=== PATIENT | male | born 1940 | race Caucasian/White ===

== ENCOUNTER → 2023-02-20 14:40 | Outpatient (REF) | payer MEDICARE, BC, SELFPAY | LOC: RAD 14:40 | PROVIDERS: ATTENDING PHYSICIAN Podiatrist Foot Surgery; FAMILY PHYSICIAN Internal Medicine | DX: M21.619 Bunion of unspecified foot (principal); S80.829A Blister (nonthermal), unspecified lower leg, initial encounter | CPT/HCPCS: 93922; 93925 ==

== ENCOUNTER → 2023-07-30 12:18 | Outpatient (REF) | payer MEDICARE, BC, SELFPAY ==
[2023-07-30 14:07] LABS: Hematocrit 36.2 % (39.0-52.0); Mean Corp Hgb Conc. 33.1 g/dL (33.0-37.0); Mean Corpuscular Hgb 30.5 pg (27.0-31.0); Mean Corpuscular Volume 92.1 fL (80.0-94.0); Mean Platelet Volume 11.9 fL (7.4-10.4); Platelet Count 109 10^3/uL (130-400); Red Blood Cell Count 3.93 10^6/uL (4.70-6.10); Red Cell Dist. Width 15.2 % (11.5-14.5); White Blood Cell Count 5.1 10^3/uL (4.8-10.8)
== END ==
LOC: SDSPAT 12:18
PROVIDERS: ATTENDING PHYSICIAN Orthopaedic Surgery Hand Surgery; FAMILY PHYSICIAN Internal Medicine
DX: Z01.818 Encounter for other preprocedural examination (principal)
CPT/HCPCS: 36415; 85027; 93005

== ENCOUNTER 2023-08-11 06:23 | Day surgery (SDC) | payer MEDICARE, BC, SELFPAY ==
[2023-07-30 13:36] VITALS: BMI 27.1
--- NOTE | 2023-07-31 10:30 | CM ---
Late entry for 07/28/23. Patient's Daughter, Belen Reeves along with her Sister called me stating that the Orthopedic Surgeon's office had stated that I had denied a skilled stay for him, after his upcoming surgery. I stated that was not true, and
that I had explained that because he is currently scheduled as an outpt , that he would therefore, based on Medicare's 3 Inpt qualifying stay for their SNF benefit, he would not qualify for a SNF stay under Medicare. They asked if the surgeon could
change the loc to inpt, and I explained that only if there was a medical reason to change the level of care once he is here.I explained we are unable to change it just so that he qualifies for a SNF stay under Medicare as that would be considered
fraud ,which they understood. I reviewed the other options of either paying privately for a SNF, hiring 18/01 care givers or taking him home with one of them. They at first declined all of those options and asked how we could send someone home that
currently uses a walker and will have difficulty with one arm in a sling using that walker and would be a fall risk and unable to care for himself. I explained that I understood their concern, and was not saying he should be discharged home alone.
What I was trying to explain how the SNF benefit worked under Medicare.They asked if his level of care could change once he comes to the hospital, and I stated yes but it would need to be for a medical reason for that to occur, and reminded them
even if it was changed for a medical reason he would need to meet inpatient level of care for 3 days to qualify. They stated they understood, and asked what an estimated private pay rate would be for a SNF and I stated high $300 to $400 a day on
average. They asked if they could set that up ahead of time and I said yes they would just need to call the SNF of their choice to confirm their daily rate . I also stated that it would be dependent on bed availability on the day that their Father
would be leaving the hospital. I asked if they had any preferences for a SNF and they stated [facility]. I stated I would reach out to the [employer] for [place] and ask her to give Belen a call back to
discuss what their examination supervisor rate is and the possibility of having him come to their facility after his surgery.
--- NOTE | 2023-07-31 12:02 | CM ---
Call received from Lora ([phone]) at [facility] in [place]. She stated she was just calling to discuss this patient's upcoming surgery. She stated that he was in for a recent visit with them. Lora stated alough the CO can not offer any
assistance with a SNF stay, they could offer Visiting nurse and a PT to come to his home. He also told her that he has [facility] for 4 hours a day. I states I had spoken to two of his Daughters earlier this week, and explained that in order to
qualify for a SNF stay under Medicare he would need a 3 night iinpatient stay, however currently he is scheduled for an outpt surgery. I explained the choices I had provided to the daughters, which would be to privately pay for a SNF, hire a 24/7
caregiver , or take him home with one of them until he is stronger. I had made her aware that they were going to explore the possibility of paying privately for him to go to [facility]. She stated that the patient did not
mention that to her . She gave me her contact information and fax number [phone] if she could be of any assistance.
[2023-08-11] VITALS (7 sets, daily range): BP systolic 100–134; BP diastolic 57–73; BMI 27.1
[2023-08-11] MEDS: TYLENOL 1000 MG PO (10:32)
[2023-08-11] MEDS: NORMOSOL-R 1000 IV (10:32)
[2023-08-11] MEDS: CELEBREX 200 MG PO (10:32)
== END 2023-08-11 15:05 | disposition home or self-care (01) ==
LOC: SDS 06:23
PROVIDERS: ATTENDING PHYSICIAN Orthopaedic Surgery Hand Surgery; FAMILY PHYSICIAN Internal Medicine
DX: M75.101 Unspecified rotator cuff tear or rupture of right shoulder, not specified as traumatic (principal); M75.41 Impingement syndrome of right shoulder
CPT/HCPCS: 29827; 29826; C1713

== ENCOUNTER 2023-08-28 13:10 | Inpatient (IN) | payer MEDICARE, BC, SELFPAY ==
[2023-08-28] VITALS (15 sets, daily range): BP systolic 101–154; BP diastolic 42–105; BMI 25.4
--- NOTE | 2023-08-28 11:01 | ED.GENMED ---
History of Present Illness
General
Chief Complaint: Fall
Source: patient and significant other
Exam Limitations: none
Time Seen by Provider: 08/28/23 10:07
Nursing documentation reviewed up to this point in time: agreed with
Travel History
Have you had any contact with someone who has COVID-19?: No
Do you have any symptoms of coronavirus? Fever > 100 degrees, chills, cough, shortness of breath, sore throat, loss of taste or smell, muscle aches, or headache?: No
History of Present Illness
History of Present Illness:
82-year-old male history of A-fib on Eliquis
About 2 weeks status post rotator cuff surgery by Dr. Sol
Since the surgeries had periods of confusion--caregiver/friend who is with him states that she think he took extra doses of his meds by mistake last night he had a headache, today he felt like he was going to fall, having some pain in his buttock
for a while since he has been lying around no fevers no vomiting, he also stated when he walks he thinks he might have been dehydrated drank 32 ounces of water this morning
Past History
Past History
ED Past Medical History: Arrthythmia (PAF), CAD (Stents), GERD, HTN, Hypercholesterolemia, ME, Psychiatric (Anxiety) and Other (Raynaud's disease, Right BBB Cerebral hemorrhage, Chronic venous insufficiency); Negative NIDDM
ED Past Surgical History: Cardiac (PTCA with stent to proximal LAD 1998, A. fib cardioversion March 2010) and Other (Left lower extremity there is vein stripping)
Social History
Tobacco: Former smoker (Cigar occasionally and didn't inhale)
Alcohol: None
Drug: None
Personal:
Living: with family
Employment: Retired
Family History
Family History: Hypertension; Negative Sudden
Phy Exam
Physical Exam
Physical Exam:
Physical Exam
General: Confused elderly male with no signs of head or neck trauma
Neck: No tongue bite
Heart: Regular strong radial pulse
Lungs: no acute respiratory distress. clear bilaterally
Abdomen: Nontender
Neuro: Nontoxic moves all extremities
Skin: no rash
Psychiatric: cooperative
Extremities: no edema.
Course
Orders/Labs/Results
Orders:
Orders
08/28/23 Breakfast
Cholesterol Lowering
At Your Request: Full Participation
Cholesterol Lowering: Sodium, 2 Gram
08/28/23 Lunch
Cholesterol Lowering
At Your Request: Full Participation
08/28/23 10:35
Electrocardiogram (*1) Stat
Reason for Study: Other
Other Reason for Exam: Headache
CT Head W/o Iv Contrast Urgent
Comment:
Reason For Exam: headache on elquis
Cardiac Monitoring- Treatment ONCE
EKG- Treatment ONCE
08/28/23 11:08
Acetaminophen Urgent
Cardiovascular Evaluation Urgent
Comment: ADD ON
Complete Blood Count/With Diff Urgent
Comprehensive Metabolic Panel Urgent
Glycohemoglobin (HgbA1c) Urgent
Magnesium Urgent
Comment: ADD
Salicylate Urgent
08/28/23 11:16
Charcoal, Activated [Actidose-Aqua] 25 grams PO NOW STA
08/28/23 11:22
Fibrinogen Urgent
Protime/PTT Urgent
08/28/23 11:24
Prothrombin Complex(Pcc),Human [Kcentra] 1,670 unit Empty Viaflex Container 100 ml [Viaflex Empty Container] 60 ml IV NOW
08/28/23 12:08
Labetalol HCl [Trandate] 10 mg IV Q6HPRN PRN
Labetalol HCl [Trandate] 5 mg IV NOW STA
08/28/23 12:09
NIH Stroke Scale As Directed
Neurological Checks As Directed
Frequency: q4h
08/28/23 12:10
Urinalysis Reflex To Culture Urgent
Date Specimen was Collected: 08/28/23
Time Specimen was Collected: 12:08
Urine Microscopic Reflex Cult Urgent
08/28/23 12:51
Admit/Transfer Patient As Directed
Co-Sign Provider:
Level of Care: Inpatient admission
Assign to:: ICU
Physician / Group: chon garcia
Diagnosis: acute intracerebreal hemorhage
Reason for Hospitalization: acute intracerebral hemorrhage
Expected length of stay greater than two midnights?: Yes
ELOS- Estimated Length of Stay in days: 3
I certify the patient meets the requirements for IP care: Yes
08/28/23 12:53
Code Status As Directed
Resuscitation Status: Do not resuscitate
Reached after discussion with pt or family/Healthcare POA: Yes
DNR Bracelet Application ONCE
08/28/23 15:06
Alprazolam [Xanax] 0.25 mg PO HSPRN PRN
Ondansetron Injectable [Zofran] 4 mg IV Q6HPRN PRN
08/28/23 15:06
NEUROLOGY CONSULT Routine
Consulting Provider: Shaun De La Cruz
Was physician already notified: Yes
Neurosurgery Consult Routine
Consulting Provider: Alicia Fierro
Was physician already notified: Yes
VTE Contraindication Routine
VTE Mechanical Device Contraindication: Medical Contraindication
Pharmocologic Contraindication: Bleeding
Activity As Directed
Activity Level: As Tolerated
Elevate head of bed [Head of Bed-Restrictions] As Directed
Elevation Level: 45 degrees
Pneumatic Compression Sleeves As Directed
Type: Knee high
Vital Signs As Directed
Frequency: Per unit guidelines
DX Deep Vein Thrombosis Video Routine
08/28/23 15:20
Lidocaine [Lidocaine 4% Patch] 1 patch TOPICAL DAILYPRN PRN
08/28/23 16:00
Acetaminophen [Tylenol] 1,000 mg PO TID
08/28/23 18:00
CT Head W/o Iv Contrast Routine
Comment:
Reason For Exam: follow up for intraventricular hemmorhage
08/28/23 20:00
Lactobac/Bifidobac [Visbiome] 1 cap PO BID
08/28/23 22:00
Nebivolol HCl [Bystolic] 5 mg PO HS
08/29/23 03:41
Cardiovascular Evaluation IN AM
Complete Blood Count/No Diff IN AM
Comprehensive Metabolic Panel IN AM
Direct Bilirubin IN AM
Magnesium IN AM
Phos [Phosphorus] IN AM
08/29/23 06:00
Occupational Therapy Consult [Ot Eval And Treat] IN AM
Physical Therapy Consult [Pt Eval And Treat] IN AM
Activity Level: As Tolerated
08/29/23 08:00
MR Brain Without Contrast Routine
Comment: Normal MRA head previously
Reason For Exam: IVH, any signs of cavernoma other vessel abn
Recent pill cam endoscopy?: No
Atorvastatin [Lipitor] 80 mg PO DAILY
Cholecalciferol (Vitamin D3) [VITAMIN D3 (cholecalciferol)] 50 mcg PO DAILY
Finasteride [Proscar] 5 mg PO DAILY
Furosemide [Lasix] 20 mg PO DAILY
Pantoprazole [Protonix] 40 mg PO DAILY
Potassium Chloride [KCl] 10 meq PO DAILY
08/30/23 03:31
Basic Metabolic Panel IN AM
Complete Blood Count/No Diff IN AM
08/31/23 04:39
Basic Metabolic Panel IN AM
Complete Blood Count/No Diff IN AM
09/01/23 06:32
Basic Metabolic Panel IN AM
Abnormal Lab Results
08/28/23 08/28/23 08/28/23
11:08 11:22 12:10
RBC 3.84 L 10^6/uL
(4.70-6.10)
Hgb 11.8 L g/dL
(13.0-18.0)
Hct 34.7 L %
(39.0-52.0)
RDW 14.6 H %
(11.5-14.5)
MPV 10.7 H fL
(7.4-10.4)
Absolute Lymphs (auto) 0.9 L 10^3/uL
(1.2-3.4)
Lymphocytes % 16.6 L %
(20.5-51.1)
Monocytes % 11.5 H %
(1.7-9.3)
PT 18.3 H Sec
(11.4-14.6)
APTT 39.5 H Sec
(23.4-35.0)
Sodium 134 L mmol/L
(135-145)
BUN 30 H mg/dl
(9-20)
Hemoglobin A1c 6.0 H %
(4.0-5.6)
Total Bilirubin 1.8 H mg/dl
(0.2-1.3)
Alkaline Phosphatase 236 H U/L
(38-126)
Ur Occult Blood Reflex 1+ A
(Negative)
Urine Bacteria (Reflex) Few A
(Negative)
Salicylates < 1.0 L mg/dl
(2.0-20.0)
Acetaminophen < 10 L ug/ml
(10-30)
08/28/23 11:08
08/28/23 11:08
Vital Signs
Initial and Last Documented VS:
Initial Vital Signs
Temp Pulse Resp BP Pulse Ox
98.6 F 61 16 146/93 100
08/28/23 08:30 08/28/23 08:30 08/28/23 08:30 08/28/23 08:30 08/28/23 08:30
Last Documented Vital Signs
Temp Pulse Resp BP Pulse Ox
97.8 F 74 16 141/56 99
09/01/23 15:04 09/01/23 15:04 09/01/23 15:04 09/01/23 15:04 09/01/23 15:04
MDM/Problems Addressed
Differential Diagnosis Includes:
Intracerebral hemorrhage, electrolyte abnormality subdural although no direct head trauma
MDM/Problems Addressed:
Confusion headache
Chronic conditions affecting care:
A-fib
Chronic conditions affecting care: Arrhythmia
Acute Exacerbation and/or Progression of Chronic Illness: Arrhythmia
*Radiology
Radiology exam reviewed: preliminary read by ED provider and radiology read reviewed
*Pulse Oximetry
Patient hypoxic: no
*Critical Care Note
Total Time (30-74mins, 75-104mins- exclusive of procedures): 40
Update Note
Update Note:
Update, CT noted reviewed with radiology looks like a spontaneous and ventricular bleed, not aneurysmal based upon recent imaging, reviewed with neurology neurosurgery drawing checker will reverse here keep blood pressure under 140 admit to [place]
ED Attending Note
-
Portions of this chart may have been created with voice recognition software.� Occasional wrong word or��sound alike� substitutions may have occurred due to the inherent limitations of voice recognition software.
Discharge Plan
Departure
Patient Disposition: Admit
Date of Disposition: 08/28/23
Time of Disposition: 11:26
Admit to: ICU
Presentation/result/management discussed w/ accepting MD/DO: Hospitalist
Patient with high blood pressure during this ER visit?: No
Condition: Serious
Covid-19: Not Applicable
Discharge Problem:
Acute intracerebral hemorrhage
Interventions
Interventions:
*General Assessment Last Done: 08/28/23 08:30
*Neglect/Abuse Screening Last Done: 08/28/23 08:30
ED- Fall Risk Assessment Last Done: 08/28/23 09:15
*Nursing Disposition Last Done: 08/28/23 14:31
ED-Musculoskeletal Assessment Last Done: 08/28/23 09:16
ED- Neurological Assessment Last Done: 08/28/23 13:26
ED-Skin Assessment Last Done: 08/28/23 09:16
Discharge Date and Time
Discharge Date/Time: 08/28/23 14:59
[2023-08-28 11:27] LABS: % Basophils 0.9 % (0-2); % Eosinophils 1.1 % (0-6); % Immature Granulocytes 0.2 % (0-0.5); % Lymphocytes 16.6 % (20.5-51.1); % Monocytes 11.5 % (1.7-9.3); % Neutrophils 69.7 % (42.2-75.2); Absolute Basophils 0.1 10^3/uL (0-0.2); Absolute Eosinophils 0.1 10^3/uL (0-0.7); Absolute Lymphocytes 0.9 10^3/uL (1.2-3.4); Absolute Monocytes 0.6 10^3/uL (0.1-0.6); Absolute Neutrophils 3.8 10^3/uL (1.4-6.5); Hematocrit 34.7 % (39.0-52.0); Hemoglobin 11.8 g/dL (13.0-18.0); Mean Corpuscular Hgb 30.7 pg (27.0-31.0); Mean Corpuscular Volume 90.4 fL (80.0-94.0); Mean Platelet Volume 10.7 fL (7.4-10.4); Nucleated Red Blood Cells % 0 % (-); Platelet Count 137 10^3/uL (130-400); Red Blood Cell Count 3.84 10^6/uL (4.70-6.10); Red Cell Dist. Width 14.6 % (11.5-14.5); White Blood Cell Count 5.5 10^3/uL (4.8-10.8)
[2023-08-28 11:41] LABS: ALT (SGPT) 50 U/L (0-50); AST (SGOT) 51 U/L (17-59); Acetaminophen < 10 ug/ml (10-30); Alkaline Phosphatase 236 U/L (38-126); Blood Urea Nitrogen 30 mg/dl (9-20); Calcium 9.2 mg/dl (8.4-10.2); Carbon Dioxide 26 mmol/L (22-30); Chloride 103 mmol/L (98-107); Glucose 97 mg/dl (70-99); Potassium 4.8 mmol/L (3.5-5.1); Salicylate < 1.0 mg/dl (2.0-20.0); Sodium 134 mmol/L (135-145); Total Bilirubin 1.8 mg/dl (0.2-1.3); Total Protein 6.3 g/dl (6.3-8.2); eGFR > 60.00
[2023-08-28] MEDS: KCENTRA 60 UNIT IV (11:42)
--- NOTE | 2023-08-28 11:43 | CON.INTV ---
Consultation
Consultation Request
Date/Time Consultation Requested: 08/28/20231129
Date/Time Consultation Performed: 08/28/20231133
Requesting Provider: Dr. Escobedo
Performing Provider: Dr. Calhoun
Reason for Consultation: ICH
Medical History
-
Chief Complaint: Dizziness/weakness
History of Present Illness:
82-year-old male with a past medical history of anxiety, hyperlipidemia, A-fib on Eliquis, PND on Flonase, hypertension, GERD and CAD who presents with confusion and dizziness with fall. Patient had a rotator cuff surgery about 2 weeks ago by
[facility]. Since that time he has been having periods of confusion. Apparently he took extra medications yesterday for headache and today he felt like he was unsteady on his feet. He was walking in his living room today, felt weak and fell but
denies LOC. In the ER he was afebrile to 98.6 �F, heart rate 65, respiratory rate 17 breaths/min, BP 146/81, saturating 97% on room air. Initial labs showed mild hyponatremia to 134, BUN 30, total bilirubin 1.8, ALP elevated at 236. Coagulation
studies are pending. Hb 11.8, platelet count 137. Tylenol and salicylate levels are negative. CT head performed showing hyperattenuation in the posterior horns of bilateral lateral ventricles. Prothrombin complex concentrate given as patient
takes Eliquis at home. Imaging was reviewed with neurology/neurosurgery. Neurosurgery says that there is no acute neurosurgical intervention required at this time. Patient now being transferred to ICU for further care and critical care services
consulted for additional management/recommendations.
When I saw the pt he was in bed in NAD. BP 131/66, HR 73, SpO2 97% on room air. He had a BENTON this AM (frontal - non-severe), but it is gone now. He has no arm or leg weakness and denies numbness/tingling. He otherwise feels well - denies CP, SOB,
abd pain, N/V/f/c.
PMHx: A-fib on Eliquis, CAD s/p stent (to LAD � 1998), hypertension, hyperlipidemia, history of AR, history of rheumatic heart disease, RBBB, former tobacco use disorder, sleep apnea, IBS, cataracts, impaired vision, history of melanoma, varicose
veins, anxiety
PSHx: Coronary stent, varicose vein stripping, melanoma removal, cardioversion (2009), hemorrhoidectomy, septoplasty, carpal tunnel release (left � 2018), bilateral cataract surgery
Past Medical History
Past Medical History: Other (above as per HPI)
Past Surgical History: Other (above as per HPI)
Social History
Tobacco: Former Smoker
Alcohol: None
Drug: None
Personal:
Living: With Family
Employment: Retired
Family History
Family History: Hypertension
Allergies / Home Medications
Allergies
Allergy/AdvReac Type Severity Reaction Status Date / Time
amlodipine Allergy Swelling Verified 08/28/23 08:29
diltiazem Allergy edema Verified 08/28/23 08:29
montelukast sodium Allergy Rash Verified 08/28/23 08:29
[From Singulair]
nifedipine [Nifedipine] Allergy edma Verified 08/28/23 08:29
ramipril [From Altace] Allergy cough Verified 08/28/23 08:29
valsartan [From Diovan] Allergy COUGH Verified 08/28/23 08:29
FERNANDO Inhibitors AdvReac cough Verified 08/28/23 08:29
[Fernando Inhibitors]
oxycodone HCl [From Percocet] AdvReac stomach Verified 08/28/23 08:29
ache
spironolactone AdvReac tenderness Verified 08/28/23 08:29
of breast
tamsulosin AdvReac lightheaded Verified 08/28/23 08:29
Home Medications
Medication Instructions Recorded Confirmed Last Taken Type
nitroglycerin 0.4 mg sublingual 0.4 mg sublingual [id number] PRN 12/26/11 08/11/23 Unknown History
tablet chest pain
atorvastatin 80 mg tablet 80 mg PO DAILY High cholesterol 10/30/17 08/11/23 08/10/23 History
apixaban 5 mg tablet (Eliquis) 5 mg PO BID Blood clot 10/17/19 08/11/23 08/01/23 08:00 History
prevention/tx
alprazolam 0.25 mg tablet 0.25 mg PO HS Mental Health/Anxiety 08/07/20 08/11/23 08/10/23 History
fluticasone propionate 50 1 - 2 spray intranasal BID Allergy 08/07/20 08/11/23 08/10/23 History
mcg/actuation nasal Symptoms
spray,suspension
losartan 50 mg tablet 50 mg PO DAILY Blood pressure 08/07/20 08/11/23 08/10/23 History
potassium chloride 10 mEq 10 meq PO DAILY Electrolyte 08/07/20 08/11/23 08/10/23 History
tablet,extended release(part/cryst) Repletion
Lactobacillus acidophilus 1 cap PO BID 08/07/23 08/11/23 08/04/23 History
ascorbic acid (vitamin C) 500 mg 1,000 mg PO DAILY 08/07/23 08/11/23 08/04/23 History
tablet (Vitamin C)
cholecalciferol (vitamin D3) 50 50 mcg PO DAILY 08/07/23 08/11/23 08/04/23 History
mcg (2,000 unit) tablet (Vitamin
D3)
finasteride 5 mg tablet 5 mg PO DAILY 08/07/23 08/11/23 08/10/23 History
furosemide 20 mg tablet 20 mg PO DAILY 08/07/23 08/11/23 08/10/23 History
lidocaine 5 % topical cream 1 applic topical BID PRN 08/07/23 08/11/23 Unknown History
Spinal/back pain
magnesium 200 mg tablet 200 mg PO DAILY 08/07/23 08/11/23 08/04/23 History
nebivolol 5 mg tablet (Bystolic) 5 mg PO HS 08/07/23 08/11/23 08/10/23 History
omeprazole 40 mg capsule,delayed 40 mg PO DAILY@0600 08/07/23 08/11/23 08/10/23 History
release
peg 400-propylene glycol (PF) 0.4 1 drp ophthalmic (eye) PRN PRN Dry 08/07/23 08/11/23 Unknown History
%-0.3 % eye drops in a dropperette Eyes
(Systane (PF))
rimegepant 75 mg disintegrating 75 mg PO ONCE PRN Headaches 08/07/23 08/11/23 Unknown History
tablet (Nurtec ODT)
vit C 250 mg-vit E 90 mg-zinc 40 1 tab PO BID 08/07/23 08/11/23 08/04/23 History
mg-copper 1 [id number]
capsule (PreserVision AREDS-2)
zinc acetate 50 mg (zinc) capsule 50 mg PO DAILY 08/07/23 08/11/23 08/04/23 History
Review of Systems
-
History Source: Patient
All other systems: Negative unless noted
Vitals / Labs / Diagnostic Testing
Vital Signs
Temp Pulse Resp BP Pulse Ox
98.6 F 65 17 146/81 97
08/28/23 08:30 08/28/23 11:15 08/28/23 11:15 08/28/23 11:12 08/28/23 09:45
Lab Data
08/28/23 11:08
08/28/23 11:08
Diagnostic Testing:
Physical Exam
-
HEENT: Normocephalic and Anicteric
Cardiovascular: S1/S2
Respiratory: Clear, Wheeze (negative), Rales (negative), Rhonchi (negative) and Non-Labored Respirations
GI: Soft, Non Distended and Non Tender
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
Skin: Warm and Dry
General: Comfortable and Chills (negative)
Assessment
-
Assessment: 82-year-old male with a PMHx of anxiety, hyperlipidemia, A-fib on Eliquis, PND on Flonase, hypertension, GERD and CAD who presents with confusion and dizziness with fall. Patient had a recent rotator cuff surgery about 2 weeks ago and
has been having increased periods of confusion since that time. He felt weak today while walking in his living room and fell but denies loss of consciousness or head trauma. CT head performed in the ER shows intraventricular hemorrhage involving
bilateral lateral ventricles, specifically the posterior horns. No acute neurosurgical intervention required as per neurosurgery. PCC given as patient takes Eliquis at home. Patient now being transferred to ICU for admission and critical care
services consulted for additional management/recommendations.
Chronic medical conditions [employer]AM MEMBER: A-fib on Eliquis, CAD s/p stent (to LAD � 1998), hypertension, hyperlipidemia, history of AR, history of rheumatic heart disease, RBBB, former tobacco use disorder, sleep apnea, IBS, cataracts, impaired vision,
history of melanoma, varicose veins, anxiety
Impression:
#Acute intra-ventricular hemorrhage involving bilateral lateral ventricles
#A-fib on Eliquis s/p PCC administration due to above
#Hyponatremia (mild)
#Anemia (baseline Hb 12-13 g/dL)
#Thrombocytopenia (baseline plt ~110-190)
#Elevated total bilirubin
#CAD
Plan:
- Strict SBP<140mmHg
- Elevate HOB>30-45�
- Avoid all anti-platelet/anti-coagulants until clear to resume as per neurology/neurosurgery
- Follow up INR and if >1.5 then will administer Vitamin K
- Neurochecks q1hr
- Neurology recs appreciated
- Stat CT head for any sudden change in mentation or change in neurochecks; for now I will order repeat CT head in 6-12 hours to assure stability of IVH
- Trend T. bili and ALP --> check GGT and if elevated then check RUQ US to rule out biliary/GB pathology
- Maintain MAP>65
- Replete K>3.5, Mg>1.8
- DVT ppx
Critical care statement: A total of 40 minutes of critical care time was provided for this patient today. This includes management of unstable vital signs, evaluation of the patient at bedside, reviewing the patient's pertinent medical records
including radiographs, microbiology, laboratory evaluations, and discussion with primary team, consultants, pharmacy, nutrition, physical therapy, case management, charge nurse, critical care nursing, and respiratory therapy.
Data:
CT head 08-28-2023:
IMPRESSION:
Small volume acute hemorrhage layering in the posterior horn of the lateral ventricles bilaterally, left slightly greater than right.
Findings compatible with diffuse cortical atrophy with nonspecific white matter changes as described above.
--- NOTE | 2023-08-28 12:07 | HPS.HSE ---
Addendum entered and electronically signed by uElogio Bailey MD 08/28/23 13:10:
82-year-old male with a past medical history of atrial fibrillation on Eliquis, recent rotator cuff repair on 08/11/[address] Sol, hypertension, and coronary artery disease presented status post fall secondary to dizziness. Patient was found
to have small intracranial hemorrhage in the posterior horn of the lateral ventricles bilaterally, left greater than right.
Appreciate neurosurgery input, no surgical intervention recommended at this time.
Patient has received prothrombin complex for Eliquis reversal.
Appreciate neurology and desktop support technician input, monitor in the ICU, keep systolic blood pressure less than 140 strict, neurochecks.
Increase home losartan from 50 mg daily to 50 mg twice daily, labetalol 10 mg IV every 6 hours as needed.
Daughter reports intermittent confusion.
He has no signs or symptoms of infection.
Will check urinalysis for completeness sake.
I have personally seen and examined the patient, and agree with the plan of care as documented by DARIUS Ramos.
Advance care planning discussed, patient is a DNR.
All other issues as outlined by the advanced care practitioner.
Original Note:
Family Physician
-
Family Physician: Yashira Contreras
Chief Complaint
-
dizzy
History of Present Illness
82-year-old male with a past medical history of hyperlipidemia, A-fib on Eliquis, hypertension, GERD and CAD who presents with dizziness and had a fall this morning.he fell on his right and denies hitting his head. denied any hip pain. patient
stated he was feeling great since the surgery. he does not take pain medication.� Patient had a rotator cuff surgery about [address] Sol. as per daughter, he refuses to take pain medication for his post op pain. patient refused physical
therapy. he thinks that he will get addicted to pain meds. patient complaining of can't think right to daughter and neighbor. he is is no sleeping well and not eating and drinking very well. . patient denied [place]. denied chest pain, sob. denied
abdominal pain, n,v, d. denied dysuria or hematuria.
.� CT head performed showing hyperattenuation in the posterior horns of bilateral lateral ventricles.� Prothrombin complex concentrate given as patient takes Eliquis at home.�
admitting for further management.
Medical History
Past Medical History
Past Medical History: Reports Other
Additional Past Medical History:
atrial fib
CAD
HTn
HLD
TN
RBBB
Sleep apnea
IBS
Melanoma
Varicose veins
Past Surgical History: Reports Other
Additional Past Surgical History:
Cardiac stents
Cardiac surgery
Varicose vein stripping
Melanoma removal
Cardioversion
Hemorrhoidectomy
carpal tunnel surgery
Rotator cuff repair
Social History
Tobacco: Non-smoker
Alcohol: Occasional
Drug: None
Living: Alone
Family History
Family History: Not pertinent
Allergies / Home Medications
Allergies reflects when Allergies were last updated in [facility].
Home Medications with original date entered in [facility]
Allergy/Medication List:
Allergies
Allergy/AdvReac Type Severity Reaction Status Date / Time
amlodipine Allergy Swelling Verified 08/28/23 08:29
diltiazem Allergy edema Verified 08/28/23 08:29
montelukast sodium Allergy Rash Verified 08/28/23 08:29
[From Singulair]
nifedipine [Nifedipine] Allergy edma Verified 08/28/23 08:29
ramipril [From Altace] Allergy cough Verified 08/28/23 08:29
valsartan [From Diovan] Allergy COUGH Verified 08/28/23 08:29
FERNANDO Inhibitors AdvReac cough Verified 08/28/23 08:29
[Fernando Inhibitors]
oxycodone HCl [From Percocet] AdvReac stomach Verified 08/28/23 08:29
ache
spironolactone AdvReac tenderness Verified 08/28/23 08:29
of breast
tamsulosin AdvReac lightheaded Verified 08/28/23 08:29
Home Medications
nitroglycerin 0.4 mg sublingual tablet 0.4 mg sublingual [id number] PRN chest pain 12/26/11
atorvastatin 80 mg tablet 80 mg PO DAILY High cholesterol 10/30/17
apixaban 5 mg tablet (Eliquis) 5 mg PO BID Blood clot prevention/tx 10/17/19
alprazolam 0.25 mg tablet 0.25 mg PO HS Mental Health/Anxiety 08/07/20
fluticasone propionate 50 mcg/actuation nasal spray,suspension 1 - 2 spray intranasal BID Allergy Symptoms 08/07/20
losartan 50 mg tablet 50 mg PO DAILY Blood pressure 08/07/20
potassium chloride 10 mEq tablet,extended release(part/cryst) 10 meq PO DAILY Electrolyte Repletion 08/07/20
Lactobacillus acidophilus 1 cap PO BID 08/07/23
ascorbic acid (vitamin C) 500 mg tablet (Vitamin C) 1,000 mg PO DAILY 08/07/23
cholecalciferol (vitamin D3) 50 mcg (2,000 unit) tablet (Vitamin D3) 50 mcg PO DAILY 08/07/23
finasteride 5 mg tablet 5 mg PO DAILY 08/07/23
furosemide 20 mg tablet 20 mg PO DAILY 08/07/23
lidocaine 5 % topical cream 1 applic topical BID PRN Spinal/back pain 08/07/23
magnesium 200 mg tablet 200 mg PO DAILY 08/07/23
nebivolol 5 mg tablet (Bystolic) 5 mg PO HS 08/07/23
omeprazole 40 mg capsule,delayed release 40 mg PO DAILY@0600 08/07/23
peg 400-propylene glycol (PF) 0.4 %-0.3 % eye drops in a dropperette (Systane (PF)) 1 drp ophthalmic (eye) PRN PRN Dry Eyes 08/07/23
rimegepant 75 mg disintegrating tablet (Nurtec ODT) 75 mg PO ONCE PRN Headaches 08/07/23
vit C 250 mg-vit E 90 mg-zinc 40 mg-copper 1 [id number] capsule (PreserVision AREDS-2) 1 tab PO BID 08/07/23
zinc acetate 50 mg (zinc) capsule 50 mg PO DAILY 08/07/23
Review of Systems
-
Constitutional: Reports No Symptoms
EENT: Reports No Symptoms
Respiratory: Reports No Symptoms
Cardiac: Reports No Symptoms
Abdomen/GI: Reports No Symptoms
: Reports No Symptoms
Musculoskeletal: Reports No Symptoms
Skin: Reports No Symptoms
Neurological: Reports Dizzy
Endocrine: Reports No Symptoms
Hematologic/Lymphatic: Reports No Symptoms
Psych: Reports No Symptoms
Physical Exam
Vital Signs
Vital Signs
Temp Pulse Resp BP Pulse Ox
98.6 F 65 17 146/81 97
08/28/23 08:30 08/28/23 11:15 08/28/23 11:15 08/28/23 11:12 08/28/23 09:45
Physical Exam
General: Well Developed, Well Nourished and No Apparent Distress
HEENT: NormoCephalic, Moist mucous membranes and Atraumatic
Respiratory: Clear
Cardiac: S1/S2 and Regular Rhythm; No Murmur or Rub
GI: Soft, Non Tender, Non Distended and Normal Bowel Sounds; No Organomegaly
Rectal: Deferred by Provider
Musculoskeletal: No Clubbing, No Cyanosis and No Edema
Skin: No Rash
Neuro: AO x 3 and Nonfocal/grossly intact
Psych: Calm
Laboratory Results
-
08/28/23 11:08
08/28/23 11:08
Laboratory Results
Total Bilirubin 1.8 mg/dl (0.2-1.3) H 08/28/23 11:08
AST 51 U/L (17-59) 08/28/23 11:08
ALT 50 U/L (0-50) 08/28/23 11:08
Alkaline Phosphatase 236 U/L (38-126) H 08/28/23 11:08
Data Reviewed
-
CT Scan: Report Reviewed by me
Lab Data: Labs Reviewed by me
Impression/Plan
-
#headache likely from acute hemorrhage in the posterior horn of the lateral ventricles bilaterally
-hgb 11.8
-head CT with Small volume acute hemorrhage layering in the posterior horn of the lateral ventricles bilaterally, left slightly greater than right.Findings compatible with diffuse cortical atrophy with nonspecific white matter changes as described
above.
-repeat CT, MRI as ordered
-as per neurosurgery no acute neurosurgical intervention required at this time.
-strict [id number], continue labetalol
-elevated head of bed 30-45
-hold eliquis
-Neuro check every one hour
-�Stat CT head for any sudden change in mentation or change in neurochecks
- repeat CT head in 6-12 hours to assure stability of IVH
-neurology, neurosurgeon consulted
#permanent atrial fib
-EKG with
-hold eliquis
#CAD with stents
-
#anxiety
-Xanax continued
#HLD
-statin continued
#BPH
-finasteride
#essential htn
-Lasix continued
-losartan continued
nebivolol continued
#GERD
-PPI continued
#DVT prophylaxis
-scd
#CODE status
-DNR
[2023-08-28] MEDS: TRANDATE 5 MG IV (12:29)
[2023-08-28 12:33] LABS: Urine Albumin Trace (Neg - Trace); Urine Bilirubin Negative (Negative); Urine Character Clear (Clear); Urine Color Yellow; Urine Glucose Negative (Negative); Urine Ketone Negative (Negative); Urine Leukocyte Negative (Negative); Urine Nitrite Negative (Negative); Urine Occult Blood 1+ (Negative); Urine Specific Gravity 1.015 (<1.030); Urine Urobilinogen Negative (Neg - 1+)
[2023-08-28 12:35] LABS: APTT 39.5 Sec (23.4-35.0); Fibrinogen 337 MG/DL (199-459); INR 1.54; PT 18.3 Sec (11.4-14.6)
--- NOTE | 2023-08-28 12:36 | CON.NEURO4 ---
Addendum entered and electronically signed by Shaun De La Cruz MD 08/28/23 13:50:
I saw and evaluated the patient I reviewed the note by Armida Hamm agree the findings the following comments:
82-year-old male with a past medical history of atrial fibrillation, previous intracranial hemorrhage, hypertension, peripheral neuropathy, dizziness and vertigo presented to hospital with headache and confusion.
Patient underwent right rotator cuff repair on 08/11 and his friend and caregiver who visits him most days notes that he just does not seem normal and been confused since then. At home she noted that there were clear abnormalities with his
medications as many of his medications were missing. He had complained of headache in the past few days. There had not been any obvious vomiting.
Patient denies any headache at this time he does not recall any instance of overtaking or missing medications, reports he did have a previous intracranial hemorrhage with no long-term deficits. Patient denies any nausea at this time.
Neurologic examination
Patient is wide-awake, conversational and examines to the examiner, no aphasia, he is confused and says the date is 2007 he does know [place] is president he cannot name the months of the year backwards, with simple tests of attention he does fairly
well and is able to count backwards from 20 adequately, calculation is impaired
Cranial nerves shows 3 mm and equal pupils react light bilaterally, resting gaze midline and normal extraocular movements no nystagmus no gaze preference, smile symmetric no dysarthria
Normal software developer intern strength in the right hand limited due to recent shoulder surgery, no pronator drift or weakness on the left arm shoulder abduction 5/5 arm flexion 5/5 hip flexion 5/5 bilaterally.
NIH stroke scale of 1 for as to the date. Not giving points for the right arm limited due to surgery on the shoulder..
CT head noncontrast showing bilateral intraventricular hemorrhage no parenchymal hemorrhage is seen no subdural subarachnoid hemorrhage no masses. Ventricles are dilated and no change from previous ventricular dilation from previous brain imaging.
Previous MRA of the head and neck did not show any vascular malformations aneurysms or significant stenosis.
Assessment:
Intraventricular hemorrhage in a patient on Eliquis for atrial fibrillation. Suspicion for possible extra doses of apixaban inadvertently. Previous MRA of the head did not indicate aneurysm or other vascular abnormality of the brain.
Fair likelihood for mild cognitive impairment or mild dementia at baseline.
Recommendations
-ICU monitoring
-Neurosurgery consultation
-Neurologic checks and NIH stroke scales
-Minimize sedating medications
-Systolic blood pressure goal less than 140
-Patient received reversal with Kcentra for Eliquis, agree with planned for recheck INR and Vitamin K if > 1.5
-Follow platelet count
-Check CT head non contrast approximately 6 and 24 hours after the initial study
-Check MRI of the brain without contrast, not recommending CTA or MRA of head
-Head of bed 30 degrees
-Goal normonatria
-Not recommending hyperosmolar therapy
-Hold all antiplatelet, antithrombotic, heparin DVT prophylaxis for time being
-Treat headaches with Tylenol
ICU time = 60 minutes
Original Note:
Documented by User: Armida Welsh NP 08/28/23 13:29
Consultation - Neurology 4
-
CONSULTING PHYSICIAN: Milly De La Cruz MD
REFERRING PHYSICIAN: ER/Dr. Escobedo
DICTATED BY: DARIUS Franks
DATE/TIME OF REQUEST: 08/28/23
DATE/TIME OF CONSULTATION: 08/28/23
Reason for Consultation: Acute intracerebral hemorrhage
History of Present Illness:
This is an 82-year-old male who has presented to the hospital with report of headache and confusion. 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
2019.
From previous evaluation by Juana MCCOY on 05/27/23:
'82-year-old male presents for evaluation of headaches, vertigo of the polyneuropathy. He states that he has episodes of lightheadedness and has been previously diagnosed with cervical vertigo. He previously followed with Dr. Harris. He had motor
nerve block injections done without improvement in his pain. He complains of bioccipital and bifrontal headaches with associated photophobia and occasional nausea. They are not pulsatile. No associated phonophobia. He has these at times associated
with his vertigo. He has a headache nearly every day. He tried vestibular PT which worsen the symptoms. Vertigo is at times associated with neck movements.�������He also complains of neuropathy in the bilateral lower extremities with numbness
extending to the level of the knees bilaterally. He has some muscle weakness with this as well. He denies any associated pain. He had an ultrasound done recently evaluation for this. He is very frustrated as no clear cause for his neuropathy has
been found. He also has a history of spinal stenosis in the lumbar and cervical spine. He has had steroid injections in the C-spine in the past. He was adopted and does not know his family history so is unclear if he has a family history of
peripheral neuropathy. He cannot take NSAIDs. He took tramadol in the past which she says caused issues with breathing. He also tried balance physical therapy. He is also been prescribed Valium in the past for muscle spasms which left him very
tired. His last EMG/nerve conduction study was done over a year ago. He is also been seen by Dr. Gore and Dr. Garza.������
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 Webber of [facility]. He was told that he does not need a shunt placed. He also has a history of intracranial hemorrhage in 2019 that he says was spontaneous and occurred while he was
on warfarin. He is currently on Eliquis.�������
MRI of the C-spine done in November 2018 at [facility] showed 'multilevel degenerative disc disease and spondylosis with subtle signal abnormality in the proximal cervical cord at C3/C4 that may represent subtle myelomalacia secondary to acquired
stenosis.'��MRI C-spine done without contrast on February 18, 2023 at [place] which showed 'chronic degenerative changes in the cervical spine including degenerative disc disease with multilevel disc osteophyte complexes and facet arthrosis
superimposed on a slight cervical levoscoliosis, moderate spinal canal stenosis at C3/C4 and C4/C5. Mild spinal canal stenosis at C5/C6, C6/C7 and C7/T1. Varying degrees of chronic multilevel bilateral neuroforaminal stenosis, overall most
pronounced at the right at C3/C4, and on the left at C4/C5, bilaterally at C5/C6 and on the left at C6/C7.'�������
04/01/23: He had extensive blood work done since his last appointment. 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 His other blood work was all unremarkable/within normal limits. MRI of the cervical spine done without
contrast on February 18, 2023 showed chronic degenerative changes including degenerative disc disease with multilevel disc osteophyte complexes and facet arthrosis superimposed on a slight cervical levoscoliosis. Moderate and mild spinal canal
stenosis was seen at several levels as well as varying degrees of chronic multilevel bilateral neuroforaminal stenosis at several levels. MRA of the [place] and of the neck showed no significant high-grade stenosis or occlusion. Mild
stenosis was seen of the left carotid bulb.��He tried Nurtec every other day as headache prevention which worked somewhat for migraines but did not help his neck pain.�������
05/01/23: Headaches are significantly improved with Nurtec but [facility] will not [facility] this as they want him to try Imitrex. He tried gabapentin for about 11 or 12 days which caused significant dizziness and he subsequently stopped.������
Today (05/27/2023)�������Pt seen int he office. He did not start Cymbalta as he feared it may interact with his Eliquis. He did not start Nurtec as it was extremely expensive had neuropathic pain. He continues to have headaches though more mild. He
has no recent falls. He does continue to have ongoing dizziness. He admits to some anxiety.'
08/28/23: Patient underwent a right rotator cuff repair on 08/11/23. Since surgery, his caregiver/friend reports that he has had some confusion. She checked his pill box sometime this week and all of his pills were missing. Last night (08/27/23),
patient was complaining of a headache and he took Nurtec. This morning he notes that his gait was unsteady and he felt weak, prompting his friend to bring him to the ER for evaluation. CT head was obtained in the ER and demonstrates a small volume
of acute hemorrhage layering in the posterior horns of the lateral ventricles, L>R. Blood pressure is 146/93. Currently, patient denies any headache, dizziness, vision changes, speech/swallow difficultly, nausea/vomiting, numbness, chest pain,
palpitations, and shortness of breath. He had a spontaneous/unexplained ICH in 2019 while on warfarin and was switched to Eliquis for Afib after he recovered from the bleed.
Past Medical History: Spontaneous ICH while on warfarin 2019, NPH, paroxysmal Afib (Eliquis), vertigo, HTN, HLD, NSTSEMI, RBBB, aortic regurgitation, mild mitral regurgitation, carotid artery disease, cervical and lumbar spinal stenosis, Raynaud's
syndrome, hepatitis B, EMILY, GERD, depression, anxiety, pulmonary nodule, DDD L4-L5, eczema, gout, rheumatic fever, basal cell carcinoma, IBS, right rotator cuff tear, anxiety
Surgical History: Right rotator cuff repair 08/11/23, LAD stent, varicose vein stripping, EGD, cardioversion, hemorrhoidectomy, septoplasty, left carpal tunnel release, Left S1 and Right L5 TFESI, cervical CAMRON, excision of BCC, b/l cataract removal
Family History: Adopted.
Social History: Former pipe smoker. Denies alcohol and illicit drug use.
Allergies: See below.
Home Medications: See below.
Review of Symptoms:
Patient denies any fever, headache, chest pain, shortness of breath, GI or symptoms.
�Per the HPI.�All systems are reviewed negative except above.
Physical Exam:
The patient is afebrile, abdomen is nondistended, breathing is unlabored, skin is warm and dry, no edema. RUE in shoulder immobilizer.
NIH Stroke Scale:
I performed the NIH stroke scale on the patient on 08/28/23 at 1215. The patient scored 0 points on the NIH stroke scale assessment, which were assigned as follows: See below.
Neurologic Examination:
The patient is awake, alert and oriented x 3. Unable to state the months of the year backwards at all, able to slowly count down from 20 to 1. He is able to follow one-step commands and answer questions appropriately. There is no aphasia or
dysarthria. On cranial nerve assessment, pupils are 3 mm bilateral, round and reactive to light and accommodation. Visual hernandez are full. Extraocular movements are intact. Facial sensations are intact and bilaterally symmetrical, there is no facial
asymmetry. Hearing is intact bilaterally to normal conversation volume. Tongue palate and uvula are midline. Motor strengths are 5/5 left upper, and 5/5 bilateral lower extremities on medical research [place]in[place] scale. Right hand software developer intern 5/5, VIVIAN RUE
strength due to recent surgery. There is no drift or involuntary movement noted. Deep tendon reflexes are 1+ left upper and bilateral lower extremities and Babinski is absent bilaterally. There was no extinction noted on double simultaneous
stimulation. Coordination is intact by finger to nose in the LUE, VIVIAN RUE.
Lab Results: See below.
Neuro Imaging:
1. CT Head 08/28/23: Small volume acute hemorrhage layering in the posterior horn of the lateral ventricles bilaterally, left slightly greater than right. Findings compatible with diffuse cortical atrophy with nonspecific white matter changes as
described above.
Differentials for the patient's presentation include:
1. Acute bilateral intraventricular hemorrhage on Eliquis therapy, possibly secondary to inappropriate Eliquis dosing.
2. History of spontaneous ICH on warfarin therapy.
3. Altered mental status since surgery on 08/11/23.
Patient has the following risk factors for their symptoms: History of spontaneous ICH on warfarin therapy, confusion, HTN
Recommendations:
-Provide prothrombin complex as ordered for Eliquis reversal.
-Hold all anticoagulation, antiplatelet, and NSAID medications.
-Strict blood pressure control SBP<140.
-Repeat CT head imaging in 6 hours.
-MRI brain noncontrast ordered for 08/29/23 at 0800.
-PRN Tylenol for headache.
-Neurological checks q1hr and NIHSS per unit guidelines.
-HOB <30-45 degrees.
-SCDs for DVT prophylaxis.
-PT/OT/ST evaluations.
-Will follow.
Discussed patient care with: Dr. De La Cruz, Dr. Escobedo, the patient
NIH Stroke Score
Subsequent NIH Scale
Date of Subsequent NIH Scale: 08/28/23
Time of Subsequent NIH Scale: 12:15
NIH Stroke Score
Level of Consciousness: 0 - Alert
LOC Questions: 0-Answers both correctly
LOC Commands: 0-Performs both correctly
Best Horizontal Gaze: 0-Normal
Visual Hernandez: 0=Normal, no visual loss
Facial Palsy: 0=Normal, symmetrical
Motor - Right Arm: UN=Amputation/jointfusion
Motor - Left Arm: 0=No drift 10 seconds
Motor - Right Le-No drift 5 seconds
Motor - Left Le-No drift 5 seconds
Limb Ataxia: 0-Absent
Sensation: 0-Normal
Best Language: 0-No aphasia
Dysarthria: 0-Normal
Extinction and Inattention: 0-No abnormality
Total Score:: 0
Vital Signs and Labs
-
Vital Signs and Labs:
Vital Signs
Temp Pulse Resp BP Pulse Ox
98.6 F 91 16 154/105 97
08/28/23 08:30 08/28/23 12:01 08/28/23 12:01 08/28/23 12:01 08/28/23 09:45
Lab Results
08/28/23 11:08
08/28/23 11:08
PT 18.3 Sec (11.4-14.6) H 08/28/23 11:22
INR 1.54 08/28/23 11:22
APTT 39.5 Sec (23.4-35.0) H 08/28/23 11:22
Sodium 134 mmol/L (135-145) L 08/28/23 11:08
Potassium 4.8 mmol/L (3.5-5.1) 08/28/23 11:08
BUN 30 mg/dl (9-20) H 08/28/23 11:08
Glucose 97 mg/dl (70-99) 08/28/23 11:08
Calcium 9.2 mg/dl (8.4-10.2) 08/28/23 11:08
Medications
-
Active Medications
Generic Name Dose Route Start Last Admin
Trade Name Freq PRN Reason Stop Dose Admin
Labetalol HCl 10 mg 08/28/23 12:08
Labetalol Hcl 5 Mg/1 Ml (20 Mg/4 Ml) Injection IV 09/25/23 12:07
Q6HPRN PRN
goal SBP less than 140
Home Medications
Medication Instructions Recorded
atorvastatin 80 mg tablet 80 mg PO DAILY High cholesterol 10/30/17
apixaban 5 mg tablet (Eliquis) 5 mg PO BID Blood clot 10/17/19
prevention/tx
alprazolam 0.25 mg tablet 0.25 mg PO HS Mental Health/Anxiety 08/07/20
losartan 50 mg tablet 50 mg PO DAILY Blood pressure 08/07/20
Lactobacillus acidophilus 1 cap PO BID 08/07/23
cholecalciferol (vitamin D3) 50 50 mcg PO DAILY 08/07/23
mcg (2,000 unit) tablet (Vitamin
D3)
finasteride 5 mg tablet 5 mg PO DAILY 08/07/23
furosemide 20 mg tablet 20 mg PO DAILY 08/07/23
magnesium 200 mg tablet 200 mg PO DAILY 08/07/23
nebivolol 5 mg tablet (Bystolic) 5 mg PO HS 08/07/23
omeprazole 40 mg capsule,delayed 40 mg PO DAILY@0600 08/07/23
release
rimegepant 75 mg disintegrating 75 mg PO ONCE PRN Headaches 08/07/23
tablet (Nurtec ODT)
vit C 250 mg-vit E 90 mg-zinc 40 1 tab PO BID 08/07/23
mg-copper 1 [id number]
capsule (PreserVision AREDS-2)
Maalox Liquid 1 dose PO DAILYPRN PRN stomach 08/28/23
discomfort
ascorbic acid (vitamin C) 1,000 mg 1,000 mg PO DAILY 08/28/23
tablet (Vitamin C)
fluticasone propionate 50 2 spray intranasal DAILY PRN 08/28/23
mcg/actuation nasal congestion
spray,suspension
lidocaine 5 % topical patch 1 patch topical DAILY PRN apply to 08/28/23
back (L4-L5)
potassium chloride 10 mEq 10 meq PO DAILY 08/28/23
tablet,extended release (Klor-Con)
zinc 50 mg tablet 50 mg PO DAILY 08/28/23
Allergies
-
Allergies
Allergy/AdvReac Type Severity Reaction Status Date / Time
amlodipine Allergy Swelling Verified 08/28/23 08:29
diltiazem Allergy edema Verified 08/28/23 08:29
montelukast sodium Allergy Rash Verified 08/28/23 08:29
[From Singulair]
nifedipine [Nifedipine] Allergy edma Verified 08/28/23 08:29
ramipril [From Altace] Allergy cough Verified 08/28/23 08:29
valsartan [From Diovan] Allergy COUGH Verified 08/28/23 08:29
FERNANDO Inhibitors AdvReac cough Verified 08/28/23 08:29
[Fernando Inhibitors]
oxycodone HCl [From Percocet] AdvReac stomach Verified 08/28/23 08:29
ache
spironolactone AdvReac tenderness Verified 08/28/23 08:29
of breast
tamsulosin AdvReac lightheaded Verified 08/28/23 08:29

Documented by User: Shaun De La Cruz MD 08/28/23 13:40
NIH Stroke Score
NIH Stroke Score
Total Score:: 0
[2023-08-28 13:24] LABS: Urine Bacteria Few (Negative); Urine Red Blood Cell 0-2 /HPF (0-2); Urine White Cell 0-2 /HPF (0-5)
[2023-08-28 14:23] LABS: HDL Cholesterol 44 mg/dl; LDL Cholesterol, Calculated 27 mg/dl; Total Cholesterol 80 mg/dl (50-199); Triglyceride 46 mg/dl (10-149); Very Low Density Lipoprotein 9 mg/dl (0-30)
--- NOTE | 2023-08-28 16:54 | PTCARENOTE ---
At 15:30 patient admitted from ED admission DX acute intracerebral hemorrhage. patient transfer via stretcher . A/fib 61. BP via left upper arm 131/66 MaP 84. Temp 95.9 patient covered with warm blankets temp will be re-checked. Neuro check done Q 1
hr WNL see neuro check assessment. NIH done on admission. WNL. Abdomen soft non tender pt able to tolerate low cholesterol diet without difficulties, no problem swallowing. LBM Incontinent of urine to continent . Condom catheter applied size
30. RT shoulder in sling due to recent Rt shoulder surger. RT shoulder steri strips intact. Limited ROM to RT shoulder. pt denies headache. CT head at 18:00 call romero within reach. HOB elevated
[2023-08-28] MEDS: APRESOLINE 25 MG PO (17:04)
[2023-08-28] MEDS: TYLENOL 1000 MG PO ×2 (17:04→22:06)
--- NOTE | 2023-08-28 18:17 | PTCARENOTE ---
CT head done per order results pending. AAO x3. Rt arm elevated on a pillow secured in a sling Geovanna check done Q 1 hr WNL see neuro check assessment; afib on a monitor BP stable
[2023-08-28] MEDS: COZAAR 50 MG PO (20:00)
[2023-08-28] MEDS: VISBIOME 1 CAP PO (20:00)
--- NOTE | 2023-08-28 21:57 | PTCARENOTE ---
[id number]:Handoff report received from off going RN. Dual RN stroke assessment completed. NIH = 0. Pt has a right arm brace but is able to move arm. Oriented x3. Forgetful at time to situation. Plan of care for the shift reviewed with the patient.
The patient is irritated at having to wear arm sling/brace. Pt verbalized frustration stating that 'it's killing me. They told me that I'll only have it for a few days. It's strangling me to .' The pt has his arm out of the sling. Explained to
the patient reasoning for brace in order to promote healing from rotator cuff repair. Calming measures utilized. The patient is Afib on the monitor with HR fluctuating between 55-60. Weak but palpable pulses to b/l DPs. +2 edema to left lower
extremity. Clear breath sounds on room air. +BS. Condom catheter is in place and draining yellow urine. Night care provided. Linens changed. Turns and repositioning continued.
[id number]: Pt's daughter, Belen updated via telephone. Belen verbalized concerns regarding her father's diagnoses and discharge plan. Per the daughter, the patient was complaining that he can't think straight, forgetful, and c/o having severe
headaches post surgery. Pt's daughter states that the patient was complaining for a few weeks prior to his fall and wanted to know if head bleed is related to fall or pt's medications. Explained to the daughter the pt's plan of care for 3/2 and to
contact providers for updates on MRI. The daughter would prefer for the patient to not be discharged home, but to a rehab center.
[2023-08-28] MEDS: BYSTOLIC 5 MG PO (22:06)
[2023-08-28] MEDS: APRESOLINE PO (22:07)
[2023-08-28] MEDS: XANAX 0.25 MG PO (23:53)
[2023-08-28 23:57] LABS: Glucose - Point of Care 112 mg/dl (70-99)
[2023-08-29] VITALS (29 sets, daily range): BP systolic 93–154; BP diastolic 36–79; PULSE 66–69; BMI 25.9
--- NOTE | 2023-08-29 00:19 | PTCARENOTE ---
[id number]: Patient is attempting to get OOB and wanting to 'get the hell out of this longterm.' The patient is angry and yelling at staff. Pt verbalized wanting to sign out AMA as the staff is holding him hostage. Patient is oriented x3, confused to
reasoning for hospitalization. Explained to the patient that he had a fall and is being monitored for a head bleed. The patient disagrees and stated that he did not fall nor have a head bleed. Pt continued yelling at staff to let him leave.
Continued to explain with the patient that his physicians and his daughter, Belen, would like him to stay to be monitored for changes. The patient then verbalized his dislike for his right arm immobilizer and how this RN is holding him hostage and
won't let him leave the hospital. Calming measures utilized without success. PCT at the bedside. Asked the patient if he'd like to speak to his daughter to provide assurance as for hospitalization. Pt's daughter called and updated on the patient's
concerns and frustration. Pt spoke to his daughter and told this RN that he did not believe her that he fell. Continued providing support and encouraged the patient to verbalize concerns to his care team in the morning as well. Pt offered PRN Xanax.
Repositioned the patient. Bed alarm in use. Call romero is within reach.
[2023-08-29 04:05] LABS: Hematocrit 36.8 % (39.0-52.0); Hemoglobin 12.4 g/dL (13.0-18.0); Mean Corp Hgb Conc. 33.7 g/dL (33.0-37.0); Mean Corpuscular Hgb 29.9 pg (27.0-31.0); Mean Corpuscular Volume 88.7 fL (80.0-94.0); Mean Platelet Volume 11.2 fL (7.4-10.4); Platelet Count 132 10^3/uL (130-400); Red Blood Cell Count 4.15 10^6/uL (4.70-6.10); Red Cell Dist. Width 14.6 % (11.5-14.5); White Blood Cell Count 5.1 10^3/uL (4.8-10.8)
[2023-08-29 04:19] LABS: ALT (SGPT) 48 U/L (0-50); AST (SGOT) 51 U/L (17-59); Alkaline Phosphatase 236 U/L (38-126); Blood Urea Nitrogen 24 mg/dl (9-20); Calcium 9.6 mg/dl (8.4-10.2); Carbon Dioxide 27 mmol/L (22-30); Chloride 104 mmol/L (98-107); Direct Bilirubin 0.3 mg/dl (0.0-0.4); Estimated Creatinine Clearance 72 ml/min; Glucose 100 mg/dl (70-99); HDL Cholesterol 46 mg/dl; LDL Cholesterol, Calculated 37 mg/dl; Magnesium 2.2 mg/dl (1.6-2.3); Phosphorus 3.7 mg/dl (2.5-4.5); Sodium 136 mmol/L (135-145); Total Bilirubin 1.9 mg/dl (0.2-1.3); Total Cholesterol 93 mg/dl (50-199); Total Protein 6.4 g/dl (6.3-8.2); Triglyceride 50 mg/dl (10-149); Very Low Density Lipoprotein 10 mg/dl (0-30); eGFR > 60.00
--- NOTE | 2023-08-29 04:58 | PTCARENOTE ---
Patient reassessed. AAOx3. NIH 0. HARGROVE x 4 with right arm difficulty due to sling and restriction from repair. The patient is Afib on the monitor with HR fluctuating between 38-55 and occasionally in the 60s-70s. Some pauses when the patient falls
asleep. Condom catheter is intact. Patient turns and repositions himself. All needs are met at this time. no further changes. Safety measures maintained.
--- NOTE | 2023-08-29 07:49 | W.PN.HOSP.TC ---
Today's Communication/Plan
-
stable for telemetry
Assessment / Plan
Assessment / Plan
HPI: 82-year-old male with a past medical history of atrial fibrillation on Eliquis, recent rotator cuff repair on 08/11/[address] Sol, hypertension, and coronary artery disease presented status post fall secondary to dizziness.� Patient was
found to have small intracranial hemorrhage in the posterior horn of the lateral ventricles bilaterally, left greater than right.
#Acute intracerebral hemorrhage exacerbated by Eliquis use
#Essential hypertension
Appreciate neurosurgery input, no surgical intervention recommended
Appreciate neurology input, MRI 08/28 shows stable hemorrhage
Continue to maintain blood pressure less than 140 systolic
Losartan has been increased to 50 mg twice a day, hydralazine ordered 25 mg 3 times a day
Continue as needed IV labetalol
Stable for telemetry
#Permanent atrial fibrillation
Neurology recommends starting aspirin 81 mg on 09/03, and then resuming Eliquis on 09/24-4 weeks after ICH was found
Neurology recommends outpatient follow-up cardiology for Watchman device
#Acute encephalopathy
Unclear source
Family reports patient has been confused since his orthopedic surgery on 08/11/2023
Urine analysis not convincing for infection, continue to monitor mental status off of any sedating medications
#CAD with stents
Continue statin, hold blood thinners secondary to ICH
#Recent right rotator cuff repair on 08/11/2023
Follow-up with Dr. Sol outpatient
#Anxiety
Continue Xanax
#Hyperlipidemia
Continue statin
#BPH
Continue finasteride
#Gastroesophageal reflux disease
Continue PPI
DVT prophylaxis�SCDs
Full code
Total time spent to see the patient on the floor, examine the patient, review data and lab results, discuss treatment plan with patient, nursing staff around 52 minutes.
Physical Exam
General: Frail, elderly, no acute distress
HEENT: Normocephalic, Atraumatic, EOMI, MMM
Respiratory: Clear to Auscultation bilaterally
Cardiac: Normal S1/S2, Regular Rate and Rhythm
GI: Soft, Nontender, Nondistended, Normal Bowel Sounds
Extremities: No Clubbing, Cyanosis, or Edema
Neuro: Nonfocal/Grossly Intact
Musculoskeletal: Right shoulder in sling
Anticipated Discharge: > 48 hours
Subjective/Interval History
-
Date of Service: August 29, 2023
Patient continues to have a headache. No nausea, no vomiting.
Objective Data
-
Labs:
Laboratory Results
08/29/23
03:41
WBC 5.1
Hgb 12.4 L
Hct 36.8 L
Plt Count 132
Sodium 136
Potassium 5.0
Chloride 104
Carbon Dioxide 27
BUN 24 H
Creatinine 0.7
Glucose 100 H
Calcium 9.6
Total Bilirubin 1.9 H
AST 51
ALT 48
Alkaline Phosphatase 236 H
Vital Signs:
Vital Signs
Temp Pulse Resp BP Pulse Ox
97.4 F 53 18 115/47 98
08/29/23 07:34 08/29/23 06:00 08/29/23 06:00 08/29/23 06:00 08/29/23 06:00
I&O
08/28/23 08/29/23 08/30/23
06:59 06:59 06:59
Intake Total 1200 / 1200
Output Total 1200 / 1200
Balance 0 / 0
--- NOTE | 2023-08-29 08:20 | PTCARENOTE ---
Assumed care of pt at 0715 following shift report. NIHSS completed w/ outgoing RN. Pt confused to month/year but reorients easily. Following all commands. Denies any c/o pain, including headache. No distress noted. Physical assessment completed as
documented. No continuous IV's infusing. Pt's Rt UE remains in sling w/ steri strips noted to Rt shoulder from recent rotator cuff surgery. Condom catheter found to no longer be in place and pt's bedding wet w/ urine. Partial bath/jack care
completed and new #30 condom cath applied. Pt voiding clear emma urine. Pt's HOB at 45 degrees as ordered. Call bed w/in pt reach. Bed exit alarm in use. Safe environment maintained.
--- NOTE | 2023-08-29 08:25 | W.PN.INTV ---
Today's Communication / Plan
Recommendations
Maintain SBP<140mmHg
Up OOB as tolerated
PT/OT
Check GGT and if elevated then check RUQ US
Pt stable for downgrade out of ICU to telemetry. Parts Picker/pulmonary service will now sign off. Please reconsult if there are any additional questions/concerns, or if respiratory status deteriorates.
Assessment
-
Assessment: 82-year-old male with a PMHx of anxiety, hyperlipidemia, A-fib on Eliquis, PND on Flonase, hypertension, GERD and CAD who presents with confusion and dizziness with fall. Patient had a recent rotator cuff surgery about 2 weeks ago and
has been having increased periods of confusion since that time. He felt weak while walking in his living room and fell but denies loss of consciousness or head trauma. CT head performed in the ER shows intraventricular hemorrhage involving
bilateral lateral ventricles, specifically the posterior horns. No acute neurosurgical intervention required as per neurosurgery. PCC given as patient takes Eliquis at home. Patient transferred to ICU for admission and critical care services
consulted for additional management/recommendations. Patient has remained stable with no change and serial brain imaging including CT head and brain MRI, and he is now ready for downgrade out of ICU to telemetry.
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
history of melanoma, varicose veins, anxiety
Impression:
#Acute intra-ventricular hemorrhage involving bilateral lateral ventricles
#A-fib on Eliquis s/p PCC administration due to above
#Hyponatremia (mild)
#Anemia (baseline Hb 12-13 g/dL)
#Thrombocytopenia (baseline plt ~110-190)
#Elevated total bilirubin
#CAD
Plan:
- Keep SBP<140mmHg
- Elevate HOB>30-45�
- Avoid all anti-platelet/anti-coagulants until clear to resume as per neurology/neurosurgery
- Considering INR is 1.54, I will administer 5mg IV vitamin K
- Neurochecks q4hr
- Neurology recs appreciated
- Stat CT head for any sudden change in mentation or change in neurochecks
- Trend T. bili and ALP --> check GGT and if elevated then check RUQ US to rule out biliary/GB pathology
- PT/OT
- Maintain MAP>65
- Replete K>3.5, Mg>1.8
- DVT ppx
Dispo: Pt stable for downgrade out of ICU to telemetry. Parts Picker/pulmonary service will now sign off. Thank you for allowing me to be involved in the care of this patient. Please reconsult if there are any additional questions/concerns, or if
respiratory status deteriorates.
Data:
Brain MRI 08-29-2023:
1. Small amount of acute intraventricular hemorrhage in the bilateral lateral ventricles.
2. Chronic senescent changes.
3. Scattered foci of chronic microhemorrhages most suggestive of cerebral amyloid angiopathy.
CT Head 08-28-2023 (6:26PM):
There is acute intraventricular hemorrhage bilaterally, layering in the posterior dependent portion of the lateral ventricles. Stable appearance from earlier examination today.
No other focal area of acute intracranial hemorrhage is identified.
CT head 08-28-2023 (1104AM):
Small volume acute hemorrhage layering in the posterior horn of the lateral ventricles bilaterally, left slightly greater than right.
Findings compatible with diffuse cortical atrophy with nonspecific white matter changes as described above.
Subjective Dataa
Subjective Data
Date of Service:
Date of Service: August 29, 2023
Chief Complaint: Parts Picker Follow Up
Subjective:
Patient seen and evaluated today at bedside. He denies weakness, numbness or tingling in any extremity. BP 124/69. Denies headache currently. Brain MRI done shows small amount of acute IVH and bilateral lateral ventricles with no significant
change compared to prior CT head. Patient denies chest pain, shortness of breath, fevers or chills.
Review of Systems
General: Other (12 point ROS performed and is negative unless mentioned above.)
Objective Data
Data Reviewed
Vital Signs / I&O / Oxygen:
Vital Signs
Temp Pulse Resp BP Pulse Ox
97.4 F 54 15 147/60 100
08/29/23 07:34 08/29/23 09:03 08/29/23 08:00 08/29/23 09:03 08/29/23 08:00
Intake and Output
08/28/23 08/29/23 08/30/23
06:59 06:59 06:59
Intake Total 1200 / 1200
Output Total 1200 / 1200
Balance 0 / 0
SaO2 100
Physical Exam
General: Comfortable
HEENT: Normocephalic and Anicteric
Cardiovascular: S1-S2 and Peripheral Edema (Negative)
Respiratory: Clear, Wheeze (Negative), Crackles (Negative) and Non-Labored Respirations
GI: Soft, Non Distended and Non Tender
Neurology: AO x 3
Skin: Warm, Dry and Other (Varicose veins seen in bilateral lower extremities)
Labs/Micro/Reports
Lab Data
08/29/23 03:41
08/29/23 03:41
Laboratory Results
08/28/23
11:22
PT 18.3 H
INR 1.54
APTT 39.5 H
--- NOTE | 2023-08-29 08:37 | W.PN.NEURO.1 ---
Today's Communication / Plan
-
-Pursuing brain MRI this morning, can cancel the planned CT head in leiu of the MRI study
-Goal normonatremia and head of bed 30 degrees
-Blood pressure goal less than 140, monitor for bradycardia
-If MRI brain with stable blood products will be acceptable to move out of ICU and acceptable start heparin DVT prophylaxis after [address] head showing hemorhrage
-Continue neurologic checks and NIH scales
-Plan for starting on aspirin 81 mg daily on 09/03 without need for repeat brain imaging unless there is clinical change in neurologic status
-Tentatively plan for stopping aspirin and restarting Apixaban09/24, 4 weeks after ICH was found
-With a previous ICH on coumadin and now an IVH on Eliquis, recommend outpatient cardiology evaluation to evaluate candidacy for watchmen device given risks of anticoagulation
Total ICU time = 45 minutes
Will follow
Neuro Assessment/Plan
Assessment
82 year old man with history of atrial fibrillation, previous ICH when on coumadin, hyperlipidemia, hypertension, peripheral neuropathy presenting because of confusion noted by friend since his recent right shoulder surgery, there was suspicion of
accidental extra doses of medications including Apixaban as bilateral intraventricular hemorrhage seen on CT head, no obvious head trauma. Had reversal of Apixaban with Kcentra in ED.
Stable since admission with no neurologic deterioration
Stable repeated CT head non contrast
Previous MRA of head with no noted vascular abnormalities, no AVM or aneurysms seen
Bluford most likely attributable to presence of chronic anticoagulation, possibly extra doses of Apixaban but difficult to confirm this
Not a typical picture for a hypertensive brain hemorrhage
Subjective/Objective
Subjective Data
Date of Service: August 29, 2023
No acute events overnight, some confusion with orientation and recent events, denies headache, no vomiting, had some bradycardia noted
Objective Data
Vital Signs
Temp Pulse Resp BP Pulse Ox
97.4 F 50 15 141/47 100
08/29/23 07:34 08/29/23 08:00 08/29/23 08:00 08/29/23 08:00 08/29/23 08:00
Lab Results
08/29/23 03:41
08/29/23 03:41
PT 18.3 Sec (11.4-14.6) H 08/28/23 11:22
INR 1.54 08/28/23 11:22
APTT 39.5 Sec (23.4-35.0) H 08/28/23 11:22
Sodium 136 mmol/L (135-145) 08/29/23 03:41
Potassium 5.0 mmol/L (3.5-5.1) 08/29/23 03:41
BUN 24 mg/dl (9-20) H 08/29/23 03:41
Glucose 100 mg/dl (70-99) H 08/29/23 03:41
Calcium 9.6 mg/dl (8.4-10.2) 08/29/23 03:41
Phosphorus 3.7 mg/dl (2.5-4.5) 08/29/23 03:41
LDL Cholesterol, Calc 37 mg/dl 08/29/23 03:41
Patient Allergies
amlodipine Allergy (Verified 08/28/23 08:29)
Swelling
diltiazem Allergy (Verified 08/28/23 08:29)
edema
montelukast sodium [From Singulair] Allergy (Verified 08/28/23 08:29)
Rash
nifedipine [Nifedipine] Allergy (Verified 08/28/23 08:29)
edma
ramipril [From Altace] Allergy (Verified 08/28/23 08:29)
cough
valsartan [From Diovan] Allergy (Verified 08/28/23 08:29)
COUGH
FERNANDO Inhibitors [Fernando Inhibitors] Adverse Reaction (Verified 08/28/23 08:29)
cough
oxycodone HCl [From Percocet] Adverse Reaction (Verified 08/28/23 08:29)
stomach ache
spironolactone Adverse Reaction (Verified 08/28/23 08:29)
tenderness of breast
tamsulosin Adverse Reaction (Verified 08/28/23 08:29)
lightheaded
Review of Systems
-
History Source: Patient
All other systems: Reviewed and negative
Constitutional: No Symptoms
EENT: No Symptoms Reported
Respiratory: No Symptoms
Cardiac: No Symptoms
Abdomen/GI: No Symptoms
Genitourinary: No Symptoms
Musculoskeletal: No Symptoms
Skin: No Symptoms
Neuro: See existing Neuro Note; Negative Headache
Endocrine: No Symptoms
Hematologic / Lymphatic: No Symptoms
Allergy / Immunology: No Symptoms
Physical Exam
-
General: No Apparent Distress and Comfortable
Eyes: No Ptosis
HEENT: Normocephalic
Neck: No Bruits Bilaterally
Respiratory: Clear to Auscultation
Cardiac: Regular Rhythm and No Murmur
GI: Normal Bowel Sounds
Skin: Unremarkable
Extremities: No Clubbing
Psych: Confused; Negative Agitated or Intact Judgement/Insight
Extended Neurological Exam
Attention Span & Concentration: Awake, Alert, Interactive and Other (Awake and alert, oriented to person, month, year, president and previous president, difficulty with more complex tasks cannot recite months of the year backwards)
Memory: Reduced
Tremor: Hand Tremor Absent
Involuntary Movement: None
Speech: Negative Expressive Aphasia, Receptive Aphasia or Dysarthric
Cranial Nerve II: Left Eye: Pupillary Reactivity Unremarkable and Pupillary Size Unremarkable
Cranial Nerve II: Right Eye: Pupillary Reactivity Unremarkable and Pupillary Size Unremarkable
Cranial Nerves III, IV, : Extraocular Movement: Extraocular Movement Full in all Directions
Cranial Nerve VII: Facial Symmetry: Normal Facial Symmetry
Muscle Strength, Overall: Other (Left arm 5/5, legs 5/5 hip flexion bilaterally, right arm limited due to shoulder sling and surgery, normal police justice strength on right hand)
Data Reviewed
-
CT Head: Report Reviewed and Image Reviewed
MRI Head: Ordered and Pending
MRA Head: Report Reviewed and Image Reviewed
MRA Neck: Report Reviewed and Image Reviewed
Labs: Report Reviewed
[2023-08-29] MEDS: LASIX 20 MG PO (08:51)
[2023-08-29] MEDS: TYLENOL 1000 MG PO ×3 (08:51→22:04)
[2023-08-29] MEDS: COZAAR 50 MG PO (08:52)
[2023-08-29] MEDS: VISBIOME 1 CAP PO ×3 (08:52→21:33)
[2023-08-29] MEDS: PROTONIX 40 MG PO (08:52)
[2023-08-29] MEDS: LIPITOR 80 MG PO (08:52)
[2023-08-29] MEDS: PROSCAR 5 MG PO (08:52)
[2023-08-29] MEDS: VITAMIN D3 (cholecalciferol) 50 MCG PO (08:52)
[2023-08-29] MEDS: APRESOLINE 25 MG PO (09:03)
--- NOTE | 2023-08-29 11:57 | PTCARENOTE ---
Pt to MRI at 1030 and returned to room at 1140. Pt continued to be monitored by this RN during transport and test. Pt's conversation appropriate and pt denies any c/o pain when questioned. Pt fully oriented to time/date at this time. Pt's friend
'Shahnaz' in room to visit. Phone call received from pt's daughter and JESSICAJay Sarah'- updated on pt's present condition, plan of care and all questions answered. Pt resting quietly in bed at present time, eating breakfast. No changes from previous
physical assessment findings.
--- NOTE | 2023-08-29 13:12 | CON.NS ---
Consultation
-
Date/Time Consultation Performed: 08/29/2023, 13:12
Performing Provider: Vadim
Chief Complaint
History of Present Illness
This is an 82-year-old gentleman who presented with dizziness, and headache with confusion and a fall on a.m. of 08/28/2023. He has a past medical history of atrial fibrillation, on Eliquis. He denies hitting his head. He has a recent history of
undergoing rotator cuff surgery approximately 2 weeks ago. It is reported that the patient may have taken additional doses of medications on the night prior to presentation. Given his fall, on Eliquis, he had a noncontrast head CT performed, which
demonstrated ventricular hemorrhage within the posterior horns of the bilateral ventricles. The patient received prothrombin complex for Eliquis reversal. He was admitted to the ICU for systolic blood pressure control, and neurochecks.
Review of Systems
-
A 10 point review of systems was performed including constitutional, ENT, cardiovascular, respiratory, GI, , hematologic, endocrinologic, neurologic, musculoskeletal, and was negative, except for as stated in HPI.
Medication and Allergies
Home Medications
Home Medications
Medication Instructions Recorded
atorvastatin 80 mg tablet 80 mg PO DAILY High cholesterol 10/30/17
apixaban 5 mg tablet (Eliquis) 5 mg PO BID Blood clot 10/17/19
prevention/tx
alprazolam 0.25 mg tablet 0.25 mg PO HSPRN PRN anxiety 08/07/20
losartan 50 mg tablet 50 mg PO DAILY Blood pressure 08/07/20
Lactobacillus acidophilus 1 cap PO BID Gastrointestinal Issue 08/07/23
cholecalciferol (vitamin D3) 50 50 mcg PO DAILY Supplement 08/07/23
mcg (2,000 unit) tablet (Vitamin
D3)
finasteride 5 mg tablet 5 mg PO DAILY prostate issues 08/07/23
furosemide 20 mg tablet 20 mg PO DAILY Fluid 08/07/23
Retention/Swelling
magnesium 200 mg tablet 200 mg PO DAILY Supplement 08/07/23
nebivolol 5 mg tablet (Bystolic) 5 mg PO HS Blood Pressure 08/07/23
omeprazole 40 mg capsule,delayed 40 mg PO DAILY Gastrointestinal 08/07/23
release Issue
rimegepant 75 mg disintegrating 75 mg PO ONCE PRN Headaches 08/07/23
tablet (Nurtec ODT)
vit C 250 mg-vit E 90 mg-zinc 40 1 tab PO BID Supplement 08/07/23
mg-copper 1 [id number]
capsule (PreserVision AREDS-2)
Maalox Liquid 1 dose PO DAILYPRN PRN stomach 08/28/23
discomfort
ascorbic acid (vitamin C) 1,000 mg 1,000 mg PO DAILY Supplement 08/28/23
tablet (Vitamin C)
fluticasone propionate 50 2 spray intranasal DAILY PRN 08/28/23
mcg/actuation nasal congestion
spray,suspension
lidocaine 5 % topical patch 1 patch topical DAILY PRN apply to 08/28/23
back (L4-L5)
potassium chloride 10 mEq 10 meq PO DAILY Electrolyte 08/28/23
tablet,extended release (Klor-Con) Repletion
zinc 50 mg tablet 50 mg PO DAILY Supplement 08/28/23
Allergies
Allergies
Allergy/AdvReac Type Severity Reaction Status Date / Time
amlodipine Allergy Swelling Verified 08/28/23 08:29
diltiazem Allergy edema Verified 08/28/23 08:29
montelukast sodium Allergy Rash Verified 08/28/23 08:29
[From Singulair]
nifedipine [Nifedipine] Allergy edma Verified 08/28/23 08:29
ramipril [From Altace] Allergy cough Verified 08/28/23 08:29
valsartan [From Diovan] Allergy COUGH Verified 08/28/23 08:29
FERNANDO Inhibitors AdvReac cough Verified 08/28/23 08:29
[Fernando Inhibitors]
oxycodone HCl [From Percocet] AdvReac stomach Verified 08/28/23 08:29
ache
spironolactone AdvReac tenderness Verified 08/28/23 08:29
of breast
tamsulosin AdvReac lightheaded Verified 08/28/23 08:29
Physical Exam
-
Exam:
Awake, alert, conversant
Pupils are equal and reactive
Extraocular movements are full without nystagmus
Face is symmetric
Tongue is midline
5/5 strength in all extremities, except for right upper extremity, due to casting
Sensation intact in all dermatomal
Gait not tested
Head is normocephalic atraumatic
Neck is supple
Breathing nonlabored
Cardiac, irregular pulse
Abdomen is soft, nondistended
Extremities are warm
No evidence of edema
PROCEDURE: CT Head W/o Iv Contrast
CLINICAL INDICATION: follow up for intraventricular hemmorhage
TECHNIQUE: Unenhanced computerized tomography of the head was performed. Automated dose reduction technique was employed.
COMPARISON: CT of the head from earlier this same date, August 28, 2023 at 1055 hours.
FINDINGS: There is hemorrhage layering dependently in the posterior aspect of both lateral ventricles, forming a fluid fluid level. This appears unchanged from earlier examination.
No hemorrhage is seen within the cervical or fourth ventricles by CT. No other focal area of subarachnoid blood is identified.
No intraparenchymal hematoma is identified.
There is moderate to severe ventricular dilation, unchanged from earlier examination, slightly increased compared to CT of the abdomen January 04, 2022.
There is no mass effect with no midline shift.
Mild to moderate periventricular leukomalacia, which appears stable.
Bilateral globus pallidus calcification is present, which is physiologic
Mild patchy mucosal thickening of the ethmoid sinuses. The rest of the visualized paranasal sinuses appear clear. The mastoid air cells appear clear. Findings suggesting previous bilateral endoscopic sinus surgery.
IMPRESSION:
There is acute intraventricular hemorrhage bilaterally, layering in the posterior dependent portion of the lateral ventricles. Stable appearance from earlier examination today.
No other focal area of acute intracranial hemorrhage is identified.
Electronically signed by Adiel Rothman MD 08/28/2023 6:26 PM
Dictated By: Adiel Rothman MD.
Dictated Date & Time: 08/28/231818
Exams:� MR Brain Without Contrast
PROCEDURE: MR Brain Without Contrast
CLINICAL INDICATION: Intraventricular hemorrhage.
TECHNIQUE: An MRI examination of the brain was performed without intravenous contrast on a 1.5 Demetra magnet. 3 plane T1, axial diffusion, axial T2 gradient echo, axial FLAIR, axial T2, and coronal T2-weighted imaging sequences were obtained.
COMPARISON: Head CT 08/28/2023. MRA [facility] 03/23/2023.
FINDINGS:
Small amount of layering acute blood products in the dependent portions of the bilateral lateral ventricles, as seen on the prior head CT.
Moderate age-related parenchymal atrophy with resultant ventriculomegaly. T2/FLAIR hyperintense signal in the white matter of the bilateral cerebral hemispheres, most compatible with the changes of mild to moderate chronic microangiopathic ischemia.
No mass effect or midline shift. No abnormal signal intensity on diffusion-weighted images. Scattered foci of susceptibility in the bilateral cerebral and cerebellar hemispheres most compatible with chronic microhemorrhages.
The vascular flow voids at the skull base are unremarkable, as far as visualized.
Minor mucosal thickening of the bilateral ethmoid sinuses. The mastoid air cells are clear. Bilateral ocular lens implants.
IMPRESSION:
1. Small amount of acute intraventricular hemorrhage in the bilateral lateral ventricles.
2. Chronic senescent changes.
3. Scattered foci of chronic microhemorrhages most suggestive of cerebral amyloid angiopathy.
Electronically signed by Valeria Paul 08/29/2023 11:37 AM
I personally reviewed the imaging above, and agree with read. No obvious evidence of evolving hydrocephalus seen.
Problems
-
Problem Status Onset Code
Acute intracerebral hemorrhage I61.9
Assessment / Plan
-
82-year-old gentleman who presents 2 weeks after rotator cuff repair, on Eliquis for atrial fibrillation, with confusion, headache, and dizziness. Imaging demonstrated bilateral intraventricular blood layering within the posterior aspect of the
ventricles. No obvious evidence of hydrocephalus.
At present time, no neurosurgical operative intervention is recommended/indicated.
Would recommend holding Eliquis for 1 week, and then can resume, as long as neurological examination remained stable.
Okay to initiate chemical DVT prophylaxis from neurosurgical standpoint.
Agree with neurology recommendations regarding initiating aspirin 1 week after diagnosis of hemorrhage.
Agree with neurology assessment regarding cardiology input regarding candidacy for Watchman device.
No further neurosurgical recommendations/follow-up needed.
Please call with questions.
[2023-08-29 14:05] LABS: GGTP 245 U/L (15-73)
--- NOTE | 2023-08-29 14:33 | PTCARENOTE ---
Pt sitting OOB in chair since visit from PT/OT. Chair exit alarm in use. Ambulated to BR w/ assistance and use of cane. Denies dizziness or headache. Friend continues to visit. No changes from previous assessment findings. Call nick w/in pt reach
and safe environment maintained.
[2023-08-29] MEDS: APRESOLINE PO ×2 (17:12→22:03)
[2023-08-29] MEDS: COZAAR PO (21:08)
[2023-08-29] MEDS: XANAX 0.25 MG PO (22:09)
--- NOTE | 2023-08-29 23:30 | PTCARENOTE ---
: Handoff report received from off going RN. The patient is AAOx3 and able to make his needs known. Denies pain. Plan of care for the shift reviewed with the patient. Pt's Afib on the monitor with HR 60. +2 edema to b/l lower extremities.
Weak but palpable pulses. Pt's clear/diminished at the bases. SpO2 at 95% on room air. Hypoactive BS. The patient had a small bowel movement via commode. Pt encouraged to utilize call romero prior to getting OOB. The patient voiced his concerns and
not wanting to 'mess the bed up.' Risk of fall reviewed with the patient. Pt verbalized understanding. Assisted the patient back to bed. #30 condom catheter placed. SCDs in use. Safety measures maintained.
[2023-08-30] VITALS (10 sets, daily range): BP systolic 106–154; BP diastolic 44–70; BMI 24.8
--- NOTE | 2023-08-30 01:03 | PTCARENOTE ---
Received patient in bed, following commands, moves all extremities, disoriented to time. Immobilizer on right arm for recent rotator cuff repair. Afib, 60s. BP stable, 100s/70s. Palpable radial pulses bilaterally and weak palpable pedal pulses
bilaterally. +1 edema on bilateral extremities. SCDs on. 95% on room air, lung sounds clear, diminished at the bases. Abdomen round, soft, bm earlier today. #30 condom cath intact, no urine output yet this shift. PIV patent, WNL. Repositioned.
Hourly rounding and patient safety checks ongoing.
--- NOTE | 2023-08-30 03:56 | PTCARENOTE ---
cannot verify vitals prior to 2300, did not assume care if patient yet.
[2023-08-30 04:03] LABS: Hematocrit 32.5 % (39.0-52.0); Hemoglobin 11.1 g/dL (13.0-18.0); Mean Corp Hgb Conc. 34.2 g/dL (33.0-37.0); Mean Corpuscular Volume 87.8 fL (80.0-94.0); Mean Platelet Volume 11.3 fL (7.4-10.4); Platelet Count 134 10^3/uL (130-400); Red Cell Dist. Width 14.6 % (11.5-14.5); White Blood Cell Count 4.6 10^3/uL (4.8-10.8)
[2023-08-30 04:04] LABS: INR 1.37; PT 16.7 Sec (11.4-14.6)
[2023-08-30 04:05] LABS: APTT 37.9 Sec (23.4-35.0)
[2023-08-30 04:14] LABS: Blood Urea Nitrogen 27 mg/dl (9-20); Calcium 8.9 mg/dl (8.4-10.2); Carbon Dioxide 23 mmol/L (22-30); Chloride 107 mmol/L (98-107); Estimated Creatinine Clearance 72 ml/min; Glucose 99 mg/dl (70-99); Phosphorus 3.2 mg/dl (2.5-4.5); Potassium 3.9 mmol/L (3.5-5.1); Sodium 137 mmol/L (135-145); eGFR > 60.00
[2023-08-30] MEDS: VISBIOME 1 CAP PO ×2 (07:28→20:20)
[2023-08-30] MEDS: TYLENOL 1000 MG PO ×3 (07:28→23:09)
[2023-08-30] MEDS: PROTONIX 40 MG PO (07:29)
[2023-08-30] MEDS: LASIX 20 MG PO (07:29)
[2023-08-30] MEDS: LIPITOR 80 MG PO (07:29)
[2023-08-30] MEDS: APRESOLINE 25 MG PO ×3 (07:29→23:09)
[2023-08-30] MEDS: PROSCAR 5 MG PO (07:30)
[2023-08-30] MEDS: VITAMIN D3 (cholecalciferol) 50 MCG PO (07:30)
[2023-08-30] MEDS: COZAAR 50 MG PO ×2 (07:30→20:20)
--- NOTE | 2023-08-30 08:12 | PTCARENOTE ---
report received, assessments per work list. patient initially uncooperative and irritable. c/o headache and lower back pain. scheduled tylenol administered. call romero in reach
--- NOTE | 2023-08-30 09:36 | W.PN.NEURO.1 ---
Today's Communication / Plan
-
-Goal normonatremia and head of bed 30 degrees
-Blood pressure goal less than 140, monitor for bradycardia
-Plan for starting on aspirin 81 mg daily on 09/03 without need for repeat brain imaging unless there is clinical change in neurologic status
-Tentatively plan for stopping aspirin and restarting Apixaban 09/24, 4 weeks after ICH was found
-History of a previous ICH and now an IVH, brain MRI supportive of cerebral amyloid angiopathy, recommend outpatient cardiology evaluation for watchmen device candidacy
Will continue to follow
Neuro Assessment/Plan
Assessment
82 year old man with history of atrial fibrillation, previous ICH when on coumadin, hyperlipidemia, hypertension, peripheral neuropathy presenting because of confusion noted by friend since his recent right shoulder surgery, there was suspicion of
accidental extra doses of medications including Apixaban as bilateral intraventricular hemorrhage seen on CT head, no obvious head trauma. Had reversal of Apixaban with Kcentra in ED.
Stable since admission with no neurologic deterioration
Stable repeated CT head non contrast
Previous MRA of head with no noted vascular abnormalities, no AVM or aneurysms seen
Etiology most likely a combination of Apixaban anticoagulation in addition to cerebral amyloid angiopathy
Not a typical picture for a hypertensive brain hemorrhage
MRI brain shows mostly cortical based chronic microhemorrhages
Patient likely does have cerebral amyloid angiopathy
Subjective/Objective
Subjective Data
Date of Service: August 30, 2023
No acute events overnight, denies headache
Objective Data
Vital Signs
Temp Pulse Resp BP Pulse Ox
97.7 F 64 21 109/44 98
08/30/23 07:23 08/30/23 08:41 08/30/23 08:41 08/30/23 08:41 08/30/23 08:00
Lab Results
08/30/23 03:31
08/30/23 03:31
PT 16.7 Sec (11.4-14.6) H 08/30/23 03:31
INR 1.37 08/30/23 03:31
APTT 37.9 Sec (23.4-35.0) H 08/30/23 03:31
Sodium 137 mmol/L (135-145) 08/30/23 03:31
Potassium 3.9 mmol/L (3.5-5.1) 08/30/23 03:
BUN 27 mg/dl (9-20) H 08/30/23 03:31
Glucose 99 mg/dl (70-99) 08/30/23 03:31
Calcium 8.9 mg/dl (8.4-10.2) 08/30/23:
Phosphorus 3.2 mg/dl (2.5-4.5) 08/30/23 03:31
LDL Cholesterol, Calc 37 mg/dl 08/29/23 03:41
Patient Allergies
amlodipine Allergy (Verified 08/28/23 08:29)
Swelling
diltiazem Allergy (Verified 08/28/23 08:29)
edema
montelukast sodium [From Singulair] Allergy (Verified 08/28/23 08:29)
Rash
nifedipine [Nifedipine] Allergy (Verified 08/28/23 08:29)
edma
ramipril [From Altace] Allergy (Verified 08/28/23 08:29)
cough
valsartan [From Diovan] Allergy (Verified 08/28/23 08:29)
COUGH
FERNANDO Inhibitors [Fernando Inhibitors] Adverse Reaction (Verified 08/28/23 08:29)
cough
oxycodone HCl [From Percocet] Adverse Reaction (Verified 08/28/23 08:29)
stomach ache
spironolactone Adverse Reaction (Verified 08/28/23 08:29)
tenderness of breast
tamsulosin Adverse Reaction (Verified 08/28/23 08:29)
lightheaded
Review of Systems
-
History Source: Patient
All other systems: Reviewed and negative
Constitutional: No Symptoms
EENT: No Symptoms Reported
Respiratory: No Symptoms
Cardiac: No Symptoms
Abdomen/GI: No Symptoms
Genitourinary: No Symptoms
Musculoskeletal: No Symptoms
Skin: No Symptoms
Neuro: See existing Neuro Note
Endocrine: No Symptoms
Hematologic / Lymphatic: No Symptoms
Allergy / Immunology: No Symptoms
Physical Exam
-
General: Comfortable
Eyes: No Ptosis
HEENT: Normocephalic
Neck: No Bruits Bilaterally
Respiratory: Clear to Auscultation
Cardiac: Regular Rhythm
GI: Normal Bowel Sounds
Skin: Unremarkable
Extremities: No Clubbing
Psych: Confused; Negative Agitated
Extended Neurological Exam
Attention Span & Concentration: Awake, Alert, Interactive and Other (Mildly disoriented, wide wake, conversational, difficulty with complex commands like serial 7 subtraction cannot perform, or names months of year backwards)
Memory: Reduced
Tremor: Hand Tremor Absent
Involuntary Movement: None
Speech: Quality Unremarkable and Quantity Unremarkable; Negative Expressive Aphasia, Receptive Aphasia or Dysarthric
Cranial Nerve II: Left Eye: Pupillary Reactivity Unremarkable, Pupillary Size Unremarkable and Visual Hernandez Intact
Cranial Nerve II: Right Eye: Pupillary Reactivity Unremarkable, Pupillary Size Unremarkable and Visual Hernandez Intact
Cranial Nerves III, IV, : Extraocular Movement: Extraocular Movement Full in all Directions
Cranial Nerve VII: Facial Symmetry: Normal Facial Symmetry
Muscle Strength, Overall: Other (Left arm full strength, legs 4+/5 hip flexion and symmetric, good summons server strength in right hand, limited due to right shoulder sling and surgery)
Touch Sensation: Unremarkable and Withdrawal to Pain
Data Reviewed
-
CT Head: Report Reviewed and Image Reviewed
MRI Head: Report Reviewed and Image Reviewed
Labs: Report Reviewed
--- NOTE | 2023-08-30 09:46 | W.PN.HOSP.TC ---
Addendum entered and electronically signed by Eulogio Bailey MD 08/30/23 15:42:
Discussed with neurology, confusion could be from his intracranial hemorrhage.
Original Note:
Today's Communication/Plan
-
see bold
Assessment / Plan
Assessment / Plan
HPI: 82-year-old male with a past medical history of atrial fibrillation on Eliquis, recent rotator cuff repair on 08/11/[address] Sol, hypertension, and coronary artery disease presented status post fall secondary to dizziness.� Patient was
found to have small intracranial hemorrhage in the posterior horn of the lateral ventricles bilaterally, left greater than right.
#Acute intracerebral hemorrhage exacerbated by Eliquis use
#Essential hypertension
Appreciate neurosurgery input, no surgical intervention recommended
Appreciate neurology input, MRI 08/28 shows stable hemorrhage
Continue to maintain blood pressure less than 140 systolic
Losartan has been increased to 50 mg twice a day, hydralazine ordered 25 mg 3 times a day
Continue as needed IV labetalol
#Permanent atrial fibrillation
Neurology recommends starting aspirin 81 mg on 09/03, and then resuming Eliquis on 09/24-4 weeks after ICH was found
Neurology recommends outpatient follow-up w/ cardiology for Watchman device
#Acute encephalopathy
Unclear source
Family reports patient has been confused since his orthopedic surgery on 08/11/2023
Urine analysis not convincing for infection, continue to monitor mental status off of any sedating medications
#CAD with stents
Continue statin, hold blood thinners secondary to ICH
#Recent right rotator cuff repair on 08/11/2023
Follow-up with Dr. Sol outpatient
#Anxiety
Continue Xanax
#Hyperlipidemia
Continue statin
#BPH
Continue finasteride
#Gastroesophageal reflux disease
Continue PPI
DVT prophylaxis�SCDs
Full code
Updated daughter on phone 08/29
Physical Exam
General: Frail, elderly, no acute distress
HEENT: Normocephalic, Atraumatic, EOMI, MMM
Respiratory: Clear to Auscultation bilaterally
Cardiac: Normal S1/S2, Regular Rate and Rhythm
GI: Soft, Nontender, Nondistended, Normal Bowel Sounds
Extremities: No Clubbing, Cyanosis, or Edema
Neuro: Nonfocal/Grossly Intact
Musculoskeletal: Right shoulder in sling
Anticipated Discharge: 24 - 48 hours
Subjective/Interval History
-
Date of Service: August 30, 2023
Patient reports headache has resolved. No nausea, no vomiting. No chest pain, no shortness of breath.
Objective Data
-
Labs:
Laboratory Results
08/30/23
03:31
WBC 4.6 L
Hgb 11.1 L
Hct 32.5 L
Plt Count 134
PT 16.7 H
INR 1.37
APTT 37.9 H
Sodium 137
Potassium 3.9
Chloride 107
Carbon Dioxide 23
BUN 27 H
Creatinine 0.7
Glucose 99
Calcium 8.9
Vital Signs:
Vital Signs
Temp Pulse Resp BP Pulse Ox
97.7 F 64 21 109/44 98
08/30/23 07:23 08/30/23 08:41 08/30/23 08:41 08/30/23 08:41 08/30/23 08:00
I&O
08/29/23 08/30/23 08/31/23
06:59 06:59 06:59
Intake Total 1200 / 1200 720 / 720 240 / 240
Output Total 1200 / 1200 1300 / 1300
Balance 0 / 0 -580 / -580 240 / 240
--- NOTE | 2023-08-30 10:20 | PTCARENOTE ---
Addendum entered by Mara Vazquez RN 08/30/23 10:51:
transfer to [facility] without issue
Original Note:
report to [facility] RN
[2023-08-30] MEDS: XANAX 0.25 MG PO (23:09)
[2023-08-31 03:00] VITALS: BP 103/50
[2023-08-31 05:38] LABS: Hematocrit 33.5 % (39.0-52.0); Hemoglobin 11.4 g/dL (13.0-18.0); Mean Corpuscular Hgb 30.2 pg (27.0-31.0); Mean Corpuscular Volume 88.9 fL (80.0-94.0); Platelet Count 164 10^3/uL (130-400); Red Blood Cell Count 3.77 10^6/uL (4.70-6.10); Red Cell Dist. Width 14.8 % (11.5-14.5)
[2023-08-31 05:56] LABS: Blood Urea Nitrogen 25 mg/dl (9-20); Calcium 8.9 mg/dl (8.4-10.2); Carbon Dioxide 26 mmol/L (22-30); Chloride 107 mmol/L (98-107); Estimated Creatinine Clearance 56 ml/min; Glucose 94 mg/dl (70-99); Sodium 137 mmol/L (135-145); eGFR > 60.00
[2023-08-31 07:30] VITALS: BP 134/52
--- NOTE | 2023-08-31 08:27 | W.PN.NEURO.1 ---
Today's Communication / Plan
-
-Systolic blood pressure goal less than 140
-Plan for starting on aspirin 81 mg daily on 09/03 without need for repeat brain imaging unless there is clinical change in neurologic status
-Plan for stopping aspirin and restarting Apixaban 09/24, 4 weeks after ICH was found
-Recommend outpatient cardiology evaluation for watchmen device candidacy
Will sign off call with questions and concerns reconsult as needed
Neuro Assessment/Plan
Assessment
82 year old man with history of atrial fibrillation, previous ICH when on coumadin, hyperlipidemia, hypertension, peripheral neuropathy presenting because of confusion noted by friend since his recent right shoulder surgery, there was suspicion of
accidental extra doses of medications including Apixaban as bilateral intraventricular hemorrhage seen on CT head, no obvious head trauma. Had reversal of Apixaban with Kcentra in ED.
Stable since admission with no neurologic deterioration
Stable repeated CT head non contrast
Previous MRA of head with no noted vascular abnormalities, no AVM or aneurysms seen
Etiology most likely a combination of Apixaban anticoagulation in addition to cerebral amyloid angiopathy
Not a typical picture for a hypertensive brain hemorrhage
MRI brain shows mostly cortical based chronic microhemorrhages
Patient likely does have cerebral amyloid angiopathy based on MRI imaging showing mostly cortical based microbleeds and having one ICH and a separate instance of IVH
Subjective/Objective
Subjective Data
Date of Service: August 31, 2023
No acute events overnight, he had some confusion with switching hospital rooms, denies headache
Objective Data
Vital Signs
Temp Pulse Resp BP Pulse Ox
97.7 F 77 14 103/50 97
08/31/23 03:00 08/31/23 03:00 08/31/23 03:00 08/31/23 03:00 08/31/23 03:00
Lab Results
08/31/23 04:39
08/31/23 04:39
PT 16.7 Sec (11.4-14.6) H 08/30/23 03:31
INR 1.37 08/30/23 03:31
APTT 37.9 Sec (23.4-35.0) H 08/30/23 03:31
Sodium 137 mmol/L (135-145) 08/31/23 04:39
Potassium 4.0 mmol/L (3.5-5.1) 08/31/23 04:39
BUN 25 mg/dl (9-20) H 08/31/23 04:39
Glucose 94 mg/dl (70-99) 08/31/23 04:39
Calcium 8.9 mg/dl (8.4-10.2) 08/31/23 04:39
Phosphorus 3.2 mg/dl (2.5-4.5) 08/30/23 03:31
LDL Cholesterol, Calc 37 mg/dl 08/29/23 03:41
Patient Allergies
amlodipine Allergy (Verified 08/28/23 08:29)
Swelling
diltiazem Allergy (Verified 08/28/23 08:29)
edema
montelukast sodium [From Singulair] Allergy (Verified 08/28/23 08:29)
Rash
nifedipine [Nifedipine] Allergy (Verified 08/28/23 08:29)
edma
ramipril [From Altace] Allergy (Verified 08/28/23 08:29)
cough
valsartan [From Diovan] Allergy (Verified 08/28/23 08:29)
COUGH
FERNANDO Inhibitors [Fernando Inhibitors] Adverse Reaction (Verified 08/28/23 08:29)
cough
oxycodone HCl [From Percocet] Adverse Reaction (Verified 08/28/23 08:29)
stomach ache
spironolactone Adverse Reaction (Verified 08/28/23 08:29)
tenderness of breast
tamsulosin Adverse Reaction (Verified 08/28/23 08:29)
lightheaded
Review of Systems
-
History Source: Patient
All other systems: Reviewed and negative
Constitutional: No Symptoms
EENT: No Symptoms Reported
Respiratory: No Symptoms
Cardiac: No Symptoms
Abdomen/GI: No Symptoms
Genitourinary: No Symptoms
Musculoskeletal: No Symptoms
Skin: No Symptoms
Neuro: See existing Neuro Note
Endocrine: No Symptoms
Hematologic / Lymphatic: No Symptoms
Allergy / Immunology: No Symptoms
Physical Exam
-
General: No Apparent Distress
Eyes: No Ptosis
HEENT: Normocephalic
Neck: No Bruits Bilaterally
Respiratory: Clear to Auscultation
Cardiac: Regular Rhythm
GI: Normal Bowel Sounds
Skin: Unremarkable
Extremities: No Clubbing
Psych: Other ([facility] [employer] understands in hospital for brain bleed); Negative Agitated
Extended Neurological Exam
Attention Span & Concentration: Awake, Alert, Interactive and Other (Oriented to place, person, month, president, reasons for hospitalization, difficulty with more complicated cognitive tasks like serial 7 subtraction cannot do nor recite months of
year backwards, conversational wide awake)
Memory: Reduced
Tremor: Hand Tremor Absent
Involuntary Movement: None
Speech: Quality Unremarkable and Quantity Unremarkable; Negative Expressive Aphasia, Receptive Aphasia or Dysarthric
Cranial Nerve II: Left Eye: Pupillary Reactivity Unremarkable, Pupillary Size Unremarkable and Visual Hernandez Intact
Cranial Nerve II: Right Eye: Pupillary Reactivity Unremarkable, Pupillary Size Unremarkable and Visual Hernandez Intact
Cranial Nerves III, IV, : Extraocular Movement: Extraocular Movement Full in all Directions
Cranial Nerve VII: Facial Symmetry: Normal Facial Symmetry
Cranial Nerve XI: Shoulder Shrug: Unremarkable
Muscle Strength, Overall: Full Throughout
Muscle Bulk & Tone: Bulk Unremarkable
Pronator Drift: No Drift in Upper Extremities
Deep Tendon Reflexes: Trace Throughout
Touch Sensation: Unremarkable
Data Reviewed
-
CT Head: Report Reviewed and Image Reviewed
MRI Head: Report Reviewed and Image Reviewed
[2023-08-31] MEDS: TYLENOL 1000 MG PO ×3 (08:37→23:21)
[2023-08-31] MEDS: PROTONIX 40 MG PO (08:38)
[2023-08-31] MEDS: LASIX 20 MG PO (08:39)
[2023-08-31] MEDS: PROSCAR 5 MG PO (08:40)
[2023-08-31] MEDS: LIPITOR 80 MG PO (08:40)
[2023-08-31] MEDS: COZAAR 50 MG PO (08:41)
[2023-08-31] MEDS: VISBIOME 1 CAP PO ×2 (08:41→19:20)
[2023-08-31] MEDS: APRESOLINE 25 MG PO (08:41)
[2023-08-31] MEDS: VITAMIN D3 (cholecalciferol) 50 MCG PO (08:42)
[2023-08-31 11:05] VITALS: BP 116/52
--- NOTE | 2023-08-31 12:36 | CM ---
Addendum entered by Teresa Shrestha 08/31/23 12:51:
Patient was current with [facility] prior to admission.
Original Note:
band manager reviewed patient's chart and met with patient and patient lives alone in a one story home with one step to enter, patient is independent with adl's and used a cane with ambulation. Patient recently had shoulder surgery and RUE with
sling and NWB, now admitted with possible acute intracerebral Hemorrhage, piano case and bench assembler met with patient and spoke with patient's daughter, Belen by phone, possible rehab options were reviewed and patient may benefit from Acute rehab, options
reviewed with patient and daughter, Belen and she has selected [facility], referral sent to [facility] and PM&R consult requested.
Plan; Referral sent to [facility].
--- NOTE | 2023-08-31 12:47 | VNURNOTE ---
Patient is current with [facility] since 08/12 w/SN/OT, will monitor progress and plan at discharge.
[2023-08-31 15:35] VITALS: BP 108/45
[2023-08-31] MEDS: APRESOLINE PO ×2 (15:59→23:21)
--- NOTE | 2023-08-31 17:57 | W.PN.HOSP.TC ---
Addendum entered and electronically signed by Neno Hodge MD 09/01/23 14:16:
Add on to diagnosis list
Intracerebra hemorrhage
Multifactorial due to Cerebral Amyloid Angiopathy/ Eliquis use/ Fall
Original Note:
Today's Communication/Plan
-
PMR eval
dischrge planning for rehab
Assessment / Plan
Assessment / Plan
HPI: 82-year-old male with a past medical history of atrial fibrillation on Eliquis, recent rotator cuff repair on 08/11/[address] Sol, hypertension, and coronary artery disease presented status post fall secondary to dizziness.� Patient was
found to have small intracranial hemorrhage in the posterior horn of the lateral ventricles bilaterally, left greater than right.
#Acute intracerebral hemorrhage exacerbated by Eliquis use
#Essential hypertension
Appreciate neurosurgery input, no surgical intervention recommended
Appreciate neurology input, MRI 08/28 shows stable hemorrhage
Continue to maintain blood pressure less than 140 systolic
Losartan has been increased to 50 mg twice a day, hydralazine ordered 25 mg 3 times a day
Continue as needed IV labetalol
#Permanent atrial fibrillation
Neurology recommends starting aspirin 81 mg on 09/03, and then resuming Eliquis on 09/24-4 weeks after ICH was found
Neurology recommends outpatient follow-up w/ cardiology for Watchman device
#Acute encephalopathy
Unclear source
Family reports patient has been confused since his orthopedic surgery on 08/11/2023
Urine analysis not convincing for infection, continue to monitor mental status off of any sedating medications
#CAD with stents
Continue statin, hold blood thinners secondary to ICH
#Recent right rotator cuff repair on 08/11/2023
Follow-up with Dr. Sol outpatient
#Anxiety
Continue Xanax
#Hyperlipidemia
Continue statin
#BPH
Continue finasteride
#Gastroesophageal reflux disease
Continue PPI
DVT prophylaxis�SCDs
Full code
Anticipated Discharge: Within 24 hours
Subjective/Interval History
-
Date of Service: August 31, 2023
Resting comfortably in chair
some occipital headache, denies nausea/vomiting
no acute issues reported
Objective Data
-
Vital Signs:
Vital Signs
Temp Pulse Resp BP Pulse Ox
97.6 F 65 18 108/45 95
08/31/23 15:35 08/31/23 15:35 08/31/23 15:35 08/31/23 15:35 08/31/23 15:35
I&O
08/30/23 08/31/23 09/01/23
06:59 06:59 06:59
Intake Total 720 / 720 1290 / 1290
Output Total 1300 / 1300 600 / 600
Balance -580 / -580 690 / 690
Review of Systems
-
Respiratory: Reports No Symptoms
Cardiac: Reports No Symptoms
Abdomen/GI: Reports No Symptoms
Physical Exam
-
General: No Apparent Distress and Comfortable
HEENT: Negative Oxygen
Respiratory: Clear to Auscultation
Cardiac: Regular Rhythm and S1/S2; Negative Murmur or Rub
GI: Soft, Nontender and Nondistended
Musculoskeletal: No Edema
Neuro: Awake, Alert, Oriented, No Motor Deficits and Nonfocal/Grossly Intact
Psych: Calm
[2023-08-31] MEDS: COZAAR PO (19:20)
[2023-08-31 19:41] VITALS: BP 119/45
[2023-08-31 23:31] VITALS: BP 105/58
[2023-09-01 03:17] VITALS: BP 148/75
[2023-09-01 07:34] VITALS: BP 151/79
[2023-09-01 07:54] LABS: Hematocrit 36.7 % (39.0-52.0); Hemoglobin 12.3 g/dL (13.0-18.0); Mean Corp Hgb Conc. 33.5 g/dL (33.0-37.0); Mean Corpuscular Hgb 30.2 pg (27.0-31.0); Mean Corpuscular Volume 90.2 fL (80.0-94.0); Platelet Count 162 10^3/uL (130-400); Red Blood Cell Count 4.07 10^6/uL (4.70-6.10); Red Cell Dist. Width 14.6 % (11.5-14.5); White Blood Cell Count 5.5 10^3/uL (4.8-10.8)
[2023-09-01] MEDS: TYLENOL 1000 MG PO ×2 (07:59→15:00)
[2023-09-01] MEDS: LASIX 20 MG PO (08:00)
[2023-09-01] MEDS: APRESOLINE 25 MG PO ×2 (08:00→15:01)
[2023-09-01] MEDS: PROTONIX 40 MG PO (08:00)
[2023-09-01] MEDS: LIPITOR 80 MG PO (08:01)
[2023-09-01] MEDS: PROSCAR 5 MG PO (08:01)
[2023-09-01] MEDS: COZAAR 50 MG PO (08:01)
[2023-09-01] MEDS: VISBIOME 1 CAP PO (08:01)
[2023-09-01] MEDS: VITAMIN D3 (cholecalciferol) 50 MCG PO (08:01)
[2023-09-01 08:12] LABS: Blood Urea Nitrogen 24 mg/dl (9-20); Calcium 9.3 mg/dl (8.4-10.2); Carbon Dioxide 25 mmol/L (22-30); Chloride 106 mmol/L (98-107); Estimated Creatinine Clearance 72 ml/min; Glucose 90 mg/dl (70-99); Potassium 4.2 mmol/L (3.5-5.1); Sodium 136 mmol/L (135-145); eGFR > 60.00
[2023-09-01 08:19] VITALS: BP 145/67; PULSE 63; O2SAT 100
[2023-09-01 08:27] VITALS: BP 145/67; PULSE 70; O2SAT 100
--- NOTE | 2023-09-01 09:53 | CM ---
Addendum entered by JUAN PABLO Billingsley 09/01/23 16:02:
called Baldemar Glover with room # at [facility]
Addendum entered by JOSÉ ANTONIO BillingsleyW 09/01/23 12:18:
left VM for Ms. Reeves Xander to update plan to go to [facility] today after seen by [facility] physician.
Addendum entered by JUAN PABLO Billingsley 09/01/23 11:31:
[place] at [facility] states PA for PMR coming to see patient then he can be d/c to [facility]. [facility] to contact Dr. Sol for updated orders s/p shoulder surgery.
Original Note:
Spoke to [place], the [facility] liaison. There is bed today at [facility] site. Attending plans to discharge. [facility] reaching out the PMR Doctor for final approval. Cm met with patient reviewed plan and IMM signed.
--- NOTE | 2023-09-01 10:10 | PTOTSP ---
SPEECH THERAPY SPEECH/LANGUAGE/COGNITIVE COMMUNICATION EVALUATION:
Patient presents with mild cognitive communication, expressive language, and receptive language impairments characterized by: Reduced STM, Reduced Attention during structured tasks and conversation, Delayed Processing Speed, Reduced Safety
awareness, Reduced Judgement, Reduced Sequencing abilities, Word finding impairments during structured tasks. Patient appeared unaware of deficits during evaluation. Recommend continue Speech Therapy services at the sub-acute level. Patient would
benefit from inpatient rehab services. Recommend continued Speech Therapy services at the acute care level to facilitate improvement in these areas. Discussed with RN and Dr. Hodge.
RECOMMEND:
1) Recommend continued Speech Therapy services at the acute care level
2) Recommend continue Speech Therapy services at the sub-acute level. Patient would benefit from inpatient rehab services
[2023-09-01] MEDS: TORADOL 15 MG IV (10:21)
--- NOTE | 2023-09-01 11:25 | CON.MD ---
Documented by User: Nahomi Edwards PA-C 09/01/23 14:35
Consultation - Medical
-
Referring Provider: Neno Hodge
Chief Complaint: CVA
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 Sol, hypertension, and coronary artery disease presented status post fall secondary to dizziness.� Patient was found to have small intracranial hemorrhage in the posterior horn of the lateral ventricles bilaterally, left greater than right.
There was suspicion of accidental extra doses of medications including Apixaban as bilateral intraventricular hemorrhage seen on CT head, no obvious head trauma.� Had reversal of Apixaban with Kcentra in ED. Neurosurgery did not recommend any
surgical intervention. MRI 08/28 shows stable hemorrhage.
MRI Brain: 08/29/2023
Small amount of acute intraventricular hemorrhage in the bilateral lateral ventricles.
2. Chronic senescent changes.
3. Scattered foci of chronic microhemorrhages most suggestive of cerebral amyloid angiopathy.
Head CT 08/28/23
Small volume acute hemorrhage layering in the posterior horn of the lateral ventricles bilaterally, left slightly greater than right.
Findings compatible with diffuse cortical atrophy with nonspecific white matter changes as described above.
Chest X-ray
No radiographic evidence of acute cardiopulmonary abnormality.
Past Medical History: atrial fibrillation on Eliquis, previous ICH when on Coumadin, hyperlipidemia, hypertension, peripheral neuropathy, GERD, Anxiety
Procedure History: right rotator cuff repair on 08/11/2023, CADs/p juju (LAD 1998)
Family History: Non-contributory, orphan
Social History:
Functional Level Premorbidly: independent pre-surgery with visiting [place] for few hours Assisted, cane, OT at home and health aide. Sleeps in recliner- since Rotator cuff surgery
Functional Level Currently: Supine to sit�min assist, sit to stand�min assist, ambulated 40 feet on single-point cane and min assist, slow gait, wide base with support, no overt loss of balance. Toilet transfer�min assist, grooming�set up,
toileting�mod assist, lower extremity dressing�mod assist
Tobacco: former smoker
Alcohol: Denies
Drug use: Denies
Lives with: Alone
24-hour assistance available:
Number of floors:1
# steps to enter: 1
# steps to second floor:
Potential First floor set up:yes
Driving: yes
Occupation: retired
�
Allergies:
Allergy/AdvReac Type Severity Reaction Status Date / Time
amlodipine Allergy Swelling Verified 08/28/23 08:29
diltiazem Allergy edema Verified 08/28/23 08:29
montelukast sodium Allergy Rash Verified 08/28/23 08:29
[From Singulair]
nifedipine [Nifedipine] Allergy edma Verified 08/28/23 08:29
ramipril [From Altace] Allergy cough Verified 08/28/23 08:29
valsartan [From Diovan] Allergy COUGH Verified 08/28/23 08:29
FERNANDO Inhibitors AdvReac cough Verified 08/28/23 08:29
[Fernando Inhibitors]
oxycodone HCl [From Percocet] AdvReac stomach Verified 08/28/23 08:29
ache
spironolactone AdvReac tenderness Verified 08/28/23 08:29
of breast
tamsulosin AdvReac lightheaded Verified 08/28/23 08:29
Review of Systems:
Constitutional: (x) Normal _
Eye: (x) Normal _
Ear/Nose/Throat: (x) Normal _
Respiratory: (x) Normal _
Cardiovascular: (x) Normal _
Gastrointestinal: (x) Normal _
Genitourinary: (x) Normal _
Musculoskeletal: (x) s/p right rotator cuff repair
Integumentary: (x) Normal _
Neurologic: (x) cva, aphasia
Psychiatric: (x) Normal _
Endocrine: (x) Normal _
Hematologic/Lymphatic: (x) Normal _
Allergic/Immunologic: (x) Normal _
Medications:
Active Current Visit Medication List
Category Date Time Status
Acetaminophen [Tylenol] Med 08/28/23 16:00 Active
1,000 mg PO TID
Alprazolam [Xanax] Med 08/29/23 22:00 Active
0.25 mg PO HSPRN PRN
Atorvastatin [Lipitor] Med 08/29/23 08:00 Active
80 mg PO DAILY
Cholecalciferol (Vitamin D3) [VITAMIN D3 ( Med 08/29/23 08:00 Active
cholecalciferol)]
50 mcg PO DAILY
Finasteride [Proscar] Med 08/29/23 08:00 Active
5 mg PO DAILY
Flush (0.9% Sodium Chloride) [Flush (Nss)] Med 08/28/23 16:00 Active
See Dose Instructions IV PER PROTOCOL
Furosemide [Lasix] Med 08/29/23 08:00 Active
20 mg PO DAILY
HydrALAZINE [Apresoline] Med 08/28/23 16:00 Active
25 mg PO TID
Labetalol HCl [Trandate] Med 08/29/23 09:15 Active
5 mg IV Q6HPRN PRN
Lactobac/Bifidobac [Visbiome] Med 08/28/23 20:00 Active
1 cap PO BID
Lidocaine [Lidocaine 4% Patch] Med 08/28/23 15:20 Active
1 patch TOPICAL DAILYPRN PRN
Losartan [Cozaar] Med 08/28/23 20:00 Active
50 mg PO BID
Ondansetron Injectable [Zofran] Med 08/28/23 15:06 Active
4 mg IV Q6HPRN PRN
Pantoprazole [Protonix] Med 08/29/23 08:00 Active
40 mg PO DAILY
Vitals:
Temp Pulse Resp BP Pulse Ox
98.4 F 85 18 151/79 99
09/01/23 07:34 09/01/23 07:34 09/01/23 07:34 09/01/23 07:34 09/01/23 07:34
Height 5 ft 5 in
Actual Weight 67.7 kg
Body Mass Index (BMI) 24.8
Physical Exam:
General Appearance/Observation: Well-developed, well-nourished individual in no apparent distress.
Pain/Comfort Assessment: Denies
Mood/Affect: flat
Integumentary/Operative Site:
�� Pressure Ulcer Evaluation: absent over heels.
��
�� Other Type of Wound: wearing casting
��
Eyes: Conjunctiva/Lids: normal ��� Pupils: pupils equal round and reactive to light and Accommodation
Ears/Nose/Throat: oral mucosa moist,� throat clear.������������ Lips/Teeth/Gums: normal
Neck: No muscle spasm or tenderness
Cardiovascular: Heart: irregular, murmur
Pulses: dorsalis pedis 1+ bilaterally
Respiratory: Respiratory Effort/Chest Expansion: normal ������ Auscultation: Clear to auscultation bilaterally
Gastrointestinal: abdomen not tender, no distension, normal abdominal bowel sounds
Genitourinary: No Marie
Extremities: Edema: None Cyanosis: None Trophic changes: None
Neurology Exam:
Orientation: Alert, Oriented to self, Time, Place
Memory: Intact for immediate medical issues
Higher cortical function
Repetition: Intact
Comprehension:slow to process
Two step command: slow to process, needs repeating at times
Naming: Intact
Cranial Nerves:
�� CNII: Pupillary light reflex: Intact��� Visual Field: Intact
�� CN III, IV, : Extraocular muscles: Intact
�� CN V: Facial Sensation at Forehead: Intact, Maxilla: Intact, Mandible: Intact
�� CN VII: Facial movement: slight asymmetry
�� CN VIII: Hearing: Normal
�� CN IX/X: Speech & swallow: Normal, Position of Uvula: Midline
�� CN XI: Shoulder shrug: weak on the right side-recent surgery, RUE in sling
�� CN XII: Tongue protrusion: slightly deviated to the right
Sensory:
�� Light touch: Intact in bilateral upper and lower extremities
��
Reflexes:
�� Biceps: 1+ left, deferred on right
�� Brachioradialis: 1+ left, deferred right
�� Triceps: 1+ left, deferred right
�� Patellar: 2+ bilaterally
�� Achilles: absent bilaterally
�� Babinski: Down going bilaterally
�� Clonus: None
�� Yusef: positive on right
Cerebellar: Dysmetria/Ataxia: positive on right
Musculoskeletal:
Motor: (Manual muscle scale 0-5)
Muscle SA EF WE EE FF FA HF KE DF EHL PF
Right� 0 0 0 0 4 4 5 5 4+
Left 5 5 5 5 4 4 5 5 5 5 5
Tone: Normal in all extremities, deferred RUE
Range of Motion: Passively within normal limits in all extremities, deferred RUE. Able to squeeze fingers on right hand, cap refill good.
Lab Results
Labs
WBC 5.5 10^3/uL (4.8-10.8) 09/01/23 06:32
RBC 4.07 10^6/uL (4.70-6.10) L 09/01/23 06:32
Hgb 12.3 g/dL (13.0-18.0) L 09/01/23 06:32
Hct 36.7 % (39.0-52.0) L 09/01/23 06:32
MCV 90.2 fL (80.0-94.0) 09/01/23 06:32
MCH 30.2 pg (27.0-31.0) 09/01/23 06:32
MCHC 33.5 g/dL (33.0-37.0) 09/01/23 06:32
RDW 14.6 % (11.5-14.5) H 09/01/23 06:32
Plt Count 162 10^3/uL (130-400) 09/01/23 06:32
MPV 11.0 fL (7.4-10.4) H 09/01/23 06:32
Abs Immat Gran (auto) 0.0 10^3/uL (0-0.05) 08/28/23 11:08
Absolute Neuts (auto) 3.8 10^3/uL (1.4-6.5) 08/28/23 11:08
Absolute Lymphs (auto) 0.9 10^3/uL (1.2-3.4) L 08/28/23 11:08
Absolute Monos (auto) 0.6 10^3/uL (0.1-0.6) 08/28/23 11:08
Absolute Eos (auto) 0.1 10^3/uL (0-0.7) 08/28/23 11:08
Absolute Basos (auto) 0.1 10^3/uL (0-0.2) 08/28/23 11:08
Immature Gran % 0.2 % (0-0.5) 08/28/23 11:08
Neutrophils % 69.7 % (42.2-75.2) 08/28/23 11:08
Lymphocytes % 16.6 % (20.5-51.1) L 08/28/23 11:08
Monocytes % 11.5 % (1.7-9.3) H 08/28/23 11:08
Eosinophils % 1.1 % (0-6) 08/28/23 11:08
Basophils % 0.9 % (0-2) 08/28/23 11:08
Nucleated RBC % 0 % (-) 08/28/23 11:08
PT 16.7 Sec (11.4-14.6) H 08/30/23 03:31
INR 1.37 08/30/23 03:31
APTT 37.9 Sec (23.4-35.0) H 08/30/23 03:31
Fibrinogen 337 MG/DL (199-459) 08/28/23 11:22
Sodium 136 mmol/L (135-145) 09/01/23 06:32
Potassium 4.2 mmol/L (3.5-5.1) 09/01/23 06:32
Chloride 106 mmol/L (98-107) 09/01/23 06:32
Carbon Dioxide 25 mmol/L (22-30) 09/01/23 06:32
BUN 24 mg/dl (9-20) H 09/01/23 06:32
Creatinine 0.7 mg/dL (0.7-1.3) 09/01/23 06:32
Estimated Creat Clear 72 ml/min 09/01/23 06:32
eGFR > 60.00 09/01/23 06:32
Glucose 90 mg/dl (70-99) 09/01/23 06:32
Hemoglobin A1c 6.0 % (4.0-5.6) H 08/28/23 11:08
Calcium 9.3 mg/dl (8.4-10.2) 09/01/23 06:32
Phosphorus 3.2 mg/dl (2.5-4.5) 08/30/23 03:31
Magnesium 2.0 mg/dl (1.6-2.3) 08/30/23 03:31
Total Bilirubin 1.9 mg/dl (0.2-1.3) H 08/29/23 03:41
Direct Bilirubin 0.3 mg/dl (0.0-0.4) 08/29/23 03:41
GGT 245 U/L (15-73) H 08/29/23 03:41
AST 51 U/L (17-59) 08/29/23 03:41
ALT 48 U/L (0-50) 08/29/23 03:41
Alkaline Phosphatase 236 U/L (38-126) H 08/29/23 03:41
Total Protein 6.4 g/dl (6.3-8.2) 08/29/23 03:41
Albumin 4.0 g/dl (3.5-5.0) 08/29/23 03:41
Triglycerides 50 mg/dl (10-149) 08/29/23 03:41
Total Cholesterol 93 mg/dl (50-199) 08/29/23 03:41
LDL Cholesterol, Calc 37 mg/dl 08/29/23 03:41
VLDL Cholesterol, Calc 10 mg/dl (0-30) 08/29/23 03:41
HDL Cholesterol 46 mg/dl 08/29/23 03:41
Urine Color Yellow 08/28/23 12:10
Urine Clarity Clear (Clear) 08/28/23 12:10
Urine pH 5.0 (5.0-9.0) 08/28/23 12:10
Ur Specific [place] 1.015 (<1.030) 08/28/23 12:10
Urine Ketones Negative (Negative) 08/28/23 12:10
Ur Occult Blood Reflex 1+ (Negative) A 08/28/23 12:10
Urine Nitrite (Reflex) Negative (Negative) 08/28/23 12:10
Urine Bilirubin Negative (Negative) 08/28/23 12:10
Urine Urobilinogen Negative (Neg - 1+) 08/28/23 12:10
Leukocyte Esterase Rfl Negative (Negative) 08/28/23 12:10
Urine RBC 0-2 /HPF (0-2) 08/28/23 12:10
Urine WBC (Reflex) 0-2 /HPF (0-5) 08/28/23 12:10
Urine Bacteria (Reflex) Few (Negative) A 08/28/23 12:10
Urine Glucose Negative (Negative) 08/28/23 12:10
Urine Albumin (Reflex) Trace (Neg - Trace) 08/28/23 12:10
Salicylates < 1.0 mg/dl (2.0-20.0) L 08/28/23 11:08
Acetaminophen < 10 ug/ml (10-30) L 08/28/23 11:08
POC Glucose 112 mg/dl (70-99) H 08/28/23 23:46
�
Diagnostic Results: as per HPI
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 Sol,
hypertension, and coronary artery disease presented status post fall secondary to dizziness.� Patient was found to have small intracranial hemorrhage in the posterior horn of the lateral ventricles bilaterally, left greater than right. There was
suspicion of accidental extra doses of medications including Apixaban as bilateral intraventricular hemorrhage seen on CT head,
Plan
PT/OT to increase independence with ADLs, improve balance, coordination, endurance, strength, mobility, community reintegration, decreased burden of care on others and family education.
CVA: small intracranial hemorrhage in the posterior horn of the lateral ventricles bilaterally, left greater than right. Losartan has been increased to 50 mg twice a day, hydralazine ordered 25 mg 3 times a day, Labetolol IV PRN. Pr neurology keep
BP SBP at 140 systollic.
l(SBP less than 180 and diastolic less than 100 to participate with therapy for ischemic stroke). Continue to monitor neurologic status.
Aphasia: speech evaluation
Peripheral polyneuropathy: It is reasonable to check a B12, TSH, and hemoglobin A1c to start.�
HTN: Losartan 50 mg twice a day, hydralazine 25 mg 3 times a day
HLD: Statin
Coronary artery disease : Aspirin, statin, beta-wu
Atrial fibrillation:�Permanent atrial fibrillation. Neurology recommends starting aspirin 81 mg on 09/03, and then resuming Eliquis on 09/24-4 weeks after ICH was found
Neurology recommends outpatient follow-up w/ cardiology for Watchman device
Anemia: Hgb 12.1- Likely multifactorial.� Continue to monitor.
Psych: Psychology consult.� Anxiety -Monitor mood, adjust medications as needed.
Skin: monitor for pressure sores/rashes/lesions.
Pain: acetaminophen,
Bowel: Colace and Senna, PRN bisacodyl.
Bladder: Time void, PVRs, PRN straight cath.
GI Prophylaxis: Pantoprazole
DVT Prophylaxis: mechanical,
Pulmonary: Incentive spirometry
Safety: Continue to reinforce assistance with all transfers.
Code Status:� DNR
Dispo (date/plan/equipment needs): Home with family care.� Social history reviewed.
Functional and Medical Goals: Modified Independent with ADL�s, ambulation, transfers
Summary of recommendations:
Discharge Destination: Patient would benefit from acute inpatient rehabilitation based on his current status of ambulating 40 feet on single-point cane and min assist, slow gait, wide base with support, no overt loss of balance. Toilet transfer�min
assist, grooming�set up, toileting�mod assist, lower extremity dressing�mod assist
CVA: small intracranial hemorrhage in the posterior horn of the lateral ventricles bilaterally, left greater than right.
1. Losartan 50 mg twice a day, hydralazine 25 mg 3 times a day. IV medications need to be converted to PO.
2.(SBP less than 180 and diastolic less than 100 to participate with therapy for ischemic stroke). Continue to monitor
3. Neurology recommends starting aspirin 81 mg on 09/03, and then resuming Eliquis on 09/24-4 weeks after ICH. neurology
Neurology recommends outpatient follow-up w/ cardiology for Watchman device
4.DVT Prophylaxis:mechanical,
5.Pulmonary: Incentive spirometry
6.Bowel: Colace and Senna, PRN bisacodyl.
7 Aphasia: speech evaluation
Thank you for allowing me to care for your patient. Please contact me with any questions or concerns.
This note was dictated using a voice recognition system. Please excuse any typographical errors from brake operator helper. If you believe there are any discrepancies, please notify our office.

Documented by User: Miguel A Denson MD 09/01/23 21:28
Consultation - Medical
-
Referring Provider: Neno Hodge
Chief Complaint: CVA
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 Sol, hypertension, and coronary artery disease presented status post fall secondary to dizziness.� Patient was found to have small intracranial hemorrhage in the posterior horn of the lateral ventricles bilaterally, left greater than right.
There was suspicion of accidental extra doses of medications including Apixaban as bilateral intraventricular hemorrhage seen on CT head, no obvious head trauma.� Had reversal of Apixaban with Kcentra in ED. Neurosurgery did not recommend any
surgical intervention. MRI 08/28 shows stable hemorrhage.
MRI Brain: 08/29/2023
Small amount of acute intraventricular hemorrhage in the bilateral lateral ventricles.
2. Chronic senescent changes.
3. Scattered foci of chronic microhemorrhages most suggestive of cerebral amyloid angiopathy.
Head CT 08/28/23
Small volume acute hemorrhage layering in the posterior horn of the lateral ventricles bilaterally, left slightly greater than right.
Findings compatible with diffuse cortical atrophy with nonspecific white matter changes as described above.
Chest X-ray
No radiographic evidence of acute cardiopulmonary abnormality.
Past Medical History: atrial fibrillation on Eliquis, previous ICH when on Coumadin, hyperlipidemia, hypertension, peripheral neuropathy, GERD, Anxiety
Procedure History: right rotator cuff repair on 08/11/2023, CADs/p juju (LAD 1998)
Family History: Non-contributory, orphan
Social History:
Functional Level Premorbidly: independent pre-surgery with visiting [place] for few hours Assisted, cane, OT at home and health aide. Sleeps in recliner- since Rotator cuff surgery
Functional Level Currently: Supine to sit�min assist, sit to stand�min assist, ambulated 40 feet on single-point cane and min assist, slow gait, wide base with support, no overt loss of balance. Toilet transfer�min assist, grooming�set up,
toileting�mod assist, lower extremity dressing�mod assist
Tobacco: former smoker
Alcohol: Denies
Drug use: Denies
Lives with: Alone
24-hour assistance available: No
Number of floors:1
# steps to enter: 1
Driving: yes
Occupation: retired
Allergies:
Allergy/AdvReac Type Severity Reaction Status Date / Time
amlodipine Allergy Swelling Verified 08/28/23 08:29
diltiazem Allergy edema Verified 08/28/23 08:29
montelukast sodium Allergy Rash Verified 08/28/23 08:29
[From Singulair]
nifedipine [Nifedipine] Allergy edma Verified 08/28/23 08:29
ramipril [From Altace] Allergy cough Verified 08/28/23 08:29
valsartan [From Diovan] Allergy COUGH Verified 08/28/23 08:29
FERNANDO Inhibitors AdvReac cough Verified 08/28/23 08:29
[Fernando Inhibitors]
oxycodone HCl [From Percocet] AdvReac stomach Verified 08/28/23 08:29
ache
spironolactone AdvReac tenderness Verified 08/28/23 08:29
of breast
tamsulosin AdvReac lightheaded Verified 08/28/23 08:29
Review of Systems:
Constitutional: (x) Normal _
Eye: (x) Normal _
Ear/Nose/Throat: (x) Normal _
Respiratory: (x) Normal _
Cardiovascular: (x) Normal _
Gastrointestinal: (x) Normal _
Genitourinary: (x) Normal _
Musculoskeletal: (x) s/p right rotator cuff repair
Integumentary: (x) Normal _
Neurologic: (x) cva, aphasia
Psychiatric: (x) Normal _
Endocrine: (x) Normal _
Hematologic/Lymphatic: (x) Normal _
Allergic/Immunologic: (x) Normal _
Medications:
Active Current Visit Medication List
Category Date Time Status
Acetaminophen [Tylenol] Med 08/28/23 16:00 Active
1,000 mg PO TID
Alprazolam [Xanax] Med 08/29/23 22:00 Active
0.25 mg PO HSPRN PRN
Atorvastatin [Lipitor] Med 08/29/23 08:00 Active
80 mg PO DAILY
Cholecalciferol (Vitamin D3) [VITAMIN D3 ( Med 08/29/23 08:00 Active
cholecalciferol)]
50 mcg PO DAILY
Finasteride [Proscar] Med 08/29/23 08:00 Active
5 mg PO DAILY
Flush (0.9% Sodium Chloride) [Flush (Nss)] Med 08/28/23 16:00 Active
See Dose Instructions IV PER PROTOCOL
Furosemide [Lasix] Med 08/29/23 08:00 Active
20 mg PO DAILY
HydrALAZINE [Apresoline] Med 08/28/23 16:00 Active
25 mg PO TID
Labetalol HCl [Trandate] Med 08/29/23 09:15 Active
5 mg IV Q6HPRN PRN
Lactobac/Bifidobac [Visbiome] Med 08/28/23 20:00 Active
1 cap PO BID
Lidocaine [Lidocaine 4% Patch] Med 08/28/23 15:20 Active
1 patch TOPICAL DAILYPRN PRN
Losartan [Cozaar] Med 08/28/23 20:00 Active
50 mg PO BID
Ondansetron Injectable [Zofran] Med 08/28/23 15:06 Active
4 mg IV Q6HPRN PRN
Pantoprazole [Protonix] Med 08/29/23 08:00 Active
40 mg PO DAILY
Vitals:
Temp Pulse Resp BP Pulse Ox
98.4 F 85 18 151/79 99
09/01/23 07:34 09/01/23 07:34 09/01/23 07:34 09/01/23 07:34 09/01/23 07:34
Height 5 ft 5 in
Actual Weight 67.7 kg
Body Mass Index (BMI) 24.8
Physical Exam:
General Appearance/Observation: Well-developed, well-nourished individual in no apparent distress.
Pain/Comfort Assessment: Denies
Mood/Affect: flat
Integumentary/Operative Site: Has right arm sling
�� Pressure Ulcer Evaluation: absent over heels.
Eyes: Conjunctiva/Lids: normal ��� Pupils: pupils equal round and reactive to light and Accommodation
Ears/Nose/Throat: oral mucosa moist,� throat clear.������������ Lips/Teeth/Gums: normal
Neck: No muscle spasm or tenderness
Cardiovascular: Heart: irregular, murmur
Pulses: dorsalis pedis 1+ bilaterally
Respiratory: Respiratory Effort/Chest Expansion: normal ������ Auscultation: Clear to auscultation bilaterally
Gastrointestinal: abdomen not tender, no distension, normal abdominal bowel sounds
Genitourinary: No Marie
Extremities: Edema: None Cyanosis: None Trophic changes: None
Neurology Exam:
Orientation: Alert, Oriented to self, Time, Place
Memory: Intact for immediate medical issues
Repetition: Intact
Comprehension:slow to process
Two step command: slow to process, needs repeating at times
Naming: Intact
Cranial Nerves:
�� CNII: Pupillary light reflex: Intact��� Visual Field: Intact
�� CN III, IV, : Extraocular muscles: Intact
�� CN V: Facial Sensation at Forehead: Intact, Maxilla: Intact, Mandible: Intact
�� CN VII: Facial movement: slight asymmetry
�� CN VIII: Hearing: Normal
�� CN IX/X: Speech & swallow: Normal, Position of Uvula: Midline
�� CN XI: Shoulder shrug: weak on the right side-recent surgery, RUE in sling
�� CN XII: Tongue protrusion: slightly deviated to the right
Sensory:
�� Light touch: Intact in bilateral upper and lower extremities
��
Reflexes:
�� Biceps: 2+ left, deferred on right
�� Brachioradialis: 2+ left, deferred right
�� Triceps: 2+ left, deferred right
�� Patellar: 2+ bilaterally
�� Achilles: absent bilaterally
�� Babinski: Down going bilaterally
�� Clonus: None
�� Yusef: positive on right
Cerebellar: Dysmetria/Ataxia: none on left. Right cant be tested.
Musculoskeletal: Motor: (Manual muscle scale 0-5)
Muscle SA EF WE EE FF FA HF KE DF EHL PF
Right� NT NT NT NT Moving Moving 4 4 5 5 4+
Left 5 5 5 5 4 4 5 5 5 5 5
Tone: Normal in all extremities, deferred RUE
Range of Motion: Passively within normal limits in all extremities, deferred RUE. Able to squeeze fingers on right hand, cap refill good.
Lab Results
Labs
WBC 5.5 10^3/uL (4.8-10.8) 09/01/23 06:32
RBC 4.07 10^6/uL (4.70-6.10) L 09/01/23 06:32
Hgb 12.3 g/dL (13.0-18.0) L 09/01/23 06:32
Hct 36.7 % (39.0-52.0) L 09/01/23 06:32
MCV 90.2 fL (80.0-94.0) 09/01/23 06:32
MCH 30.2 pg (27.0-31.0) 09/01/23 06:32
MCHC 33.5 g/dL (33.0-37.0) 09/01/23 06:32
RDW 14.6 % (11.5-14.5) H 09/01/23 06:32
Plt Count 162 10^3/uL (130-400) 09/01/23 06:32
MPV 11.0 fL (7.4-10.4) H 09/01/23 06:32
Abs Immat Gran (auto) 0.0 10^3/uL (0-0.05) 08/28/23 11:08
Absolute Neuts (auto) 3.8 10^3/uL (1.4-6.5) 08/28/23 11:08
Absolute Lymphs (auto) 0.9 10^3/uL (1.2-3.4) L 08/28/23 11:08
Absolute Monos (auto) 0.6 10^3/uL (0.1-0.6) 08/28/23 11:08
Absolute Eos (auto) 0.1 10^3/uL (0-0.7) 08/28/23 11:08
Absolute Basos (auto) 0.1 10^3/uL (0-0.2) 08/28/23 11:08
Immature Gran % 0.2 % (0-0.5) 08/28/23 11:08
Neutrophils % 69.7 % (42.2-75.2) 08/28/23 11:08
Lymphocytes % 16.6 % (20.5-51.1) L 08/28/23 11:08
Monocytes % 11.5 % (1.7-9.3) H 08/28/23 11:08
Eosinophils % 1.1 % (0-6) 08/28/23 11:08
Basophils % 0.9 % (0-2) 08/28/23 11:08
Nucleated RBC % 0 % (-) 08/28/23 11:08
PT 16.7 Sec (11.4-14.6) H 08/30/23 03:31
INR 1.37 08/30/23 03:31
APTT 37.9 Sec (23.4-35.0) H 08/30/23 03:31
Fibrinogen 337 MG/DL (199-459) 08/28/23 11:22
Sodium 136 mmol/L (135-145) 09/01/23 06:32
Potassium 4.2 mmol/L (3.5-5.1) 09/01/23 06:32
Chloride 106 mmol/L (98-107) 09/01/23 06:32
Carbon Dioxide 25 mmol/L (22-30) 09/01/23 06:32
BUN 24 mg/dl (9-20) H 09/01/23 06:32
Creatinine 0.7 mg/dL (0.7-1.3) 09/01/23 06:32
Estimated Creat Clear 72 ml/min 09/01/23 06:32
eGFR > 60.00 09/01/23 06:32
Glucose 90 mg/dl (70-99) 09/01/23 06:32
Hemoglobin A1c 6.0 % (4.0-5.6) H 08/28/23 11:08
Calcium 9.3 mg/dl (8.4-10.2) 09/01/23 06:32
Phosphorus 3.2 mg/dl (2.5-4.5) 08/30/23 03:31
Magnesium 2.0 mg/dl (1.6-2.3) 08/30/23 03:31
Total Bilirubin 1.9 mg/dl (0.2-1.3) H 08/29/23 03:41
Direct Bilirubin 0.3 mg/dl (0.0-0.4) 08/29/23 03:41
GGT 245 U/L (15-73) H 08/29/23 03:41
AST 51 U/L (17-59) 08/29/23 03:41
ALT 48 U/L (0-50) 08/29/23 03:41
Alkaline Phosphatase 236 U/L (38-126) H 08/29/23 03:41
Total Protein 6.4 g/dl (6.3-8.2) 08/29/23 03:41
Albumin 4.0 g/dl (3.5-5.0) 08/29/23 03:41
Triglycerides 50 mg/dl (10-149) 08/29/23 03:41
Total Cholesterol 93 mg/dl (50-199) 08/29/23 03:41
LDL Cholesterol, Calc 37 mg/dl 08/29/23 03:41
VLDL Cholesterol, Calc 10 mg/dl (0-30) 08/29/23 03:41
HDL Cholesterol 46 mg/dl 08/29/23 03:41
Urine Color Yellow 08/28/23 12:10
Urine Clarity Clear (Clear) 08/28/23 12:10
Urine pH 5.0 (5.0-9.0) 08/28/23 12:10
Ur Specific Benson 1.015 (<1.030) 08/28/23 12:10
Urine Ketones Negative (Negative) 08/28/23 12:10
Ur Occult Blood Reflex 1+ (Negative) A 08/28/23 12:10
Urine Nitrite (Reflex) Negative (Negative) 08/28/23 12:10
Urine Bilirubin Negative (Negative) 08/28/23 12:10
Urine Urobilinogen Negative (Neg - 1+) 08/28/23 12:10
Leukocyte Esterase Rfl Negative (Negative) 08/28/23 12:10
Urine RBC 0-2 /HPF (0-2) 08/28/23 12:10
Urine WBC (Reflex) 0-2 /HPF (0-5) 08/28/23 12:10
Urine Bacteria (Reflex) Few (Negative) A 08/28/23 12:10
Urine Glucose Negative (Negative) 08/28/23 12:10
Urine Albumin (Reflex) Trace (Neg - Trace) 08/28/23 12:10
Salicylates < 1.0 mg/dl (2.0-20.0) L 08/28/23 11:08
Acetaminophen < 10 ug/ml (10-30) L 08/28/23 11:08
POC Glucose 112 mg/dl (70-99) H 08/28/23 23:46
�
Diagnostic Results: as per HPI
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 Sol,
hypertension, and coronary artery disease presented status post fall secondary to dizziness.� Patient was found to have small intracranial hemorrhage in the posterior horn of the lateral ventricles bilaterally, left greater than right. There was
suspicion of accidental extra doses of medications including Apixaban as bilateral intraventricular hemorrhage seen on CT head,
Plan
PT/OT to increase independence with ADLs, improve balance, coordination, endurance, strength, mobility, community reintegration, decreased burden of care on others and family education.
CVA: small intracranial hemorrhage in the posterior horn of the lateral ventricles bilaterally, left greater than right. Keep SBP below 140 with hemorrhagic stroke. Continue to monitor neurologic status.
Aphasia: speech evaluation
Peripheral polyneuropathy: It is reasonable to check a B12, TSH, and hemoglobin A1c to start.�
HTN: Losartan 50 mg twice a day, hydralazine 25 mg 3 times a day
HLD: Statin
Coronary artery disease : Aspirin, statin, beta-wu
Atrial fibrillation:�Permanent atrial fibrillation. Neurology recommends starting aspirin 81 mg on 09/03, and then resuming Eliquis on 09/24-4 weeks after ICH was found
Neurology recommends outpatient follow-up w/ cardiology for Watchman device
Anemia: Hgb 12.1- Likely multifactorial.� Continue to monitor.
Psych: Psychology consult.� Anxiety -Monitor mood, adjust medications as needed.
Skin: monitor for pressure sores/rashes/lesions.
Pain: acetaminophen,
Bowel: Colace and Senna, PRN bisacodyl.
Bladder: Time void, PVRs, PRN straight cath.
GI Prophylaxis: Pantoprazole
DVT Prophylaxis: mechanical, consider chemoprophylaxis
Pulmonary: Incentive spirometry
Safety: Continue to reinforce assistance with all transfers.
Code Status:� DNR
Dispo (date/plan/equipment needs): Home with family care.� Social history reviewed.
Functional and Medical Goals: Modified Independent with ADL�s, ambulation, transfers
Attending Statement:
I saw and examined the patient today.� Reviewed care plan with patient, therapy, nursing, and physician housekeeping assistant.� I agree with the above subjective and physical exam, and plan as documented.
Summary of recommendations:
Discharge Destination: Patient would benefit from acute inpatient rehabilitation based on his current status of ambulating 40 feet on single-point cane and min assist, slow gait, wide base with support, no overt loss of balance. Toilet transfer�min
assist, grooming�set up, toileting�mod assist, lower extremity dressing�mod assist
CVA: small intracranial hemorrhage in the posterior horn of the lateral ventricles bilaterally, left greater than right.
-Neurology recommends starting aspirin 81 mg on 09/03, and then resuming Eliquis on 09/24-4 weeks after ICH. neurology
-Neurology recommends outpatient follow-up w/ cardiology for Watchman device
HTN: Losartan 50 mg twice a day, hydralazine 25 mg 3 times a day. IV medications need to be converted to PO.
DVT Prophylaxis:mechanical, consider chemoprophylaxis
Aphasia: speech evaluation
Thank you for allowing me to care for your patient. Please contact me with any questions or concerns.
This note was dictated using a voice recognition system. Please excuse any typographical errors from brake operator helper. If you believe there are any discrepancies, please notify our office.
[2023-09-01 11:39] VITALS: BP 112/52
--- NOTE | 2023-09-01 13:05 | PN.CDI ---
CDI
- -
CDI:
Physician Documentation Request
Admit Date: 08/28/23 13:10
Dear Doctor Naveen,
Please review the following and provide your response in the progress notes.
Clinical Indicators:
Pt admitted with ICH /Encephalopathy
Documented per H&P and progress notes , ' presented status post fall secondary to dizziness.� Patient was found to have small intracranial hemorrhage in the posterior horn of the lateral ventricles bilaterally, left greater than right....Acute
intracerebral hemorrhage exacerbated by Eliquis use...'
Neurology progress notes , ' -Plan for stopping aspirin and restarting Apixaban 09/24, 4 weeks after ICH was found Recommend outpatient cardiology evaluation for watchmen device candidacy...Etiology most likely a combination of Apixaban
anticoagulation in addition to cerebral amyloid angiopathy Not a typical picture for a hypertensive brain hemorrhage...'
Neurology progress note 08/30, ' MRI brain shows mostly cortical based chronic microhemorrhages Patient likely does have cerebral amyloid angiopathy based on MRI imaging showing mostly cortical based microbleeds and having one ICH and a separate
instance of IVH...'
Please provide the Suspected Etiology/Etiologies of the Documented ICH:
Multifactorial due to Cerebral Amyloid Angiopathy/ Eliquis use/ Fall
Multifactorial due to Cerebral Amyloid Angiopathy/Eliquis use
Due to Eliquis use only
Other
Use of terms such as suspected, likely, concern for, or probable (associated with a specific diagnosis that is being evaluated, monitored, or treated as if it exists) are acceptable and can be coded in the inpatient setting, when documented at the
time of discharge.
Thank you,
Tonya Rogel RN
CDI Specialist
[facility]
Please use your independent medical judgment in providing your response.
--- NOTE | 2023-09-01 14:14 | W.PN.HOSP.TC ---
Today's Communication/Plan
-
d/c to [facility]
Assessment / Plan
Assessment / Plan
HPI: 82-year-old male with a past medical history of atrial fibrillation on Eliquis, recent rotator cuff repair on 08/11/[address] Sol, hypertension, and coronary artery disease presented status post fall secondary to dizziness.� Patient was
found to have small intracranial hemorrhage in the posterior horn of the lateral ventricles bilaterally, left greater than right.
#Acute intracerebral hemorrhage exacerbated by Eliquis use
#Essential hypertension
Appreciate neurosurgery input, no surgical intervention recommended
Appreciate neurology input, MRI 08/28 shows stable hemorrhage
Continue to maintain blood pressure less than 140 systolic
Losartan has been increased to 50 mg twice a day, hydralazine ordered 25 mg 3 times a day
Continue as needed IV labetalol
#Permanent atrial fibrillation
Neurology recommends starting aspirin 81 mg on 09/03, and then resuming Eliquis on 09/24-4 weeks after ICH was found
Neurology recommends outpatient follow-up w/ cardiology for Watchman device
#Acute encephalopathy
Unclear source
Family reports patient has been confused since his orthopedic surgery on 08/11/2023
Urine analysis not convincing for infection, continue to monitor mental status off of any sedating medications
#CAD with stents
Continue statin, hold blood thinners secondary to ICH
#Recent right rotator cuff repair on 08/11/2023
Follow-up with Dr. Sol outpatient
#Anxiety
Continue Xanax
#Hyperlipidemia
Continue statin
#BPH
Continue finasteride
#Gastroesophageal reflux disease
Continue PPI
DVT prophylaxis�SCDs
Full code
More than 30 minutes spent in discharge including
Final examination of the patient
Summarizing hospital stay
Instructions for continuing care to all relevant caregivers
Preparation of discharge records, prescriptions, and referral forms
Total time spent (in minutes): 40 mins
Anticipated Discharge: Today
Subjective/Interval History
-
Date of Service: September 01, 2023
some occipital hedache
no n/v
no acute issues
Objective Data
-
Labs:
Laboratory Results
09/01/23
06:32
WBC 5.5
Hgb 12.3 L
Hct 36.7 L
Plt Count 162
Sodium 136
Potassium 4.2
Chloride 106
Carbon Dioxide 25
BUN 24 H
Creatinine 0.7
Glucose 90
Calcium 9.3
Vital Signs:
Vital Signs
Temp Pulse Resp BP Pulse Ox
97.9 F 68 16 112/52 100
09/01/23 11:39 09/01/23 11:39 09/01/23 11:39 09/01/23 11:39 09/01/23 11:39
I&O
08/31/23 09/01/23 09/02/23
06:59 06:59 06:59
Intake Total 1290 / 1290 1020 / 1020
Output Total 600 / 600 1200 / 1200 150 / 150
Balance 690 / 690 -180 / -180 -150 / -150
Review of Systems
-
Respiratory: Reports No Symptoms
Cardiac: Reports No Symptoms
Abdomen/GI: Reports No Symptoms
Physical Exam
-
General: No Apparent Distress and Comfortable
HEENT: Negative Oxygen
Respiratory: Clear to Auscultation
Cardiac: Regular Rhythm and S1/S2; Negative Murmur or Rub
GI: Soft, Nontender and Nondistended
Musculoskeletal: No Edema
Neuro: Awake, Alert, Oriented, No Motor Deficits and Nonfocal/Grossly Intact
Psych: Calm
[2023-09-01 15:04] VITALS: BP 141/56
--- NOTE | 2023-09-02 08:00 | W.DCSUMMARY ---
Discharge Summary
Discharge Data
Date of Admission: 08/28/23
Date of Discharge: 09/01/23
-
Pending Results: No
Hospital Course
Discharging Physician : Dr Neno Hodge
Disposition : Acute rehab
Primary care physician : Dr Yashira Contreras
Principal Discharge diagnosis :
Mechanical fall
Acute intracranial hemorrhage exacerbated with Eliquis use
Mild encephalopathy
Chronic Discharge diagnosis :
Essential hypertension
Permanent atrial fibrillation
Coronary disease with stents
History of right rotator cuff repair
Anxiety
Hyperlipidemia
Benign prostatic hyperplasia
Gastroesophageal reflux disease
Hospital Course :
Patient is 82-year-old male with mentioned past medical history came to ER after having new dizziness and after fall. CT head in ER showed patient had small intracranial hemorrhage in the posterior horn of the lateral ventricle bilaterally.
Patient was admitted to ICU and neurology/neurosurgery and nurse companion were consulted. Patient was taken off of Eliquis, noted suspected component of cerebral amyloid angiopathy. Follow-up MRI brain showed cortical based microhemorrhages and
intraventricular blood. Patient had some episode of forgetfulness although overall cognition and neurological functions were intact. Patient blood pressure medication adjusted for tighter blood pressure control. Patient was evaluated by physical
therapy and was appropriate for rehab. [facility] and was discharged for acute rehab.
Post discharge neurology recommended portion to be started on aspirin only on 03 September followed by switching aspirin to Eliquis on 24 September.
Important imaging findings :
MR brain
1. Small amount of acute intraventricular hemorrhage in the bilateral lateral ventricles.
2. Chronic senescent changes.
3. Scattered foci of chronic microhemorrhages most suggestive of cerebral amyloid angiopathy.
Procedure findings :
None
Discharge Plan
-
Patient Disposition: Acute Rehab Facility
Discharge Diagnosis/Procedures: Intracranial hemorrhage, Recent right rotator cuff repair
Condition: Fair
Diet: Regular
Activity: As tolerated
Driving Restrictions: No driving
Bathing Restrictions: OK to Shower
Activity Restrictions/Additional Instructions:
Please follow-up with your usual stock hanger to discuss Watchman device.
Referrals:
Yashira Contreras MD [Family Provider] - in one week
Miguel A Valero MD [Active] - in two to three weeks
Prescriptions:
New
losartan 50 mg Tablet
50 mg PO BID Qty: 60 0RF
hydralazine 25 mg Tablet
25 mg PO TID Qty: 30 0RF
alprazolam 0.25 mg Tablet
0.25 mg PO HSPRN PRN (Reason: anxiety) Qty: 5 0RF
aspirin 81 mg capsule
81 mg PO DAILY Qty: 21 0RF
Rx Instructions:
Start on 09/03 and end on 09/23
Continued
atorvastatin 80 MG tablet
80 mg PO DAILY
omeprazole 40 mg Capsule,Delayed Release(Dr/Ec)
40 mg PO DAILY
furosemide 20 mg Tablet
20 mg PO DAILY
Lactobacillus acidophilus Capsule
1 cap PO BID
finasteride 5 mg Tablet
5 mg PO DAILY
magnesium 200 mg Tablet
200 mg PO DAILY
cholecalciferol (vitamin D3) [Vitamin D3] 50 mcg (2,000 unit) Tablet
50 mcg PO DAILY
PreserVision AREDS-2 250-90-40-1 mg Capsule
1 tab PO BID
Nurtec ODT 75 mg Tablet,Disintegrating
75 mg PO ONCE PRN (Reason: Headaches)
ascorbic acid (vitamin C) [Vitamin C] 1,000 mg Tablet
1,000 mg PO DAILY
lidocaine 5 % Adhesive Patch,Medicated
1 patch TOPICAL DAILY PRN (Reason: apply to back (L4-L5))
zinc 50 mg Tablet
50 mg PO DAILY
fluticasone propionate 50 mcg/actuation [place],Suspension
2 spray INTRANASAL DAILY PRN (Reason: congestion)
Maalox Liquid
1 dose PO DAILYPRN PRN (Reason: stomach discomfort)
Held
Eliquis 5 MG tablet
5 mg PO BID
Hold Instructions: Resume on 09/25/23.
Discontinued
losartan 50 MG tablet
50 mg PO DAILY
alprazolam 0.25 MG tablet
0.25 mg PO HSPRN PRN (Reason: anxiety)
Patient Comments:
08/28/2023, pt. filled this med. on 07/28/2023 for 30 tablets according to PDMP.
nebivolol [Bystolic] 5 mg Tablet
5 mg PO HS
potassium chloride [Klor-Con 10] 10 mEq Tablet Extended Release
10 meq PO DAILY
Discharge Orders:
Discharge Patient (As Directed); Ordered 09/01/23
Ordered By: Neno Hodge
Discharge Date and Time
Discharge Date/Time: 09/01/23 15:53
== END 2023-09-01 15:53 | DRG 545 ==
LOC: 4 WEST ACU 13:10
PROVIDERS: Registered Nurse; ADMITTING PHYSICIAN Family Medicine; ATTENDING PHYSICIAN Hospitalist; CONSULT PHYSICIAN Internal Medicine Critical Care Medicine; CONSULT PHYSICIAN Physical Medicine & Rehabilitation; CONSULT PHYSICIAN Student in an Organized Health Care Education/Training Program; EMERGENCY PHYSICIAN Emergency Medicine; FAMILY PHYSICIAN Internal Medicine; OTHER PHYSICIAN Neurological Surgery
DX: E85.4 Organ-limited amyloidosis (principal); S06.34AA Traumatic hemorrhage of right cerebrum with loss of consciousness status unknown, initial encounter; D68.32 Hemorrhagic disorder due to extrinsic circulating anticoagulants; E87.1 Hypo-osmolality and hyponatremia; I48.21 Permanent atrial fibrillation; G93.40 Encephalopathy, unspecified; F03.A4 Unspecified dementia, mild, with anxiety; W18.30XA Fall on same level, unspecified, initial encounter; I10 Essential (primary) hypertension; I25.10 Atherosclerotic heart disease of native coronary artery without angina pectoris; E78.00 Pure hypercholesterolemia, unspecified; N40.0 Benign prostatic hyperplasia without lower urinary tract symptoms; K21.9 Gastro-esophageal reflux disease without esophagitis
CPT/HCPCS: 70450; 70551; 71045; 80048; 80053; 80061; 80143; 80179; 81003; 81015; 82248; 82962; 82977; 83036; 83735; 84100; 85025; 85027; 85384; 85610; 85730; 92523; 93005; 96374; 97163; 97167; 97530; 97535; 99285; J7168

== ENCOUNTER → 2023-11-11 16:07 | Outpatient (REF) | payer MEDICARE, BC, SELFPAY | LOC: RAD 16:07 | PROVIDERS: ATTENDING PHYSICIAN Internal Medicine | DX: S06.369S Traumatic hemorrhage of cerebrum, unspecified, with loss of consciousness of unspecified duration, sequela (principal) | CPT/HCPCS: 70450 ==

== ENCOUNTER → 2023-11-25 12:52 | Outpatient (REF) | payer MEDICARE, BC, SELFPAY | LOC: RAD 12:52 | PROVIDERS: ATTENDING PHYSICIAN Internal Medicine Cardiovascular Disease; FAMILY PHYSICIAN Internal Medicine | DX: I61.5 Nontraumatic intracerebral hemorrhage, intraventricular (principal) | CPT/HCPCS: 75572; Q9967 ==

== ENCOUNTER → 2023-12-09 15:39 | Outpatient (REF) | payer MEDICARE, BC, SELFPAY | LOC: RCS 15:39 | PROVIDERS: ATTENDING PHYSICIAN Internal Medicine Cardiovascular Disease; FAMILY PHYSICIAN Internal Medicine | DX: I48.20 Chronic atrial fibrillation, unspecified (principal) | CPT/HCPCS: 93306 ==

== ENCOUNTER → 2023-12-28 07:24 | Outpatient (REF) | payer MEDICARE, BC, SELFPAY | LOC: MRI 07:24 | PROVIDERS: ATTENDING PHYSICIAN Psychiatry & Neurology Neurology; FAMILY PHYSICIAN Internal Medicine | DX: G62.9 Polyneuropathy, unspecified (principal); W19.XXXD Unspecified fall, subsequent encounter; R20.0 Anesthesia of skin | CPT/HCPCS: 72148 ==

== ENCOUNTER 2024-02-02 07:49 | Inpatient (IN) | payer MEDICARE, BC, SELFPAY ==
[2024-01-26 09:13] VITALS: BMI 27.1
[2024-01-26 09:51] LABS: % Basophils 0.5 % (0-2); % Eosinophils 3.5 % (0-6); % Immature Granulocytes 0.2 % (0-0.5); % Lymphocytes 23.5 % (20.5-51.1); % Monocytes 15.3 % (1.7-9.3); Absolute Eosinophils 0.2 10^3/uL (0-0.7); Absolute Monocytes 0.7 10^3/uL (0.1-0.6); Absolute Neutrophils 2.4 10^3/uL (1.4-6.5); Hematocrit 34.3 % (39.0-52.0); Hemoglobin 11.5 g/dL (13.0-18.0); Mean Corp Hgb Conc. 33.5 g/dL (33.0-37.0); Mean Corpuscular Hgb 31.3 pg (27.0-31.0); Mean Corpuscular Volume 93.2 fL (80.0-94.0); Mean Platelet Volume 11.7 fL (7.4-10.4); Nucleated Red Blood Cells % 0 % (-); Platelet Count 108 10^3/uL (130-400); Red Blood Cell Count 3.68 10^6/uL (4.70-6.10); Red Cell Dist. Width 13.2 % (11.5-14.5); White Blood Cell Count 4.3 10^3/uL (4.8-10.8)
[2024-01-26 10:03] LABS: INR 1.83
[2024-01-26 10:14] LABS: ALT (SGPT) 36 U/L (0-50); AST (SGOT) 37 U/L (17-59); Albumin 4.4 g/dl (3.5-5.0); Alkaline Phosphatase 141 U/L (38-126); Blood Urea Nitrogen 45 mg/dl (9-20); Calcium 9.9 mg/dl (8.4-10.2); Carbon Dioxide 32 mmol/L (22-30); Chloride 98 mmol/L (98-107); Estimated Creatinine Clearance 50 ml/min; Glucose 108 mg/dl (70-99); Potassium 4.9 mmol/L (3.5-5.1); Sodium 137 mmol/L (135-145); Total Bilirubin 1.2 mg/dl (0.2-1.3); eGFR > 60.00
[2024-01-26 10:19] LABS: NT-proBNP 4590 pg/ml
[2024-01-26 10:28] LABS: Total Protein 6.2 g/dl (6.3-8.2)
[2024-02-02] VITALS (14 sets, daily range): BP systolic 103–152; BP diastolic 42–73; BMI 25.6
[2024-02-02 10:46] LABS: ACT-LR - POC 277 Seconds (116-155)
--- NOTE | 2024-02-02 11:08 | ITS.CL.PN ---
Patient Ombudsperson - Procedure Note
Procedure
Procedure Note:
Watchman implantation
Date: February 02, 2024
Referring: Dr. Miguel A Valero
Procedure note:
After informed consent and patient safety timeout the patient had direct right femoral vein access with an 8 Kyrgyz 9 Kyrgyz sheath under ultrasound guidance. After heparinization a 10 Kyrgyz steerable sheath and [place] needle were utilized
to access the left atrium with a safe septal wire. Over ProTrac wire the steerable sheath was exchanged to a watchman sheath and the pigtail catheter was advanced over the ProTrac wire. The pigtail catheter was engaged into the left atrial
appendage and venogram demonstrated 25 mm ostium with a anterior lobe. Utilizing a more anterior approach with clockwise torque the 31 mm device was delivered without leak and 10 to 30% compression meeting Pass criteria. The device was deployed
and no leak was noted. Once sheaths and catheters removed to the right atrium heparin was stopped and protamine was given. Vascade vascular closure was utilized. The patient tolerated the procedure well and was brought to the post care unit in
stable condition. Please see separate note from Dr. Cueva for full details of procedure.
Transseptal diesel roller operator: Kimber
Device delivery: Hammad
--- NOTE | 2024-02-02 11:18 | WATCHMAN.MD ---
Watchman Implant
-
ELECTROPHYSIOLOGY/INTERVENTIONAL PROCEDURE REPORT
Date of Procedure: February 02, 2024
Referring: Miguel A Valero MD
Assisting Physician: Shaun Quiroga
PROCEDURES:
1. Left atrial appendage occlusion device using 31 mm WATCHMAN FLX Pro device
2. Intracardiac echocardiography
3. Ultrasound-guided right common femoral venous access
INDICATION: Previous intracranial hemorrhage, atrial fibrillation warranting chronic anticoagulation.
ACCESS: Right common femoral vein, 16Fr sheath and 9Fr. sheaths, under US guidance using micropunture kit.
HEMODYNAMICS : (mmHg)
LA Pressure: 18
PROCEDURE REPORT:
After informed consent and patient safety 'Timeout' the patient was intubated and sedated by the anesthesiology service. Under ultrasound guidance, the right femoral vein was accessed by Dr. Shaun Quiroga twice for transseptal puncture and
intracardiac ultrasound, respectively. Concomitant transesophageal echocardiogram was performed by Dr. Jon Feldman
Baseline intracardiac ultrasound demonstrated no pericardial effusion and baseline SHEMAR images revealed a trace pericardial effusion.
After ruling out a left atrial appendage thrombus, the patient was heparinized for an ACT between 350-400 seconds and under SHEMAR and intracardiac ultrasound guidance transseptal puncture was performed by Dr. Sujey Cueva using an Agilis catheter
and 71cm BRK trans-septal needle in a mid position on the inferior-superior axis and a mid position on the anterior-posterior axis. Left atrial pressure was 18 millimeters mercury.
Once transseptal puncture was performed over a [place] wire parked in the left superior pulmonary vein, the Agilis sheath was exchanged for a watchman access double curve sheath. A 5 Monegasque pigtail catheter was placed into the left atrial appendage
and an appendage gram was performed using intravenous contrast dye demonstrating a chicken wing type anatomy that was suitable likely for a 31 mm WATCHMAN FLX device.
After appropriately prepping the device, Dr. Sujey Cueva successfully deployed a 31 mm WATCHMAN FLX device. Device showed excellent positioning with no leaks post device deployment. 11 to 21 % compression was noted in the device after deployment.
A 'tug-test' was performed demonstrating stability of the device. Given PASS criteria were met, the device was then released successfully by Dr. Sujey Cueva.
Post procedure, SHEMAR imaging demonstrated no new or worse pericardial effusion. Sheaths and catheters were removed from the left atrium and heparin was reversed using protamine. Catheters removed from the femoral vein with two Vascade Closure devices
applied. The patient tolerated the procedure well.
RADIATION SUMMARY: Fluoro Time (min): 14.1, Dose (mGy): 98.18, DAP (Gy.cm2) : 11.2
Closure Device: Two Vascade Closure devices
CONCLUSIONS
1. Successful deployment of 31 mm WATCHMAN FLX Pro device under SHEMAR and ICE guidance.
RECOMMENDATIONS
1. Plan for daily Eliquis 5 mg twice daily for the next 6 weeks.
2. 45-day SHEMAR post procedure to assess stability of device and rule out any jack-device leaks.
Copy to: Miguel A Valero MD
Sujey Cueva MD, [facility], [facility]
--- NOTE | 2024-02-02 12:30 | PTCARENOTE ---
Rec'd report from [place] in the label tacker; Rec'd pt AAOx3 w/no c/o CP, SOB, or R groin pain. Pt reporting mild throat pain, rating it 2/10. Pt declined anything for the 'discomfort'; Pt given some ice chips & juice. Pt's R groin site w/dressing intact
w/sm area of marked shadowing of sanguineous drainage. No signs or symptoms of hematoma. Pedal pulses + by Doppler. VS relatively stable w/HR in the 40's-50's w/pt in Afib w/R BBB on telemetry monitoring. Pt's HR dipped briefly to as low as 36 after
arriving to the floor. Pt does have PMH of sleep apnea, but reports he 'hasn't needed to use a CPAP machine for years since losing 50 lbs'. Pt placed O2 via NC at 2L for bradycardia while anesthesia is wearing off. Bedrest orders discussed w/pt &
pt verbalized understanding that he cannot get OOB and needs to lie flat until 1305. Pt assisted by his friend w/calling in lunch order. Pt w/call romero within reach & plan of care ongoing.
--- NOTE | 2024-02-02 14:31 | CM ---
spoke to pt in room, he is prev indep, lives alone in a ranch home with 1 step to enter. he has a cane he uses and a walker and WC to use if needed. plan is for dc to home when medically stable.
[2024-02-02] MEDS: LASIX 40 MG PO (16:10)
--- NOTE | 2024-02-02 19:17 | PTCARENOTE ---
Pt. received at change at shift. Pt. seen in room, sitting up in chair. Pt. AOx3 with no complaints at this time. VS WNL. R groin site checked, site intact with marked serosanguineous drainage, site soft. Continuing to monitor pt at this time.
[2024-02-02] MEDS: ELIQUIS 5 MG PO (20:09)
[2024-02-02] MEDS: XANAX 0.25 MG PO (21:09)
[2024-02-02] MEDS: COZAAR 50 MG PO (21:09)
[2024-02-03 03:11] VITALS: BP 123/56
[2024-02-03 03:25] VITALS: BMI 25.7
[2024-02-03 03:42] LABS: Hematocrit 32.8 % (39.0-52.0); Hemoglobin 11.3 g/dL (13.0-18.0); Mean Corp Hgb Conc. 34.5 g/dL (33.0-37.0); Mean Corpuscular Hgb 31.3 pg (27.0-31.0); Mean Corpuscular Volume 90.9 fL (80.0-94.0); Red Blood Cell Count 3.61 10^6/uL (4.70-6.10); Red Cell Dist. Width 13.1 % (11.5-14.5); White Blood Cell Count 4.5 10^3/uL (4.8-10.8)
[2024-02-03 03:55] LABS: Mean Platelet Volume 11.6 fL (7.4-10.4); Platelet Count 83 10^3/uL (130-400)
[2024-02-03 04:03] LABS: Blood Urea Nitrogen 33 mg/dl (9-20); Calcium 9.2 mg/dl (8.4-10.2); Carbon Dioxide 25 mmol/L (22-30); Chloride 103 mmol/L (98-107); Estimated Creatinine Clearance 62 ml/min; Glucose 149 mg/dl (70-99); Potassium 4.6 mmol/L (3.5-5.1); Sodium 135 mmol/L (135-145); eGFR > 60.00
[2024-02-03 06:37] VITALS: BP 128/64
--- NOTE | 2024-02-03 07:25 | W.PN.CARDCBS ---
Addendum entered and electronically signed by Shaun Quiroga MD 02/03/24 09:36:
Patient seen and examined
Agree with MEDIA PRODUCER note and assessment
Agree with MEDIA PRODUCER plan
Exam:
Alert and orient x 3
Nonfocal neurologically
Cor irregular on telemetry
No respiratory distress
No extremity edema
Remainder of examination per MEDIA PRODUCER note
Impression:
Permanent Afib
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
HTN
CAD/PCI LAD BMS 1998
Hyperlipidemia
EMILY/CPAP
RBBB
chronic HFpEF
GERD
Gout
Depression
DDD
IgA deficiency
Plan:
post 31mm Watchman device implant 02/02/24
R eye bruise intraprocedural, stable less swollen this am
R fem site with some drainage, dressing removed, soft, no HT
tele Afib with SVR
OAC Eliquis 5 bid
continue nebivolol, losartan, lasix
reinforced C&DB
f/u SHEMAR in 45 days
f/u DCA in 1 mo
home today
Addendum entered and electronically signed by DARIUS Abdul 02/03/24 09:24:
mild chronic pancytopenia noted on labs this am
Original Note:
Today's Communication / Plan
-
stable for d/c home
Impression / Plan
-
PCP: Yashira Contreras MD
CDY: Miguel A Valero MD
Impression:
Permanent Afib
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
HTN
CAD/PCI LAD BMS 1998
Hyperlipidemia
EMILY/CPAP
RBBB
chronic HFpEF
GERD
Gout
Depression
DDD
IgA deficiency
Plan:
post 31mm Watchman device implant 02/02/24
R eye bruise intraprocedural, stable less swollen this am
R fem site with some drainage, dressing removed, soft, no HT
tele Afib with SVR
OAC Eliquis 5 bid
continue nebivolol, losartan, lasix
reinforced C&DB
f/u SHEMAR in 45 days
f/u DCA in 1 mo
home today
Progress Note - Supervisor Instrument Mechanics
Subjective
Date of Service: February 03, 2024
no cp, sob
Objective
Labs:
02/03/24 03:21
02/03/24 03:21
Labs
Hgb 11.3 g/dL (13.0-18.0) L 02/03/24 03:21
Hct 32.8 % (39.0-52.0) L 02/03/24 03:21
Plt Count 83 10^3/uL (130-400) L 02/03/24 03:21
PT 21.0 Sec (11.4-14.6) H 01/26/24 09:26
INR 1.83 01/26/24 09:26
Sodium 135 mmol/L (135-145) 02/03/24 03:21
Potassium 4.6 mmol/L (3.5-5.1) 02/03/24 03:21
BUN 33 mg/dl (9-20) H 02/03/24 03:21
Creatinine 0.8 mg/dL (0.7-1.3) 02/03/24 03:21
Glucose 149 mg/dl (70-99) H 02/03/24 03:21
Vital Signs and I&O:
Vital Signs
Temp Pulse Resp BP Pulse Ox
97.8 F 53 18 128/64 100
02/03/24 06:33 02/03/24 06:37 02/03/24 06:33 02/03/24 06:37 02/03/24 06:37
Vital Signs
Temp Pulse Resp BP Pulse Ox
97.8 F 53 18 128/64 100
02/03/24 06:33 02/03/24 06:37 02/03/24 06:33 02/03/24 06:37 02/03/24 06:37
Intake & Output
02/01/24 02/02/24 02/03/24 02/04/24
06:59 06:59 06:59 06:59
Intake Total 1700 / 1700
Output Total 1350 / 1350
Balance 350 / 350
Physical Exam
Physical Exam
NAD< AOX3
S1, s2, irreg irreg
bibasilar crackles, cleared with deep inspiration, non labored
SNTND bsx4
R fem site with drainage on dressing, removed, no active drainage, no HT, soft
[2024-02-03] MEDS: PROSCAR 5 MG PO (08:32)
[2024-02-03] MEDS: LIPITOR 80 MG PO (08:32)
[2024-02-03] MEDS: PROTONIX 40 MG PO (08:32)
[2024-02-03] MEDS: ELIQUIS 5 MG PO (08:32)
[2024-02-03] MEDS: FLUSH (NSS) 1 FLUSH IV (08:33)
[2024-02-03] MEDS: LASIX 40 MG PO (08:41)
--- NOTE | 2024-02-03 09:05 | PN.CDI ---
CDI
- -
CDI:
Physician Documentation Request
Admit Date: 02/02/24 07:49
Dear Cardiology,
Clinical Indicators:
Patient admitted with permanent atrial fibrillation; s/p Watchman implant 02/01.
02/02 PN, 'R eye bruise intraprocedural'
WBC, RBC, Plt count:
02/03/24
03:21
WBC 4.5 L
RBC 3.61 L
Plt Count 83 L
Based on the above, could you clarify in the progress notes, the appropriate diagnosis, if significant, that supports the above lab abnormalities and additional evaluation/monitoring:
Pancytopenia
Abnormal lab values, clinically insignificant
Other, please specify
Use of terms such as suspected, likely, concern for, or probable (associated with a specific diagnosis that is being evaluated, monitored, or treated as if it exists) are acceptable and can be coded in the inpatient setting, when documented at the
time of discharge.
Thank you,
Germania Rene RN BSN
CDI Specialist
available via [employer] text
Please use your independent medical judgment in providing your response.
--- NOTE | 2024-02-03 09:10 | PTCARENOTE ---
Received patient this morning oob in the bathroom. Dressing right groin had serosanguineous drainage contained in the dressing, but area soft with pulses faint but palpable. Inner right eye is ecchymotic purple/black, patient states this occurred
during surgery with anesthesia, but offers no complaints. Patient was seen by Dr. Quiroga and then Demetra Amrao NP and dressing right groin was removed. Puncture site is now TRANSPLANT SURGEON and is not draining. Patient is for discharge today.
--- NOTE | 2024-02-03 09:46 | W.DS.TRANS ---
DC Summary - Presser Automatic
-
Discharge Instructions:
Discharge Diagnosis/Procedures Watchman device implant
Diet Low Cholesterol
Driving Restrictions No driving for 24 hours
Others Tests Follow Up SHEMAR is scheduled at [facility] on 03/22/2024. You will receive a call
the day prior with arrival time. Please take
your eliquis the morning of the procedure.
Instructions:
Stand-Alone Forms: DC Instructions- Cath/EP Lab
Changes to Home Medications: No
Discharge Medications:
DC Medications w/original date entered in [facility]
atorvastatin 80 mg tablet 80 mg PO DAILY High cholesterol 10/30/17
cholecalciferol (vitamin D3) 50 mcg (2,000 unit) tablet (Vitamin D3) 50 mcg PO DAILY Supplement 08/07/23
finasteride 5 mg tablet 5 mg PO DAILY prostate issues 08/07/23
omeprazole 40 mg capsule,delayed release 40 mg PO DAILY Gastrointestinal Issue 08/07/23
vit C 250 mg-vit E 90 mg-zinc 40 mg-copper 1 [id number] capsule (PreserVision AREDS-2) 1 tab PO BID Supplement 08/07/23
ascorbic acid (vitamin C) 1,000 mg tablet (Vitamin C) 1,000 mg PO DAILY Supplement 08/28/23
fluticasone propionate 50 mcg/actuation nasal spray,suspension 2 spray intranasal DAILY PRN congestion 08/28/23
lidocaine 5 % topical patch 1 patch topical DAILY PRN apply to back (L4-L5) 08/28/23
alprazolam 0.25 mg tablet 0.25 mg PO HS #7 tabs 09/10/23
zinc sulfate 50 mg zinc (220 mg) capsule 220 mg (4.4 x 50 mg zinc (220 mg)) PO DAILY #30 caps 09/10/23
apixaban 5 mg tablet (Eliquis) 5 mg PO BID 02/02/24
furosemide 40 mg tablet 40 mg PO 0800,1500 02/02/24
losartan 50 mg tablet 50 mg PO HS 02/02/24
magnesium hydroxide 400 mg/5 mL oral suspension (Milk of Magnesia) 400 mg PO DAILY PRN constipation 02/02/24
nebivolol 5 mg tablet 5 mg PO HS 02/02/24
nitroglycerin 0.4 mg sublingual tablet (Nitrostat) 0.4 mg sublingual Q5M PRN chest pain 02/02/24
peg 400-propylene glycol (PF) 0.4 %-0.3 % eye drops in a dropperette (Systane (PF)) 1 drp ophthalmic (eye) 6XD PRN dry eye 02/02/24
Home Medication Changes
Pending Results: No
--- NOTE | 2024-02-03 10:25 | PTCARENOTE ---
Reviewed discharge instructions and follow up appointments with the patient and he stated his understanding. Patient discharged home with his friend.
== END 2024-02-03 10:26 | disposition home or self-care (01) | DRG 274 ==
LOC: IVU 07:49
PROVIDERS: Internal Medicine Cardiovascular Disease; Nurse Practitioner; ADMITTING PHYSICIAN Internal Medicine Interventional Cardiology; FAMILY PHYSICIAN Internal Medicine
PROC: B24BZZ4 Ultrasonography of Heart with Aorta, Transesophageal (ICD-10-PCS; 2024-02-02)
PROC: 02L73DK Occlusion of Left Atrial Appendage with Intraluminal Device, Percutaneous Approach (ICD-10-PCS; 2024-02-02)
DX: I48.21 Permanent atrial fibrillation (principal); Z00.6 Encounter for examination for normal comparison and control in clinical research program; D61.818 Other pancytopenia; D80.2 Selective deficiency of immunoglobulin A [IgA]; I50.32 Chronic diastolic (congestive) heart failure; I11.0 Hypertensive heart disease with heart failure; I25.10 Atherosclerotic heart disease of native coronary artery without angina pectoris; E78.5 Hyperlipidemia, unspecified; G47.33 Obstructive sleep apnea (adult) (pediatric); I45.10 Unspecified right bundle-branch block; K21.9 Gastro-esophageal reflux disease without esophagitis; M10.9 Gout, unspecified; F32.A Depression, unspecified; Z86.73 Personal history of transient ischemic attack (TIA), and cerebral infarction without residual deficits; Z98.61 Coronary angioplasty status; Z79.01 Long term (current) use of anticoagulants
CPT/HCPCS: 33340; 36415; 80048; 80053; 83880; 85025; 85027; 85347; 85610; 86850; 86900; 86901; 87070; 93005; 93355; C1759; C1760; C1766; C1892; C1894; Q9967

== ENCOUNTER 2024-03-22 07:16 | Day surgery (SDC) | payer MEDICARE, BC, SELFPAY | END 2024-03-22 10:25 | disposition home or self-care (01) | LOC: CATH 07:16 | PROVIDERS: ATTENDING PHYSICIAN Nuclear Medicine Nuclear Cardiology; FAMILY PHYSICIAN Internal Medicine; OTHER PHYSICIAN Internal Medicine Cardiovascular Disease | DX: Z45.09 Encounter for adjustment and management of other cardiac device (principal); I08.3 Combined rheumatic disorders of mitral, aortic and tricuspid valves; I48.20 Chronic atrial fibrillation, unspecified; I25.10 Atherosclerotic heart disease of native coronary artery without angina pectoris; I11.0 Hypertensive heart disease with heart failure; I50.32 Chronic diastolic (congestive) heart failure; I25.2 Old myocardial infarction; E78.00 Pure hypercholesterolemia, unspecified; I45.10 Unspecified right bundle-branch block; K21.9 Gastro-esophageal reflux disease without esophagitis; G47.33 Obstructive sleep apnea (adult) (pediatric); Z79.01 Long term (current) use of anticoagulants; Z79.02 Long term (current) use of antithrombotics/antiplatelets; Z79.82 Long term (current) use of aspirin | CPT/HCPCS: 93312; 93320; 93325 ==

== ENCOUNTER 2024-04-08 16:00 | Emergency (ER) | payer MEDICARE, BC, SELFPAY ==
[2024-04-08 16:12] VITALS: BP 128/72
--- NOTE | 2024-04-08 16:15 | ED.GENMED ---
ED Provider Triage
<Fabien Lang PA-C - Last Filed: 04/08/24 16:16>
-
Patient seen by provider in Triage?: Seen in Triage
Attestation: A medical screening examination has been initiated by a qualified medical provider. Based on the assessment performed at this time, it has been determined that an emergent medical condition may exist and the patient has been informed
that further medical evaluation and possible additional diagnostic testing may be needed.
HPI: 83-year-old male present emergency department for evaluation of atraumatic left shoulder pain x 3 days. Patient notes pain worsens with range of motion. Denies any other symptoms. Notes that he had previous rotator cuff surgery to the right
arm and the left arm does feel similar. EKG and x-ray were ordered.
GENERAL: Alert , in no apparent distress
EYE: No visual abnormalities.
NECK: Trachea midline
ENT: No visible abnormalities.
LUNGS: No acute respiratory distress
NEUROLOGICAL: Alert and oriented
SKIN: Skin intact. No visible changes.
MUSCULOSKELETAL: Moving extremities normally
PSYCH: Normal and appropriate interaction.
This is a medical evaluation conducted in person to initiate diagnostic evaluation and provide initial therapeutics. Please see further documentation by the treating clinician.
History of Present Illness
<Fabien Lang PA-C - Last Filed: 04/08/24 16:16>
General
Chief Complaint: Musculo-Skeletal Complaint
Time Seen by Provider: 04/08/24 19:47
<Evan Don PA-C - Last Filed: 04/09/24 01:57>
History of Present Illness
History of Present Illness:
83-year-old male with history of chronic A-fib currently on aspirin and Plavix presents to the emergency department for evaluation of left shoulder pain for the past 2 days. States the pain began gradually without obvious injury. Pain does not
radiate to the chest, denies shortness of breath. Has a history of right rotator cuff disease and feels this is a similar condition on the left. Having difficulty moving the arm due to pain. Also reports right hand discomfort as a result of
trying to wring out a towel.
Past History
<Fabien Lang PA-C - Last Filed: 04/08/24 16:16>
Past History
ED Past Medical History: Arrthythmia (PAF), CAD (Stents), GERD, HTN, Hypercholesterolemia, [place], Psychiatric (Anxiety) and Other (Raynaud's disease, Right BBB Cerebral hemorrhage, Chronic venous insufficiency); Negative NIDDM
ED Past Surgical History: Cardiac (PTCA with stent to proximal LAD 1998, A. fib cardioversion March 2010) and Other (Left lower extremity there is vein stripping)
Social History
Tobacco: Former smoker (Cigar occasionally and didn't inhale)
Alcohol: None
Drug: None
Personal:
Living: with family
Employment: Retired
Family History
Family History: Hypertension; Negative Sudden
Review of Systems
<Evan Don PA-C - Last Filed: 04/09/24 01:57>
Review of Systems
Allergies reviewed?: Yes
All Other Systems: ROS reviewed and negative except as documented in HPI and ROS
Phy Exam
<Evan Don PA-C - Last Filed: 04/09/24 01:57>
Physical Exam
Physical Exam:
GEN: Well appearing, NAD, WDWN
HEENT: Oral mucosa moist, no scleral icterus
Cardiac: Regular rate
Lung: No respiratory distress, no tachypnea
MSK: No gross deformity or injuries. Passive range of motion of the left shoulder is pain-free, active range of motion elicits pain in all de la torre of motion. The right hand appears atraumatic with normal range of motion, patient reports diffuse
pain to the palm in all 5 extremities
Skin: Good color, no pallor or jaundice, no rashes
Neuro: AO x3, moves all extremities freely
Psych: Calm, cooperative
Course
<Fabien Lang PA-C - Last Filed: 04/08/24 16:16>
Orders/Labs/Results
Orders:
Orders
04/08/24 16:01
Electrocardiogram (*1) Urgent
Reason for Study: Other
Other Reason for Exam: arm pain
EKG- Treatment ONCE
04/08/24 16:15
CR Shoulder - Left Min 2 View* Urgent
Comment:
Reason For Exam: pain, decreased ROM
04/08/24 19:59
Tramadol HCl [Ultram] 50 mg PO NOW STA
04/08/24 21:01
CR Hand - Right Min 3 Views Urgent
Comment:
Reason For Exam: injury
04/08/24 22:33
COVID-19 Antigen Urgent
Source: Nasal Swab
Urinalysis Reflex To Culture Urgent
Date Specimen was Collected: 04/08/24
Time Specimen was Collected: 22:31
04/08/24 22:39
Acetaminophen [Tylenol] 1,000 mg PO NOW STA
04/08/24 23:23
Complete Blood Count/With Diff Urgent
Comprehensive Metabolic Panel Urgent
04/09/24 00:08
0.9% Sodium Chloride 500 ml [Nss] 500 ml IV BOLUS
Abnormal Lab Results
04/08/24
23:23
RBC 3.50 L 10^6/uL
(4.70-6.10)
Hgb 10.4 L g/dL
(13.0-18.0)
Hct 30.0 L %
(39.0-52.0)
RDW 14.6 H %
(11.5-14.5)
Plt Count 118 L 10^3/uL
(130-400)
MPV 11.1 H fL
(7.4-10.4)
Absolute Lymphs (auto) 0.6 L 10^3/uL
(1.2-3.4)
Absolute Monos (auto) 1.0 H 10^3/uL
(0.1-0.6)
Lymphocytes % 11.8 L %
(20.5-51.1)
Monocytes % 18.6 H %
(1.7-9.3)
BUN 37 H mg/dl
(9-20)
Glucose 146 H mg/dl
(70-99)
Total Bilirubin 1.7 H mg/dl
(0.2-1.3)
Alkaline Phosphatase 183 H U/L
(38-126)
Total Protein 6.0 L g/dl
(6.3-8.2)
04/08/24 23:23
04/08/24 23:23
Vital Signs
Initial and Last Documented VS:
Initial Vital Signs
Temp Pulse Resp BP Pulse Ox
98 F 81 16 128/72 100
04/08/24 16:12 04/08/24 16:12 04/08/24 16:12 04/08/24 16:12 04/08/24 16:12
Last Documented Vital Signs
Temp Pulse Resp BP Pulse Ox
98.7 F 74 17 94/43 93
04/09/24 00:01 04/09/24 01:32 04/09/24 01:32 04/09/24 01:33 04/09/24 01:30
Rolandlt;Evan Don PA-C - Last Filed: 04/09/24 01:57>
Orders/Labs/Results
Orders:
Orders
04/08/24 16:01
Electrocardiogram (*1) Urgent
Reason for Study: Other
Other Reason for Exam: arm pain
EKG- Treatment ONCE
04/08/24 16:15
CR Shoulder - Left Min 2 View* Urgent
Comment:
Reason For Exam: pain, decreased ROM
04/08/24 19:59
Tramadol HCl [Ultram] 50 mg PO NOW STA
04/08/24 21:01
CR Hand - Right Min 3 Views Urgent
Comment:
Reason For Exam: injury
04/08/24 22:33
COVID-19 Antigen Urgent
Source: Nasal Swab
Urinalysis Reflex To Culture Urgent
Date Specimen was Collected: 04/08/24
Time Specimen was Collected: 22:31
04/08/24 22:39
Acetaminophen [Tylenol] 1,000 mg PO NOW STA
04/08/24 23:23
Complete Blood Count/With Diff Urgent
Comprehensive Metabolic Panel Urgent
04/09/24 00:08
0.9% Sodium Chloride 500 ml [Nss] 500 ml IV BOLUS
Abnormal Lab Results
04/08/24
23:23
RBC 3.50 L 10^6/uL
(4.70-6.10)
Hgb 10.4 L g/dL
(13.0-18.0)
Hct 30.0 L %
(39.0-52.0)
RDW 14.6 H %
(11.5-14.5)
Plt Count 118 L 10^3/uL
(130-400)
MPV 11.1 H fL
(7.4-10.4)
Absolute Lymphs (auto) 0.6 L 10^3/uL
(1.2-3.4)
Absolute Monos (auto) 1.0 H 10^3/uL
(0.1-0.6)
Lymphocytes % 11.8 L %
(20.5-51.1)
Monocytes % 18.6 H %
(1.7-9.3)
BUN 37 H mg/dl
(9-20)
Glucose 146 H mg/dl
(70-99)
Total Bilirubin 1.7 H mg/dl
(0.2-1.3)
Alkaline Phosphatase 183 H U/L
(38-126)
Total Protein 6.0 L g/dl
(6.3-8.2)
04/08/24 23:23
04/08/24 23:23
Vital Signs
Initial and Last Documented VS:
Initial Vital Signs
Temp Pulse Resp BP Pulse Ox
98 F 81 16 128/72 100
04/08/24 16:12 04/08/24 16:12 04/08/24 16:12 04/08/24 16:12 04/08/24 16:12
Last Documented Vital Signs
Temp Pulse Resp BP Pulse Ox
98.7 F 74 17 94/43 93
04/09/24 00:01 04/09/24 01:32 04/09/24 01:32 04/09/24 01:33 04/09/24 01:30
<Evan Don PA-C - Last Filed: 04/09/24 01:57>
MDM/Problems Addressed
MDM/Problems Addressed:
Initially the patient was evaluated for nontraumatic left shoulder pain and minimal atraumatic right hand pain. Likely acute inflammatory pain resulting from arthritis, history of tramadol as he cannot take NSAIDs due to anticoagulant use, pain
improved. On reexamination before discharge the patient was noted to be febrile and thus was evaluated further with labs, COVID swab, and urinalysis these labs were unremarkable. The patient did have mild hypotension after defervesced since that
was treated with IV fluids. Fever is likely a self-limited viral syndrome. Will remain in the ER until his ride arrives later this morning.
<Eavn Don PA-C - Last Filed: 04/09/24 01:57>
*Critical Care Note
Total Time (30-74mins, 75-104mins- exclusive of procedures): Not Applicable
ED Attending Note
<Fabien Lang PA-C - Last Filed: 04/08/24 16:16>
-
Portions of this chart may have been created with voice recognition software.� Occasional wrong word or��sound alike� substitutions may have occurred due to the inherent limitations of voice recognition software.
Discharge Plan
Departure
Patient Disposition: Home (Routine Discharge)
Date of Disposition: 04/08/24
Time of Disposition: 21:52
Patient with high blood pressure during this ER visit?: No
Discharge Problem:
Sprain of hand, right, Acute pain of left shoulder, Acute febrile illness
Instructions: Fever, Adult (DC)
Prescriptions:
New
tramadol 50 mg tablet
50 mg PO Q8H PRN (Reason: Pain) Qty: 10 0RF
No Action
atorvastatin 80 MG tablet
80 mg PO DAILY
omeprazole 40 mg Capsule,Delayed Release(Dr/Ec)
20 mg PO DAILY
finasteride 5 mg Tablet
5 mg PO DAILY
cholecalciferol (vitamin D3) [Vitamin D3] 50 mcg (2,000 unit) Tablet
50 mcg PO DAILY
PreserVision AREDS-2 250-90-40-1 mg Capsule
1 tab PO BID
ascorbic acid (vitamin C) [Vitamin C] 1,000 mg Tablet
1,000 mg PO DAILY
lidocaine 5 % Adhesive Patch,Medicated
1 patch TOPICAL DAILY PRN (Reason: apply to back (L4-L5))
fluticasone propionate 50 mcg/actuation [place],Suspension
2 spray INTRANASAL DAILY PRN (Reason: congestion)
furosemide 40 mg Tablet
40 mg PO 1400
nitroglycerin [Nitrostat] 0.4 mg Tablet, Sublingual
0.4 mg SUBLINGUAL Q5M PRN (Reason: chest pain)
Systane (PF) 0.4-0.3 % Dropperette
1 drp OPHTHALMIC (EYE) 6XD PRN (Reason: dry eye)
nebivolol 5 mg Tablet
5 mg PO HS
furosemide 80 mg Tablet
80 mg PO DAILY AT 0700
clopidogrel [Plavix] 75 mg tablet
75 mg PO DAILY Qty: 30 5RF
aspirin 81 mg capsule
81 mg PO DAILY Qty: 30 11RF
alprazolam 0.25 mg Tablet
0.25 mg PO HS Qty: 7 0RF
zinc sulfate 50 mg zinc (220 mg) Capsule
220 mg PO DAILY Qty: 30 0RF
Referrals:
NONE,* [Family Provider] -
Activity Restrictions/Additional Instructions:
Follow-up with your orthopedist as we discussed. If your fever symptoms worsen or you develop chest pain or shortness of breath return to the emergency department
Interventions
Interventions:
*Risk Screen - Suicide Last Done: 04/08/24 18:45
*General Assessment Last Done: 04/08/24 18:45
*Neglect/Abuse Screening Last Done: 04/08/24 18:45
ED-Musculoskeletal Assessment Last Done: 04/08/24 21:59
Discharge Date and Time
Print Language: UKRAINIAN
[2024-04-08] MEDS: ULTRAM 50 MG PO (20:04)
[2024-04-08 20:29] VITALS: BP 144/80
[2024-04-08] MEDS: TYLENOL 1000 MG PO (22:45)
[2024-04-08 22:49] LABS: Urine Albumin Trace (Neg - Trace); Urine Bilirubin Negative (Negative); Urine Character Clear (Clear); Urine Color Yellow; Urine Glucose Negative (Negative); Urine Ketone Negative (Negative); Urine Leukocyte Negative (Negative); Urine Nitrite Negative (Negative); Urine Occult Blood Negative (Negative); Urine Specific Gravity 1.005 (<1.030); Urine Urobilinogen Negative (Neg - 1+)
[2024-04-08 22:57] VITALS: BP 112/63
[2024-04-08 23:03] LABS: COVID-19 Antigen Negative (Negative)
[2024-04-08 23:37] LABS: % Basophils 0.6 % (0-2); % Eosinophils 0.7 % (0-6); % Immature Granulocytes 0.2 % (0-0.5); % Lymphocytes 11.8 % (20.5-51.1); % Monocytes 18.6 % (1.7-9.3); % Neutrophils 68.1 % (42.2-75.2); Absolute Lymphocytes 0.6 10^3/uL (1.2-3.4); Absolute Neutrophils 3.7 10^3/uL (1.4-6.5); Hemoglobin 10.4 g/dL (13.0-18.0); Mean Corp Hgb Conc. 34.7 g/dL (33.0-37.0); Mean Corpuscular Hgb 29.7 pg (27.0-31.0); Mean Corpuscular Volume 85.7 fL (80.0-94.0); Mean Platelet Volume 11.1 fL (7.4-10.4); Nucleated Red Blood Cells % 0 % (-); Platelet Count 118 10^3/uL (130-400); Red Cell Dist. Width 14.6 % (11.5-14.5); White Blood Cell Count 5.4 10^3/uL (4.8-10.8)
[2024-04-09] VITALS: BP 99/51
[2024-04-09 00:19] LABS: ALT (SGPT) 33 U/L (0-50); AST (SGOT) 32 U/L (17-59); Albumin 3.9 g/dl (3.5-5.0); Alkaline Phosphatase 183 U/L (38-126); Blood Urea Nitrogen 37 mg/dl (9-20); Calcium 9.1 mg/dl (8.4-10.2); Carbon Dioxide 25 mmol/L (22-30); Chloride 101 mmol/L (98-107); Glucose 146 mg/dl (70-99); Potassium 3.9 mmol/L (3.5-5.1); Sodium 138 mmol/L (135-145); Total Bilirubin 1.7 mg/dl (0.2-1.3); eGFR > 60.00
[2024-04-09] MEDS: NSS 500 IV (00:30)
[2024-04-09 01:33] VITALS: BP 94/43
[2024-04-09 02:28] VITALS: BP 113/57
== END 2024-04-09 02:31 | disposition home or self-care (01) ==
LOC: EMR 16:00
PROVIDERS: Physician Assistant; EMERGENCY PHYSICIAN Student in an Organized Health Care Education/Training Program
DX: S63.91XA Sprain of unspecified part of right wrist and hand, initial encounter (principal); M25.512 Pain in left shoulder; R50.9 Fever, unspecified; X58.XXXA Exposure to other specified factors, initial encounter; I48.20 Chronic atrial fibrillation, unspecified; I25.10 Atherosclerotic heart disease of native coronary artery without angina pectoris; I10 Essential (primary) hypertension; F41.9 Anxiety disorder, unspecified; E78.00 Pure hypercholesterolemia, unspecified; I25.2 Old myocardial infarction; I73.00 Raynaud's syndrome without gangrene; I87.2 Venous insufficiency (chronic) (peripheral); Z79.02 Long term (current) use of antithrombotics/antiplatelets; Z79.82 Long term (current) use of aspirin; Z82.49 Family history of ischemic heart disease and other diseases of the circulatory system; Z86.73 Personal history of transient ischemic attack (TIA), and cerebral infarction without residual deficits; Z87.891 Personal history of nicotine dependence; Z95.5 Presence of coronary angioplasty implant and graft
CPT/HCPCS: 99283; 73030; 73130; 80053; 81003; 85025; 87811; 93005

== ENCOUNTER 2024-04-11 14:31 | Emergency (ER) | payer MEDICARE, BC, SELFPAY ==
[2024-04-11 14:41] VITALS: BP 142/80
--- NOTE | 2024-04-11 14:45 | ED.MUSCINJ ---
HPI-Injury
<Logan Lay PA-C - Last Filed: 04/11/24 17:11>
General
Chief Complaint: Musculo-Skeletal Complaint
Time Seen by Provider: 04/11/24 16:06
<Janelle Delgadillo FOUNDRY OPERATOR - Last Filed: 04/11/24 23:21>
General
Source: patient and family
Exam Limitations: none
Nursing documentation reviewed up to this point in time: agreed with
History of Present Illness-Injury
Initial Injury comments:
83-year-old male, with history of chronic A-fib currently on aspirin and Plavix. right-handed, presents with severe right shoulder pain that started 3 days ago and gradually worsened. States pain 10/10 even when still. No recollection of overuse or
injury. Had rotator cuff surgery Jul 2023 and had no significant pain after that.
Patient was here 3 days ago with left shoulder pain, treated for arthritis with Toradol and pain subsided within 2 days. Denies right shoulder pain now.
ED Provider Triage
<Logan Lay PA-C - Last Filed: 04/11/24 17:11>
-
Patient seen by provider in Triage?: Seen in Triage
83-year-old male presents for evaluation of right shoulder pain. He had rotator cuff surgery several months ago and persistent have significant pain. He did not speak with his surgeon. He came here for evaluation. He was here 3 days ago found to
have a fever at that time. He is suspected to have a viral illness then. He is afebrile here in triage. Vital signs are stable. Will hold off on imaging at this time.
Past History
<Logan Lay PA-C - Last Filed: 04/11/24 17:11>
Past History
ED Past Medical History: Arrthythmia (PAF), CAD (Stents), GERD, HTN, Hypercholesterolemia, [place], Psychiatric (Anxiety) and Other (Raynaud's disease, Right BBB Cerebral hemorrhage, Chronic venous insufficiency); Negative NIDDM
ED Past Surgical History: Cardiac (PTCA with stent to proximal LAD 1998, A. fib cardioversion March 2010) and Other (Left lower extremity there is vein stripping)
Social History
Tobacco: Former smoker (Cigar occasionally and didn't inhale)
Alcohol: None
Drug: None
Personal:
Living: with family
Employment: Retired
Family History
Family History: Hypertension; Negative Sudden
Review of Systems
<Janelle Delgadillo, FOUNDRY OPERATOR - Last Filed: 04/11/24 23:21>
Review of Systems
Allergies reviewed?: Yes
All Other Systems: ROS reviewed and negative except as documented in HPI and ROS
Constitutional: Denies fever
Respiratory: Denies trouble breathing
Cardiac: Denies chest pain
ABD/GI: Denies abdominal pain or nausea
Musculoskeletal: Reports other (significant pain right shoulder)
Skin: Reports no symptoms
Neurological: Denies weakness or numbness
Phy Exam
<Janelle Delgadillo, FOUNDRY OPERATOR - Last Filed: 04/11/24 23:21>
Physical Exam
Physical Exam:
GENERAL: Moderate distress due to right shoulder pain. A&Ox3.
CONSTITUTIONAL: Afebrile.
EYES: clear, conjunctivae normal
Neck: Supple
ENMT: moist mucus membranes, Pharynx nl
RESPIRATORY: Regular respirations, nonlabored, lungs clear.
CARDIOVASCULAR: Regular rate and rhythm, no murmurs, no rubs.
GI: Soft, nontender, normal BS
MUSCULOSKELETAL: Pain right proximal shoulder and neck areas. Unable to move the shoulder due to pain. Distal n/v intact, sensation intact and equal bilaterally to touch. Well perfused.
SKIN: Warm, dry, pink
PSYCH: Anxious mood and affect. Constant wincing in pain. Well kept, interactive and appropriate
NEUROLOGIC: Awake, alert and oriented. Hand grasps equal.
Injury Course
<Logan Lay PA-C - Last Filed: 04/11/24 17:11>
Orders/Labs/Results
Orders:
Orders
04/11/24 15:59
EKG [Electrocardiogram (*1)] Urgent
Reason for Study: Chest Pain
EKG- Treatment ONCE
04/11/24 16:11
Complete Blood Count/With Diff Urgent
Comprehensive Metabolic Panel Urgent
Troponin I Urgent
04/11/24 16:12
HYDROmorphone [Dilaudid] 1 mg IM NOW STA
04/11/24 16:13
Dexamethasone Pf [Decadron] 10 mg PO NOW STA
CR Shoulder - Right Min 2 View Urgent
Reason For Exam: Severe pain, no known injury
04/11/24 16:16
Dexamethasone Sod Phosphate [Decadron] 10 mg IV NOW STA
Dexamethasone Sod Phosphate [Decadron] 4 mg .ROUTE .STK-MED ONE
Abnormal Lab Results
04/11/24
16:11
RBC 3.81 L 10^6/uL
(4.70-6.10)
Hgb 11.3 L g/dL
(13.0-18.0)
Hct 33.2 L %
(39.0-52.0)
RDW 14.7 H %
(11.5-14.5)
MPV 10.9 H fL
(7.4-10.4)
Absolute Lymphs (auto) 0.6 L 10^3/uL
(1.2-3.4)
Absolute Monos (auto) 1.0 H 10^3/uL
(0.1-0.6)
Lymphocytes % 10.1 L %
(20.5-51.1)
Monocytes % 16.5 H %
(1.7-9.3)
BUN 32 H mg/dl
(9-20)
Glucose 120 H mg/dl
(70-99)
Total Bilirubin 1.6 H mg/dl
(0.2-1.3)
Alkaline Phosphatase 206 H U/L
(38-126)
04/11/24 16:11
04/11/24 16:11
<Janelle Delgadillo FOUNDRY OPERATOR - Last Filed: 04/11/24 23:21>
Orders/Labs/Results
Orders:
Orders
04/11/24 15:59
EKG [Electrocardiogram (*1)] Urgent
Reason for Study: Chest Pain
EKG- Treatment ONCE
04/11/24 16:11
Complete Blood Count/With Diff Urgent
Comprehensive Metabolic Panel Urgent
Troponin I Urgent
04/11/24 16:12
HYDROmorphone [Dilaudid] 1 mg IM NOW STA
04/11/24 16:13
Dexamethasone Pf [Decadron] 10 mg PO NOW STA
CR Shoulder - Right Min 2 View Urgent
Reason For Exam: Severe pain, no known injury
04/11/24 16:16
Dexamethasone Sod Phosphate [Decadron] 10 mg IV NOW STA
Dexamethasone Sod Phosphate [Decadron] 4 mg .ROUTE .STK-MED ONE
Abnormal Lab Results
04/11/24
16:11
RBC 3.81 L 10^6/uL
(4.70-6.10)
Hgb 11.3 L g/dL
(13.0-18.0)
Hct 33.2 L %
(39.0-52.0)
RDW 14.7 H %
(11.5-14.5)
MPV 10.9 H fL
(7.4-10.4)
Absolute Lymphs (auto) 0.6 L 10^3/uL
(1.2-3.4)
Absolute Monos (auto) 1.0 H 10^3/uL
(0.1-0.6)
Lymphocytes % 10.1 L %
(20.5-51.1)
Monocytes % 16.5 H %
(1.7-9.3)
BUN 32 H mg/dl
(9-20)
Glucose 120 H mg/dl
(70-99)
Total Bilirubin 1.6 H mg/dl
(0.2-1.3)
Alkaline Phosphatase 206 H U/L
(38-126)
04/11/24 16:11
04/11/24 16:11
<Janelle Delgadillo, FOUNDRY OPERATOR - Last Filed: 04/11/24 23:21>
MDM/Problems Addressed
Differential Diagnosis Includes:
arthritis flare, bursitis, tendinitis, rotator cuff injury
MDM/Problems Addressed:
83-year-old male, with history of chronic A-fib currently on aspirin and Plavix. right-handed, presents with severe right shoulder pain that started 3 days ago and gradually worsened. States pain 10/10 even when still. No recollection of overuse or
injury. Had rotator cuff surgery Jul 2023 and had no significant pain after that.
Patient was here 3 days ago with left shoulder pain, treated for arthritis with Toradol and pain subsided within 2 days. Denies right shoulder pain now.
CBC with no clinically significant abnormality
CMP No acute clinically significant abnormality BUN 32, Elevated alk phos at his baseline
Troponin WNL
EKG: A fib Rate 79. RBBB, no change
Pt has much pain relief after medication
Xray right shoulder: initially read by this examiner: DJD, nothing acute
Pt OOB and ambulating well.
Rx for Tramadol and Prednisone sent to his pharmacy
Referred to Orthopedics
<Janelle Delgadillo, FOUNDRY OPERATOR - Last Filed: 04/11/24 23:21>
*Critical Care Note
Total Time (30-74mins, 75-104mins- exclusive of procedures): Not Applicable
ED Attending Note
<Logan Lay PA-C - Last Filed: 04/11/24 17:11>
-
Portions of this chart may have been created with voice recognition software.� Occasional wrong word or��sound alike� substitutions may have occurred due to the inherent limitations of voice recognition software.
Discharge Plan
Departure
Patient Disposition: Home (Routine Discharge)
Date of Disposition: 04/11/24
Time of Disposition: 17:43
Patient with high blood pressure during this ER visit?: No
Condition: Good
Discharge Problem:
Acute pain of right shoulder
Instructions: Shoulder Pain ED, Bursitis ED
Prescriptions:
New
tramadol 50 mg tablet
50 mg PO Q8H PRN (Reason: Pain) Qty: 7 0RF
prednisone 10 mg tablet
10 mg PO DAILY Qty: 20 0RF
Rx Instructions:
40 mg day 1 and 2, 30 mg day 3 and 4, 20 mg day 5 and 6, 10 mg day 7 and 8
No Action
atorvastatin 80 MG tablet
80 mg PO DAILY
omeprazole 40 mg Capsule,Delayed Release(Dr/Ec)
20 mg PO DAILY
finasteride 5 mg Tablet
5 mg PO DAILY
cholecalciferol (vitamin D3) [Vitamin D3] 50 mcg (2,000 unit) Tablet
50 mcg PO DAILY
PreserVision AREDS-2 250-90-40-1 mg Capsule
1 tab PO BID
ascorbic acid (vitamin C) [Vitamin C] 1,000 mg Tablet
1,000 mg PO DAILY
lidocaine 5 % Adhesive Patch,Medicated
1 patch TOPICAL DAILY PRN (Reason: apply to back (L4-L5))
fluticasone propionate 50 mcg/actuation [place],Suspension
2 spray INTRANASAL DAILY PRN (Reason: congestion)
furosemide 40 mg Tablet
40 mg PO 1400
nitroglycerin [Nitrostat] 0.4 mg Tablet, Sublingual
0.4 mg SUBLINGUAL Q5M PRN (Reason: chest pain)
Systane (PF) 0.4-0.3 % Dropperette
1 drp OPHTHALMIC (EYE) 6XD PRN (Reason: dry eye)
nebivolol 5 mg Tablet
5 mg PO HS
furosemide 80 mg Tablet
80 mg PO DAILY AT 0700
clopidogrel [Plavix] 75 mg tablet
75 mg PO DAILY Qty: 30 5RF
aspirin 81 mg capsule
81 mg PO DAILY Qty: 30 11RF
tramadol 50 mg tablet
50 mg PO Q8H PRN (Reason: Pain) Qty: 10 0RF
alprazolam 0.25 mg Tablet
0.25 mg PO HS Qty: 7 0RF
zinc sulfate 50 mg zinc (220 mg) Capsule
220 mg PO DAILY Qty: 30 0RF
Referrals:
UNKNOWN - PT DOES,NOT KNOW [Family Provider] -
Activity Restrictions/Additional Instructions:
As we discussed, your pain is most likely from inflammation, such as arthritis, bursitis.
See your orthopedic doctor in 7-10 days if not 100% better by then.
I sent a prescription to your pharmacy for Tramadol and Prednisone taper.
Start the Prednisone tomorrow as you were given a dose here today
It may take 1-2 days for the Prednisone to kick in and you feel better.
Interventions
Interventions:
*Risk Screen - Suicide Last Done: 04/11/24 14:41
*General Assessment Last Done: 04/11/24 14:41
*Neglect/Abuse Screening Last Done: 04/11/24 14:41
ED- Fall Risk Assessment Last Done: 04/11/24 16:00
*ED COVID-19 Vaccine History Last Done: 04/11/24 14:41
*Nursing Disposition Last Done: 04/11/24 17:55
ED-Musculoskeletal Assessment Last Done: 04/11/24 16:00
Discharge Date and Time
Discharge Date/Time: 04/11/24 17:56
Print Language: MAORI
[2024-04-11 16:00] VITALS: BP 155/81; BMI 23.5
--- NOTE | 2024-04-11 16:10 | EDRN ---
Mahnaz Delgadillo LONGWALL FOREMAN currently at the pts bedside speaking with the pt and the pts family
[2024-04-11] MEDS: DILAUDID 1 MG IM (16:21)
[2024-04-11] MEDS: DECADRON 10 MG IV (16:22)
[2024-04-11 16:23] LABS: % Basophils 0.7 % (0-2); % Eosinophils 1.4 % (0-6); % Immature Granulocytes 0.2 % (0-0.5); % Lymphocytes 10.1 % (20.5-51.1); % Monocytes 16.5 % (1.7-9.3); % Neutrophils 71.1 % (42.2-75.2); Absolute Eosinophils 0.1 10^3/uL (0-0.7); Absolute Lymphocytes 0.6 10^3/uL (1.2-3.4); Absolute Neutrophils 4.2 10^3/uL (1.4-6.5); Hematocrit 33.2 % (39.0-52.0); Hemoglobin 11.3 g/dL (13.0-18.0); Mean Corpuscular Hgb 29.7 pg (27.0-31.0); Mean Corpuscular Volume 87.1 fL (80.0-94.0); Mean Platelet Volume 10.9 fL (7.4-10.4); Nucleated Red Blood Cells % 0 % (-); Platelet Count 149 10^3/uL (130-400); Red Blood Cell Count 3.81 10^6/uL (4.70-6.10); Red Cell Dist. Width 14.7 % (11.5-14.5); White Blood Cell Count 5.8 10^3/uL (4.8-10.8)
[2024-04-11 16:36] LABS: ALT (SGPT) 36 U/L (0-50); AST (SGOT) 35 U/L (17-59); Albumin 4.2 g/dl (3.5-5.0); Alkaline Phosphatase 206 U/L (38-126); Blood Urea Nitrogen 32 mg/dl (9-20); Calcium 9.4 mg/dl (8.4-10.2); Carbon Dioxide 27 mmol/L (22-30); Chloride 99 mmol/L (98-107); Estimated Creatinine Clearance 53 ml/min; Glucose 120 mg/dl (70-99); Potassium 5.1 mmol/L (3.5-5.1); Sodium 138 mmol/L (135-145); Total Bilirubin 1.6 mg/dl (0.2-1.3); Total Protein 6.5 g/dl (6.3-8.2); eGFR > 60.00
--- NOTE | 2024-04-11 16:37 | EDRN ---
this RN received the pt from the waiting room, the pt had c/o right shoulder pain that radiated to the right jaw, this RN placed EKG order and performed EKG, LAC PIV was placed and labs were drawn and sent
[2024-04-11 16:48] LABS: Troponin I < 0.012 ng/ml
== END 2024-04-11 17:56 | disposition home or self-care (01) ==
LOC: EMR 14:31
PROVIDERS: EMERGENCY PHYSICIAN Emergency Medicine
DX: M25.511 Pain in right shoulder (principal); I48.20 Chronic atrial fibrillation, unspecified; I25.10 Atherosclerotic heart disease of native coronary artery without angina pectoris; I10 Essential (primary) hypertension; E78.00 Pure hypercholesterolemia, unspecified; I25.2 Old myocardial infarction; F41.9 Anxiety disorder, unspecified; I73.00 Raynaud's syndrome without gangrene; I45.10 Unspecified right bundle-branch block; I87.2 Venous insufficiency (chronic) (peripheral); Z79.02 Long term (current) use of antithrombotics/antiplatelets; Z79.82 Long term (current) use of aspirin; Z82.49 Family history of ischemic heart disease and other diseases of the circulatory system; Z86.73 Personal history of transient ischemic attack (TIA), and cerebral infarction without residual deficits; Z87.891 Personal history of nicotine dependence; Z95.5 Presence of coronary angioplasty implant and graft
CPT/HCPCS: 99283; 96374; 96372; 73030; 80053; 84484; 85025; 93005

== ENCOUNTER 2024-04-17 20:46 | Emergency (ER) | payer MEDICARE, BC, SELFPAY ==
[2024-04-17 20:57] VITALS: BMI 25.4
[2024-04-17 20:58] VITALS: BP 158/57
[2024-04-17 21:11] LABS: % Basophils 0.1 % (0-2); % Eosinophils 0.1 % (0-6); % Immature Granulocytes 0.4 % (0-0.5); % Lymphocytes 9.8 % (20.5-51.1); % Monocytes 4.3 % (1.7-9.3); % Neutrophils 85.3 % (42.2-75.2); Absolute Lymphocytes 0.7 10^3/uL (1.2-3.4); Absolute Monocytes 0.3 10^3/uL (0.1-0.6); Absolute Neutrophils 6.1 10^3/uL (1.4-6.5); Hematocrit 34.7 % (39.0-52.0); Hemoglobin 11.9 g/dL (13.0-18.0); Mean Corp Hgb Conc. 34.3 g/dL (33.0-37.0); Mean Corpuscular Hgb 29.4 pg (27.0-31.0); Mean Corpuscular Volume 85.7 fL (80.0-94.0); Mean Platelet Volume 9.8 fL (7.4-10.4); Nucleated Red Blood Cells % 0 % (-); Platelet Count 245 10^3/uL (130-400); Red Blood Cell Count 4.05 10^6/uL (4.70-6.10); Red Cell Dist. Width 14.3 % (11.5-14.5); White Blood Cell Count 7.2 10^3/uL (4.8-10.8)
--- NOTE | 2024-04-17 21:17 | ED.GENMED ---
History of Present Illness
General
Chief Complaint: Chest Pain
Source: patient
Exam Limitations: none
Time Seen by Provider: 04/17/24 21:01
History of Present Illness
History of Present Illness:
This is a 83 year old male that comes in with c/o angina. States that he has been on Prednisone for his right rotator cuff as they said he had bursitis. State that he has one pill tomorrow and one the next day. States that tonight he had some chest
pain and his BP was elevated. States that he was given 4 baby aspirin and 2 nitro and his pain is gone. States that he was a little dizzy. Denies any fever, chills, SOB, abd pain, nausea, vomiting, diarrhea, headache, urinary burning.
Past History
Past History
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 RBBB, IBS, Eczema, ) and Other (Raynaud's
disease, Right BBB Cerebral hemorrhage, Chronic venous insufficiency, back and neck pain, Neuropathy, Sleep apnea, ); Negative NIDDM
ED Past Surgical History: Cardiac (PTCA with stent to proximal LAD 1998, A. fib cardioversion March 2010, Watchman procedure), Orthopedic (carpal tunnel, ) and Other (Left lower extremity there is vein stripping, cataracts, hemorrhoidectomy,
Septoplasty. )
Social History
Tobacco: Former smoker (Cigar occasionally and didn't inhale)
Alcohol: Occasional
Drug: None
Personal:
Living: with family
Employment: Retired
Family History
Family History: Hypertension; Negative Sudden
Review of Systems
Review of Systems
All Other Systems: ROS reviewed and negative except as documented in HPI and ROS
Constitutional: Reports no symptoms; Denies fever or chills
EENT: Reports no symptoms
Respiratory: Reports no symptoms; Denies cough or trouble breathing
Cardiac: Reports chest pain
ABD/GI: Reports no symptoms; Denies abdominal pain, nausea, vomiting or diarrhea
: Reports no symptoms; Denies dysuria, frequency or urgency
Musculoskeletal: Reports no symptoms
Skin: Reports no symptoms
Neurological: Reports dizzy; Denies headache
Psychiatric: Reports no symptoms
Phy Exam
General Physical Exam
General Presentation: no apparent distress
General age: appears stated age
General Skin: warm and dry
General Habitus: elderly
General Mental: alert
General Hydration: appears well hydrated
ENT Exam
ENT Exam: TM's normal, pharynx normal and neck supple
Eye Exam
Eye Exam: EOMI
Cardiovascular Exam
Cardiovascular Exam: no edema, normal peripheral pulses, bradycardia and other (Murmur)
Pulmonary Exam
Pulmonary Exam: lungs clear, no respiratory distress, no rales, chest non tender, no crackles, no rhonchi, no wheezing and no cough
Gastrointestinal Exam
Gastrointestinal Exam: normal bowel sounds, non tender, soft, no organomegaly, no pulsatile mass and non distended
Musculoskeletal Exam
Musculoskeletal Exam: full ROM and no edema
Skin Exam
Skin Exam: normal color, warm/dry, no rash and no petechia
Psychiatric Exam
Psychiatric Exam: normal mood/affect
Scores
Heart Score for Chest Pain Patients
STEMI patient?: No
History: Slightly or Non-Suspicious
ECG: Normal
Age: >/= 65 years
Risk Factors: >/= 3 Risk Factors or History of CAD
Troponin: </= Normal Limit
Heart Score for Chest Pain Patients: 4
Heart Score Risk: 20.3% MACE over next 6 weeks
Course
Orders/Labs/Results
Orders:
Orders
04/17/24 20:46
Electrocardiogram (*1) Urgent
Reason for Study: Chest Pain
EKG- Treatment ONCE
04/17/24 21:02
Complete Blood Count/With Diff Urgent
Comprehensive Metabolic Panel Urgent
Troponin I Urgent
04/17/24 21:15
Pantoprazole [Protonix IV] 40 mg IV NOW STA
CR Chest - 2 Views Urgent
Comment:
Reason For Exam: Chest pain
04/17/24 21:16
EKG- Treatment ONCE
04/17/24 21:51
COVID-19 Antigen Urgent
Source: Nasal Swab
04/18/24 00:00
Electrocardiogram (*1) Urgent
Reason for Study: Chest Pain
Other Reason for Exam: Repeat with Troponin
04/18/24 00:11
Troponin I Urgent
Abnormal Lab Results
04/17/24
21:02
RBC 4.05 L 10^6/uL
(4.70-6.10)
Hgb 11.9 L g/dL
(13.0-18.0)
Hct 34.7 L %
(39.0-52.0)
Absolute Lymphs (auto) 0.7 L 10^3/uL
(1.2-3.4)
Neutrophils % 85.3 H %
(42.2-75.2)
Lymphocytes % 9.8 L %
(20.5-51.1)
BUN 32 H mg/dl
(9-20)
Glucose 150 H mg/dl
(70-99)
AST 73 H U/L
(17-59)
ALT 86 H U/L
(0-50)
Alkaline Phosphatase 199 H U/L
(38-126)
04/17/24 21:02
04/17/24 21:02
H/H slightly low. Dehydration. hyperglycemia. AST/ALT elevation when compared with prior labs, Alk phos elevation but lower then prior labs.
Both Troponin <0.012
Vital Signs
Initial and Last Documented VS:
Initial Vital Signs
Pulse Resp Pulse Ox
85 23 100
04/17/24 20:54 04/17/24 20:54 04/17/24 20:54
Last Documented Vital Signs
Temp Pulse Resp BP Pulse Ox
98.6 F 49 17 116/60 97
04/17/24 20:58 04/18/24 00:30 04/18/24 00:30 04/18/24 00:00 04/18/24 00:30
MDM/Problems Addressed
Differential Diagnosis Includes:
Gastritis, Angina, Coronary syndrome
MDM/Problems Addressed:
This is a 83 year old male that comes in with c/o chest pain. States that he has been taking Prednisone for his right shoulder. states that he started with chest pain tonight. Patient was given baby aspirin and 4 nitro and his pain is gone.
Will check labs, chest x-ray. Will repeat Troponin in 3 hours.
Back into see patient. Explained that both of his Troponin are normal. Patient has not had any chest pain while here. Explained that this may be gastritis but with patient history will place patient on the Cardiology hot line. Patient to return
with any concerns
Repeat EC, atrial fib, Normal axis, RBBB, T wave inversion, III, V1, V2,V3, Checked by Dr. Chowdary. When in the room patient heart rate was 51.
Chronic conditions affecting care: CAD
Acute Exacerbation and/or Progression of Chronic Illness: CAD
*Radiology
Radiology exam reviewed: radiology read reviewed (Chest- No acute cardiopulmonary abnormality. Cardiomegaly, similar in appearance to prior. )
*Pulse Oximetry
Patient hypoxic: no
*EKG
Interpreted by ED Provider?: Yes
Heart Rate: 69
Rate: normal
Rhythm: a-fib
[place]: left axis deviation
QRS Pattern: right bundle branch block
Ischemia: no ischemia
*Agricultural Economics Teacher Interpretation
Rate: bradycardiac
Heart Rate: 58
Rhythm: sinus
*Critical Care Note
Total Time (30-74mins, 75-104mins- exclusive of procedures): Not Applicable
ED Attending Note
-
Portions of this chart may have been created with voice recognition software.� Occasional wrong word or��sound alike� substitutions may have occurred due to the inherent limitations of voice recognition software.
Discharge Plan
Departure
Patient Disposition: Home (Routine Discharge)
Date of Disposition: 04/18/24
Time of Disposition: 00:59
Patient with high blood pressure during this ER visit?: No
Condition: Good
Covid-19: Not Applicable
Discharge Problem:
Chest pain
Instructions: Chest Pain DCA Follow Up
Prescriptions:
No Action
atorvastatin 80 MG tablet
80 mg PO DAILY
omeprazole 40 mg Capsule,Delayed Release(Dr/Ec)
20 mg PO DAILY
finasteride 5 mg Tablet
5 mg PO DAILY
cholecalciferol (vitamin D3) [Vitamin D3] 50 mcg (2,000 unit) Tablet
50 mcg PO DAILY
PreserVision AREDS-2 250-90-40-1 mg Capsule
1 tab PO BID
ascorbic acid (vitamin C) [Vitamin C] 1,000 mg Tablet
1,000 mg PO DAILY
lidocaine 5 % Adhesive Patch,Medicated
1 patch TOPICAL DAILY PRN (Reason: apply to back (L4-L5))
fluticasone propionate 50 mcg/actuation [place],Suspension
2 spray INTRANASAL DAILY PRN (Reason: congestion)
furosemide 40 mg Tablet
40 mg PO 1400
nitroglycerin [Nitrostat] 0.4 mg Tablet, Sublingual
0.4 mg SUBLINGUAL Q5M PRN (Reason: chest pain)
Systane (PF) 0.4-0.3 % Dropperette
1 drp OPHTHALMIC (EYE) 6XD PRN (Reason: dry eye)
nebivolol 5 mg Tablet
5 mg PO HS
furosemide 80 mg Tablet
80 mg PO DAILY AT 0700
clopidogrel [Plavix] 75 mg tablet
75 mg PO DAILY Qty: 30 5RF
aspirin 81 mg capsule
81 mg PO DAILY Qty: 30 11RF
tramadol 50 mg tablet
50 mg PO Q8H PRN (Reason: Pain) Qty: 10 0RF
tramadol 50 mg tablet
50 mg PO Q8H PRN (Reason: Pain) Qty: 7 0RF
prednisone 10 mg tablet
10 mg PO DAILY Qty: 20 0RF
Rx Instructions:
40 mg day 1 and 2, 30 mg day 3 and 4, 20 mg day 5 and 6, 10 mg day 7 and 8
alprazolam 0.25 mg Tablet
0.25 mg PO HS Qty: 7 0RF
zinc sulfate 50 mg zinc (220 mg) Capsule
220 mg PO DAILY Qty: 30 0RF
Referrals:
DEAN MARTINES [Other]
Activity Restrictions/Additional Instructions:
As discussed, your blood work shows some Dehydration. Your Liver enzymes are mildly elevated and your chest x-ray is normal. You have been placed on the Cardiology hot line. This means that the [facility] office will call you tomorrow and set up
an appointment with the Jewelry Bench Molder. This may be gastritis due to the steroids. . IF YOU HAVE INCREASED OR CHANGING PAIN, OR YOU HAVE ANY OTHER CONCERNS PLEASE RETURN TO THE EMERGENCY ROOM.
Interventions
Interventions:
*Risk Screen - Suicide Last Done: 04/17/24 20:51
*General Assessment Last Done: 04/17/24 20:51
*Neglect/Abuse Screening Last Done: 04/17/24 20:51
*ED COVID-19 Vaccine History Last Done: 04/17/24 20:51
ED- Cardiac Assessment Last Done: 04/17/24 21:12
Discharge Date and Time
Print Language: AZERI
[2024-04-17] MEDS: PROTONIX IV 40 MG IV (21:23)
[2024-04-17 21:25] LABS: ALT (SGPT) 86 U/L (0-50); AST (SGOT) 73 U/L (17-59); Albumin 4.1 g/dl (3.5-5.0); Alkaline Phosphatase 199 U/L (38-126); Blood Urea Nitrogen 32 mg/dl (9-20); Calcium 9.3 mg/dl (8.4-10.2); Carbon Dioxide 26 mmol/L (22-30); Chloride 101 mmol/L (98-107); Estimated Creatinine Clearance 62 ml/min; Glucose 150 mg/dl (70-99); Potassium 4.4 mmol/L (3.5-5.1); Sodium 138 mmol/L (135-145); Total Bilirubin 1.3 mg/dl (0.2-1.3); Total Protein 6.3 g/dl (6.3-8.2); eGFR > 60.00
[2024-04-17 21:36] LABS: Troponin I < 0.012 ng/ml
[2024-04-17 22:00] VITALS: BP 150/64
[2024-04-17 22:13] LABS: COVID-19 Antigen Negative (Negative)
[2024-04-17 23:00] VITALS: BP 123/58
[2024-04-18] VITALS: BP 116/60
[2024-04-18 00:40] LABS: Troponin I < 0.012 ng/ml
[2024-04-18 01:00] VITALS: BP 120/75
== END 2024-04-18 01:37 | disposition home or self-care (01) ==
LOC: EMR 20:46
PROVIDERS: Clinical Nurse Specialist Family Health; EMERGENCY PHYSICIAN Emergency Medicine
DX: R07.9 Chest pain, unspecified (principal); I25.10 Atherosclerotic heart disease of native coronary artery without angina pectoris; I10 Essential (primary) hypertension; E78.00 Pure hypercholesterolemia, unspecified; I25.2 Old myocardial infarction; Z95.5 Presence of coronary angioplasty implant and graft; Z87.891 Personal history of nicotine dependence; Z86.73 Personal history of transient ischemic attack (TIA), and cerebral infarction without residual deficits; Z85.820 Personal history of malignant melanoma of skin; I48.0 Paroxysmal atrial fibrillation
CPT/HCPCS: 99285; 96374; 71046; 80053; 84484; 85025; 87811; 93005

== ENCOUNTER 2024-07-01 14:15 | Inpatient (IN) | payer MEDICARE, OTHER, SELFPAY ==
[2024-07-01 09:36] VITALS: BP 121/59
[2024-07-01 10:14] LABS: % Basophils 0.6 % (0-2); % Eosinophils 3.2 % (0-6); % Immature Granulocytes 0.2 % (0-0.5); % Lymphocytes 18.2 % (20.5-51.1); % Monocytes 13.7 % (1.7-9.3); % Neutrophils 64.1 % (42.2-75.2); Absolute Eosinophils 0.2 10^3/uL (0-0.7); Absolute Monocytes 0.7 10^3/uL (0.1-0.6); Absolute Neutrophils 3.4 10^3/uL (1.4-6.5); Hematocrit 36.4 % (39.0-52.0); Hemoglobin 11.8 g/dL (13.0-18.0); Mean Corp Hgb Conc. 32.4 g/dL (33.0-37.0); Mean Corpuscular Hgb 29.9 pg (27.0-31.0); Mean Corpuscular Volume 92.4 fL (80.0-94.0); Mean Platelet Volume 10.8 fL (7.4-10.4); Nucleated Red Blood Cells % 0 % (-); Platelet Count 144 10^3/uL (130-400); Red Blood Cell Count 3.94 10^6/uL (4.70-6.10); Red Cell Dist. Width 15.5 % (11.5-14.5); White Blood Cell Count 5.3 10^3/uL (4.8-10.8)
[2024-07-01 10:31] LABS: ALT (SGPT) 40 U/L (0-50); AST (SGOT) 45 U/L (17-59); Albumin 4.3 g/dl (3.5-5.0); Alkaline Phosphatase 204 U/L (38-126); Blood Urea Nitrogen 26 mg/dl (9-20); Calcium 9.1 mg/dl (8.4-10.2); Carbon Dioxide 29 mmol/L (22-30); Chloride 99 mmol/L (98-107); Glucose 93 mg/dl (70-99); Potassium 3.8 mmol/L (3.5-5.1); Sodium 138 mmol/L (135-145); Total Bilirubin 1.2 mg/dl (0.2-1.3); Total Protein 6.4 g/dl (6.3-8.2); eGFR > 60.00
[2024-07-01 10:41] LABS: NT-proBNP 4380 pg/ml; Troponin I < 0.012 ng/ml
--- NOTE | 2024-07-01 12:44 | W.PN.CARDCBS ---
Today's Communication / Plan
-
IV diuresis
check CXR
check echo
Impression / Plan
-
PCP: Yashira Contreras MD
CDY: Miguel A Valero MD
Impression:
Acute on chronic HF with preserved EF
LE edema
cough
Permanent Afib
s/p Watchman device implant 02/02/2024
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
HTN
CAD/PCI LAD BMS 1998
Hyperlipidemia
EMILY/CPAP
RBBB
chronic HFpEF
GERD
Gout
Depression
DDD
IgA deficiency
R shoulder rep
Cardiovascular diagnostic testing:
03/22/2024 SHEMAR post watchman: Normal LV size and function, EF 55%, mildly dilated RV, normal RV function, moderate biatrial enlargement. Well-seated number 31 mm Watchman FLX pro. No thrombus on the device. No perivalvular leak. Mild MR, mild AI,
mild , moderate TR shunt across interatrial septum consistent with post transseptal puncture with recent Watchman procedure
12/09/2023 echo: Normal LV size, EF 50%, mild cLVH mild MR, mild (21/11/1.6 cm�), mild AI, mild to moderate TR
11/20/2017: Lexiscan stress test small, mild, partially reversible anterior apical defect consistent with small residual ischemia versus soft tissue attenuation artifact
Plan:
83-year-old male presents for hospital admission from cardiology office today due to concerns for acute on chronic heart failure with preserved EF. He has experienced a 15 to 20 pound weight gain with worsening bilateral pitting lower extremity
edema, dyspnea on exertion with orthopnea and PND, and dry cough, that did not improve with up titration of outpatient oral diuretics. Cough has been present for a month, mostly dry but some clear sputum. No fevers, chills. proBNP 06/23/2024 was
4388. At that time he was advised to continue the higher dose of Lasix 40 mg twice daily, but had no improvement in symptoms. Patient was concerned that cough was due to nebivolol and it was stopped for a few days but restarted when cough didn't
improve.
Also with recent history of Watchman implant 02/02/2024. Post watchman SHEMAR 03/22/2024 showed well-seated Watchman device with no thrombus.. Eliquis was stopped and he was transitioned to Plavix and aspirin. He developed nosebleeds so aspirin was
stopped and he is currently on Plavix alone.
ER diagnostics:
Troponin < 0.012, proBNP 4380, BUN/creatinine 26/0.9, Na 138, K3.8
EKG: afib, LAD, RBBB
Plan:
acute on chronic HFpEF
-start Lasix 40 mg IV BID
-check LE venous U/S r/o DVT
-check CXR
-check echo
-I/O
-daily wt
-Admit to telemetry
-Consider eventual addition of SGLT2 inhibitor in setting of heart failure preserved EF. In review of outpatient chart, patient with intolerance to spironolactone in past-breast tenderness. Had cough on CATALINO inhibitors and valsartan. Had edema on
amlodipine and nifedipine and has diltiazem listed as an allergy.
afib rate controlled, on Nebivolol.
-telem personally reviewed: afib 40s-50s. No LH/dizzy/syncope/falls with lower HRs.
post 31mm Watchman device implant 02/02/24
-cont Plavix. Was not able to tolerate combination of ASA and Plavix due to nosebleeds.
-off anticoagulation as post-watchman SHEMAR showed well seated device with no leak or thrombus.
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
Subjective
Date of Service: July 01, 2024
-cough x 1 month
-15-20 lb wt gain with significant LE edema
-denies SOB, CP, palps, fevers, chills
Objective
Labs:
07/01/24 09:47
07/01/24 09:47
Labs
Hgb 11.8 g/dL (13.0-18.0) L 07/01/24 09:47
Hct 36.4 % (39.0-52.0) L 07/01/24 09:47
Plt Count 144 10^3/uL (130-400) 07/01/24 09:47
Sodium 138 mmol/L (135-145) 07/01/24 09:47
Potassium 3.8 mmol/L (3.5-5.1) 07/01/24 09:47
BUN 26 mg/dl (9-20) H 07/01/24 09:47
Creatinine 0.9 mg/dL (0.7-1.3) 07/01/24 09:47
Glucose 93 mg/dl (70-99) 07/01/24 09:47
Troponins
07/01/24
09:47
Troponin I < 0.012
Vital Signs and I&O:
Vital Signs
Pulse Resp BP Pulse Ox
60 18 121/59 100
07/01/24 09:36 07/01/24 09:36 07/01/24 09:36 07/01/24 09:36
Vital Signs
Pulse Resp BP Pulse Ox
60 18 121/59 100
07/01/24 09:36 07/01/24 09:36 07/01/24 09:36 07/01/24 09:36
Physical Exam
Physical Exam
GEN: No distress, awake, Ox3
HEENT: supple, anicteric, mmm
LUNGS: rales B/L bases
CV: irreg, irreg S1/S2, 2/6 systolic murmur w/ click LLSB
ABD: mildly distended
EXT: 3-4 + pitting edema, skin erythematous and taut
NEURO: Gross non-focal
SKIN: No rash
[2024-07-01 13:17] VITALS: BP 133/64
--- NOTE | 2024-07-01 13:29 | HPS.HSE ---
Addendum entered and electronically signed by Neil Nobles MD 07/01/24 16:06:
I saw and examined the patient.
The WIRE STITCHER OPERATOR or PA's note was reviewed and I agree with the note.
Comment: 83-year-old male with history of CAD, CHF, A-fib, prior ICH, history of Watchman came to the hospital with increasing lower extremity swelling and weight. Start IV Lasix. Consult cardiology. Echocardiogram if warranted by cardiology.
Telemetry
General: Comfortable and Conversant
HEENT: Anicteric and Moist mucous membranes
Respiratory: Clear, Non Labored Respirations and Decreased Breath Sounds (Bilateral bases)
Cardiac: S1/S2, Irregular Rhythm, Bradycardia and Murmur
GI: Soft, Non Tender and Distended
Musculoskeletal: No Clubbing, No Cyanosis and Other (+4 pitting edema bilateral lower extremities)
Skin: Warm, Dry and Other (Mild erythema bilateral lower extremities)
Neuro: Awake, Alert, Oriented and Nonfocal/grossly intact
Psych: Calm
I spent a total of 77 minutes with the patient or on the floor. More than 50% of this time involved counseling and coordination of care.
Original Note:
Family Physician
-
Family Physician: NOT KNOW UNKNOWN - PT DOES
Chief Complaint
-
Lower Extremity Edema
History of Present Illness
Patient is an 83 y/o male past medical history of CAD, CHF, A-Fib, and prior ICH who presents with increasing lower extremity edema and cough. Patient reports ongoing symptoms for the past month. He reports despite increasing Lasix dosing his
legs have continued to swell, and he has continued to gain weight. He reports ongoing cough that is occasionally productive of thick clear mucus, and increasing dyspnea on exertion. He denies fever, sweats or chills.
Medical History
Past Medical History
Past Medical History: Reports Other
Additional Past Medical History:
Coronary Artery Disease s/p LAD Stent in 1998
Chronic HFpEF
Permanent Atrial Fibrillation
Traumatic Intracranial Hemorrhage 08/2023
Essential Hypertension
Hyperlipidemia
Anxiety/Depression
Spinal Stenosis
BPH
Irritable Bowel Syndrome
Past Surgical History: Reports Other
Additional Past Surgical History:
Cardiac Stent
Watchman Device
Varicose Vein Stripping
Melanoma Removal
Hemorrhoidectomy
Rotator Cuff Repair
Carpal Tunnel Release
Social History
Tobacco: Other (Former pipe smoking, but quit over 40 years ago)
Alcohol: Occasional
Family History
Family History: Not pertinent
Allergies / Home Medications
Allergies reflects when Allergies were last updated in [facility].
Home Medications with original date entered in [facility]
Allergy/Medication List:
Allergies
Allergy/AdvReac Type Severity Reaction Status Date / Time
amlodipine Allergy Severe Swelling Verified 04/11/24 14:46
diltiazem Allergy Severe edema Verified 04/11/24 14:46
montelukast sodium Allergy Severe Rash Verified 04/11/24 14:46
[From Singulair]
nifedipine [Nifedipine] Allergy Severe edma Verified 04/11/24 14:46
ramipril [From Altace] Allergy Severe cough Verified 04/11/24 14:46
valsartan [From Diovan] Allergy Severe COUGH Verified 04/11/24 14:46
codeine Allergy Mild Nausea Verified 04/11/24 14:46
tramadol Allergy Mild Pharmacy Verified 04/17/24 21:00
to Review
dapagliflozin [From Farxiga] Allergy Pharmacy Verified 04/17/24 21:01
to Review
FERNANDO Inhibitors AdvReac Severe cough Verified 04/11/24 14:46
[Fernando Inhibitors]
oxycodone HCl [From Percocet] AdvReac Severe stomach Verified 04/11/24 14:46
ache
spironolactone AdvReac Severe tenderness Verified 04/11/24 14:46
of breast
tamsulosin AdvReac Severe lightheaded Verified 04/11/24 14:46
Home Medications
atorvastatin 80 mg tablet 80 mg PO DAILY High cholesterol 10/30/17
cholecalciferol (vitamin D3) 50 mcg (2,000 unit) tablet (Vitamin D3) 50 mcg PO DAILY Supplement 08/07/23
finasteride 5 mg tablet 5 mg PO DAILY prostate issues 08/07/23
omeprazole 40 mg capsule,delayed release 20 mg PO DAILY Gastrointestinal Issue 08/07/23
vit C 250 mg-vit E 90 mg-zinc 40 mg-copper 1 cw-hfykah-stlbup capsule (PreserVision AREDS-2) 1 tab PO BID Supplement 08/07/23
ascorbic acid (vitamin C) 1,000 mg tablet (Vitamin C) 1,000 mg PO DAILY Supplement 08/28/23
fluticasone propionate 50 mcg/actuation nasal spray,suspension 2 spray intranasal DAILY PRN congestion 08/28/23
lidocaine 5 % topical patch 1 patch topical DAILY PRN apply to back (L4-L5) 08/28/23
alprazolam 0.25 mg tablet 0.25 mg PO HS #7 tabs 09/10/23
zinc sulfate 50 mg zinc (220 mg) capsule 220 mg (4.4 x 50 mg zinc (220 mg)) PO DAILY #30 caps 09/10/23
furosemide 40 mg tablet 40 mg PO 1400 02/02/24
nebivolol 5 mg tablet 5 mg PO HS 02/02/24
nitroglycerin 0.4 mg sublingual tablet (Nitrostat) 0.4 mg sublingual Q5M PRN chest pain 02/02/24
peg 400-propylene glycol (PF) 0.4 %-0.3 % eye drops in a dropperette (Systane (PF)) 1 drp ophthalmic (eye) 6XD PRN dry eye 02/02/24
aspirin 81 mg capsule 81 mg PO DAILY Blood clot prevention/tx #30 caps 03/22/24
clopidogrel 75 mg tablet (Plavix) 75 mg PO DAILY Blood clot prevention/tx #30 tabs 03/22/24
furosemide 80 mg tablet 80 mg PO DAILY AT 0700 03/22/24
tramadol 50 mg tablet 50 mg PO Q8H PRN Pain #10 tabs 04/08/24
prednisone 10 mg tablet 10 mg PO DAILY #20 tabs 04/11/24
tramadol 50 mg tablet 50 mg PO Q8H PRN Pain #7 tabs 04/11/24
Review of Systems
-
A 12 point ROS was completed and negative except as noted: Yes
Constitutional: Denies Fever or Chills
Respiratory: Reports Cough and Trouble Breathing
Cardiac: Denies Chest Pain or Palpitations
Physical Exam
Vital Signs
Vital Signs
Pulse Resp BP Pulse Ox
60 18 121/59 100
07/01/24 09:36 07/01/24 09:36 07/01/24 09:36 07/01/24 09:36
Physical Exam
General: Comfortable and Conversant
HEENT: Anicteric and Moist mucous membranes
Respiratory: Clear, Non Labored Respirations and Decreased Breath Sounds (Bilateral bases)
Cardiac: S1/S2, Irregular Rhythm, Bradycardia and Murmur
GI: Soft, Non Tender and Distended
Rectal: Deferred by Provider
Musculoskeletal: No Clubbing, No Cyanosis and Other (+4 pitting edema bilateral lower extremities)
Skin: Warm, Dry and Other (Mild erythema bilateral lower extremities)
Neuro: Awake, Alert, Oriented and Nonfocal/grossly intact
Psych: Calm
Laboratory Results
-
07/01/24 09:47
07/01/24 09:47
Laboratory Results
Total Bilirubin 1.2 mg/dl (0.2-1.3) 07/01/24 09:47
AST 45 U/L (17-59) 07/01/24 09:47
ALT 40 U/L (0-50) 07/01/24 09:47
Alkaline Phosphatase 204 U/L (38-126) H 07/01/24 09:47
Troponin I < 0.012 ng/ml 07/01/24 09:47
Data Reviewed
-
Diagnostic Radiology: Report Reviewed by me
Lab Data: Labs Reviewed by me
Old Records: Reviewed
Impression/Plan
-
Acute on Chronic HFpEF
-Consult Cardiology
-Echo Feb 2024: Normal left ventricular chamber size myocardial thickness and systolic function. Left ventricular ejection fraction 55%.
-Defer decision on repeating Echo to Cardiology
-Continue Lasix 60mg IV BID
-Monitor Is&Os and Daily Weights
Coronary Artery Disease s/p LAD Stent in 1998
-Continue Plavix
Permanent Atrial Fibrillation s/p Watchman Device 01/2024
-Continue Plavix
-Hold nebivolol due to relative bradycardia
Hyperlipidemia
-Continue atorvastatin
BPH
-Continue finasteride
GERD
-Continue famotidine
Hx Traumatic Intracranial Hemorrhage 08/2023
DVT proph: Lovenox
Code Status: DNR
--- NOTE | 2024-07-01 13:31 | ED.GENMED ---
History of Present Illness
General
Chief Complaint: Swelling
Source: patient and family
Exam Limitations: none
Time Seen by Provider: 07/01/24 11:49
Nursing documentation reviewed up to this point in time: agreed with
History of Present Illness
History of Present Illness:
83-year-old male sent by cardiology with concerns of lower extremity swelling worsening over the past few weeks with significant weight gain of roughly 10 pounds appropriate oral Lasix. Also noted some redness but denies any fevers. Has had some
shortness of breath and a chronic cough. Denies any specific chest pain.
Past History
Past History
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 RBBB, IBS, Eczema, ) and Other (Raynaud's
disease, Right BBB Cerebral hemorrhage, Chronic venous insufficiency, back and neck pain, Neuropathy, Sleep apnea, ); Negative NIDDM
ED Past Surgical History: Cardiac (PTCA with stent to proximal LAD 1998, A. fib cardioversion March 2010, Watchman procedure), Orthopedic (carpal tunnel, ) and Other (Left lower extremity there is vein stripping, cataracts, hemorrhoidectomy,
Septoplasty. )
Social History
Tobacco: Former smoker (Cigar occasionally and didn't inhale)
Alcohol: Occasional
Drug: None
Personal:
Living: with family
Employment: Retired
Family History
Family History: Hypertension; Negative Sudden
Review of Systems
Review of Systems
Allergies reviewed?: Yes
All Other Systems: ROS reviewed and negative except as documented in HPI and ROS
Phy Exam
Physical Exam
Physical Exam:
GENERAL: Alert , in no apparent distress
EYE: pupils equal and reactive
NECK: Supple, no significant adenopathy.
ENT: o/p clr, mmm.
CARDIAC: Regular rate and rhythm .
LUNGS: Clear breath sounds bilaterally, no acute respiratory distress, no wheezes/rales/rhonchi
ABDOMEN: Soft, without focal tenderness, no r/g, no cvat
NEUROLOGICAL: Alert and oriented, no focal neuro deficits
SKIN: Warm and dry, skin intact.
MUSCULOSKELETAL: Significant lower extremity edema from the mid thighs distally. +2 pitting, well perfused.
PSYCH: Normal and appropriate interaction.
Scores
Heart Failure Risk
Heart Failure Risk Score: Not Applicable
Course
Orders/Labs/Results
Orders:
Orders
07/01/24 09:47
Complete Blood Count/With Diff Urgent
Comprehensive Metabolic Panel Urgent
NT-proBNP Urgent
Troponin I Urgent
07/01/24 12:10
Furosemide [Lasix] 60 mg IV NOW STA
Nursing to Place Non Medication Order As Directed
Physician Order: Weight please
07/01/24 12:31
Chest [CR Chest - 2 Views ] Urgent
Comment:
Reason For Exam: cough sob
Abnormal Lab Results
07/01/24
09:47
RBC 3.94 L 10^6/uL
(4.70-6.10)
Hgb 11.8 L g/dL
(13.0-18.0)
Hct 36.4 L %
(39.0-52.0)
MCHC 32.4 L g/dL
(33.0-37.0)
RDW 15.5 H %
(11.5-14.5)
MPV 10.8 H fL
(7.4-10.4)
Absolute Lymphs (auto) 1.0 L 10^3/uL
(1.2-3.4)
Absolute Monos (auto) 0.7 H 10^3/uL
(0.1-0.6)
Lymphocytes % 18.2 L %
(20.5-51.1)
Monocytes % 13.7 H %
(1.7-9.3)
BUN 26 H mg/dl
(9-20)
Alkaline Phosphatase 204 H U/L
(38-126)
07/01/24 09:47
07/01/24 09:47
Vital Signs
Initial and Last Documented VS:
Initial Vital Signs
Pulse Resp BP Pulse Ox
60 18 121/59 100
07/01/24 09:36 07/01/24 09:36 07/01/24 09:36 07/01/24 09:36
Last Documented Vital Signs
Pulse Resp BP Pulse Ox
60 18 121/59 100
07/01/24 09:36 07/01/24 09:36 07/01/24 09:36 07/01/24 09:36
MDM/Problems Addressed
MDM/Problems Addressed:
84-year-old male presenting to the emergency department today with concerns of worsening lower extremity swelling despite 40 mg twice daily of Lasix. Here patient no distress at rest legs are significantly swollen with +2 pitting edema from the mid
thighs distally. Labs showing elevated BNP of 4280. Otherwise chest x-ray without acute findings. Plan for IV diuresis monitoring overnight.
*Critical Care Note
Total Time (30-74mins, 75-104mins- exclusive of procedures): Not Applicable
ED Attending Note
-
Portions of this chart may have been created with voice recognition software.� Occasional wrong word or��sound alike� substitutions may have occurred due to the inherent limitations of voice recognition software.
Discharge Plan
Departure
Patient Disposition: Admit
Date of Disposition: 07/01/24
Time of Disposition: 13:33
Admit to: Telemetry
Admit to doctor: Santyy
Presentation/result/management discussed w/ accepting MD/DO: Hospitalist
Patient with high blood pressure during this ER visit?: No
Condition: Good
Covid-19: Not Applicable
Discharge Problem:
Heart failure, Leg edema
Prescriptions:
No Action
atorvastatin 80 MG tablet
80 mg PO DAILY
omeprazole 40 mg Capsule,Delayed Release(Dr/Ec)
20 mg PO DAILY
finasteride 5 mg Tablet
5 mg PO DAILY
cholecalciferol (vitamin D3) [Vitamin D3] 50 mcg (2,000 unit) Tablet
50 mcg PO DAILY
PreserVision AREDS-2 250-90-40-1 mg Capsule
1 tab PO BID
ascorbic acid (vitamin C) [Vitamin C] 1,000 mg Tablet
1,000 mg PO DAILY
lidocaine 5 % Adhesive Patch,Medicated
1 patch TOPICAL DAILY PRN (Reason: apply to back (L4-L5))
fluticasone propionate 50 mcg/actuation [place],Suspension
2 spray INTRANASAL DAILY PRN (Reason: congestion)
furosemide 40 mg Tablet
40 mg PO 1400
nitroglycerin [Nitrostat] 0.4 mg Tablet, Sublingual
0.4 mg SUBLINGUAL Q5M PRN (Reason: chest pain)
Systane (PF) 0.4-0.3 % [place]
1 drp OPHTHALMIC (EYE) 6XD PRN (Reason: dry eye)
nebivolol 5 mg Tablet
5 mg PO HS
furosemide 80 mg Tablet
80 mg PO DAILY AT 0700
clopidogrel [Plavix] 75 mg tablet
75 mg PO DAILY Qty: 30 5RF
aspirin 81 mg capsule
81 mg PO DAILY Qty: 30 11RF
tramadol 50 mg tablet
50 mg PO Q8H PRN (Reason: Pain) Qty: 10 0RF
tramadol 50 mg tablet
50 mg PO Q8H PRN (Reason: Pain) Qty: 7 0RF
prednisone 10 mg tablet
10 mg PO DAILY Qty: 20 0RF
Rx Instructions:
40 mg day 1 and 2, 30 mg day 3 and 4, 20 mg day 5 and 6, 10 mg day 7 and 8
alprazolam 0.25 mg Tablet
0.25 mg PO HS Qty: 7 0RF
zinc sulfate 50 mg zinc (220 mg) Capsule
220 mg PO DAILY Qty: 30 0RF
Referrals:
UNKNOWN - PT DOES,NOT KNOW [Family Provider] -
Discharge Date and Time
Print Language: ALGERIAN
[2024-07-01] MEDS: LASIX 60 MG IV ×2 (13:48→19:14)
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
[2024-07-01 18:13] VITALS: BP 119/63; BMI 26.8
[2024-07-01 18:52] VITALS: BMI 26.8
--- NOTE | 2024-07-01 19:00 | PTCARENOTE ---
1830 Pt arrived from ER via stretcher, alert and oriented x 3. Vs stable. Noted MD orders, place on heart monitor(current Rhythm A-fib) heart rate 60''s. Pt mention at bedside, while using urinal, pt noted small amount of bleeding near foreskin
area. Urine was blood tinge, pt mention currently takes Plavix. When explain to pt due for Lovenox 40 mg, pt concern it was also a blood thinner, did not give at this time.
Report given to global consumer sector vice president nurse to continue to monitor pt.
[2024-07-01] MEDS: LOVENOX SC (19:02)
[2024-07-01 19:44] VITALS: BP 128/58
[2024-07-01] MEDS: LIDOCAINE 4% PATCH 1 PATCH TOPICAL (21:05)
[2024-07-01] MEDS: XANAX 0.25 MG PO (21:06)
[2024-07-01 23:32] VITALS: BP 125/51
[2024-07-02] VITALS (8 sets, daily range): BP systolic 105–136; BP diastolic 44–58; PULSE 69; O2SAT 97; BMI 25.6
[2024-07-02 08:33] LABS: Hematocrit 36.5 % (39.0-52.0); Mean Corp Hgb Conc. 32.9 g/dL (33.0-37.0); Mean Corpuscular Hgb 30.2 pg (27.0-31.0); Mean Corpuscular Volume 91.9 fL (80.0-94.0); Mean Platelet Volume 10.8 fL (7.4-10.4); Platelet Count 152 10^3/uL (130-400); Red Blood Cell Count 3.97 10^6/uL (4.70-6.10); Red Cell Dist. Width 15.5 % (11.5-14.5); White Blood Cell Count 4.7 10^3/uL (4.8-10.8)
[2024-07-02] MEDS: LIPITOR 80 MG PO (09:07)
[2024-07-02] MEDS: PLAVIX 75 MG PO (09:07)
[2024-07-02] MEDS: PEPCID 20 MG PO (09:07)
[2024-07-02] MEDS: PROSCAR 5 MG PO (09:07)
[2024-07-02 09:27] LABS: Blood Urea Nitrogen 24 mg/dl (9-20); Calcium 9.3 mg/dl (8.4-10.2); Carbon Dioxide 32 mmol/L (22-30); Chloride 98 mmol/L (98-107); Estimated Creatinine Clearance 60 ml/min; Glucose 101 mg/dl (70-99); Magnesium 2.2 mg/dl (1.6-2.3); Potassium 3.7 mmol/L (3.5-5.1); Sodium 142 mmol/L (135-145); eGFR > 60.00
[2024-07-02 09:35] LABS: TSH Reflex To Free T4 1.81 uIU/ml (0.47-4.68)
--- NOTE | 2024-07-02 10:26 | W.PN.CARDCBS ---
Addendum entered and electronically signed by Lorenzo Alarcon MD 07/02/24 13:08:
I saw and examined the patient.
The MEDICAL OFFICE REPRESENTATIVE or PA's note was reviewed and I agree with the note.
Comment: General: Well developed, well nourished in NAD.
Neck: Supple, no JVD, HJR, carotids +2 B/L, no bruits bilaterally.
Heart: Non displaced PMI, RRR, no murmurs, No S3, S4, no rubs.
Lungs: Scattered rhonchi
Extremities: Moderate lower extremity edema bilaterally.
Neuro: Grossly nonfocal, awake, alert and oriented x3.
He remains a CHF. Will continue IV Lasix. Check echo
Original Note:
Today's Communication / Plan
-
continue IV lasix
Impression / Plan
-
PCP: Yashira Contreras MD
CDY: Miguel A Valero MD
Impression:
Acute on chronic HF with preserved EF
LE edema
cough
Permanent Afib
s/p Watchman device implant 02/02/2024
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
HTN
CAD/PCI LAD BMS 1998
Hyperlipidemia
EMILY/CPAP
RBBB
chronic HFpEF
GERD
Gout
Depression
DDD
IgA deficiency
R shoulder rep
Cardiovascular diagnostic testing:
03/22/2024 SHEMAR post watchman: Normal LV size and function, EF 55%, mildly dilated RV, normal RV function, moderate biatrial enlargement. Well-seated number 31 mm Watchman FLX pro. No thrombus on the device. No perivalvular leak. Mild MR, mild AI,
mild , moderate TR shunt across interatrial septum consistent with post transseptal puncture with recent Watchman procedure
12/09/2023 echo: Normal LV size, EF 50%, mild cLVH mild MR, mild (21/11/1.6 cm�), mild AI, mild to moderate TR
11/20/2017: Lexiscan stress test small, mild, partially reversible anterior apical defect consistent with small residual ischemia versus soft tissue attenuation artifact
Plan:
-Reports good urine output with IV Lasix since admission. Continue IV Lasix 60 mg twice daily. Weight trending down if accurate. Creatinine stable. He was taking p.o. Lasix 40 mg twice daily prior to admission
-CHF education
-Echo pending
-He has history of intolerance to spironolactone with breast tenderness. He had cough on CATALINO inhibitors and valsartan. Had edema on amlodipine and nifedipine. Diltiazem is listed as an allergy.
-Consider addition of SGLT2 inhibitor
-remains in afib with slow vent response on tele.
-post 31mm Watchman device implant 02/02/24. cont Plavix. Was not able to tolerate combination of ASA and Plavix due to nosebleeds.
-off anticoagulation as post-watchman SHEMAR showed well seated device with no leak or thrombus.
-d/w nursing
PREADMIT DATA:
83-year-old male presents for hospital admission from cardiology office today due to concerns for acute on chronic heart failure with preserved EF. He has experienced a 15 to 20 pound weight gain with worsening bilateral pitting lower extremity
edema, dyspnea on exertion with orthopnea and PND, and dry cough, that did not improve with up titration of outpatient oral diuretics. Cough has been present for a month, mostly dry but some clear sputum. No fevers, chills. proBNP 06/23/2024 was
4388. At that time he was advised to continue the higher dose of Lasix 40 mg twice daily, but had no improvement in symptoms. Patient was concerned that cough was due to nebivolol and it was stopped for a few days but restarted when cough didn't
improve.
Also with recent history of Watchman implant 02/02/2024. Post watchman SHEMAR 03/22/2024 showed well-seated Watchman device with no thrombus.. Eliquis was stopped and he was transitioned to Plavix and aspirin. He developed nosebleeds so aspirin was
stopped and he is currently on Plavix alone.
Progress Note - Banquet Cook
Subjective
Date of Service: July 02, 2024
reports good urine output. has cough
Objective
Labs:
07/02/24 07:59
07/02/24 07:59
Labs
Hgb 12.0 g/dL (13.0-18.0) L 07/02/24 07:59
Hct 36.5 % (39.0-52.0) L 07/02/24 07:59
Plt Count 152 10^3/uL (130-400) 07/02/24 07:59
Sodium 142 mmol/L (135-145) 07/02/24 07:59
Potassium 3.7 mmol/L (3.5-5.1) 07/02/24 07:59
BUN 24 mg/dl (9-20) H 07/02/24 07:59
Creatinine 0.8 mg/dL (0.7-1.3) 07/02/24 07:59
Glucose 101 mg/dl (70-99) H 07/02/24 07:59
Troponins
07/01/24
09:47
Troponin I < 0.012
Vital Signs and I&O:
Vital Signs
Temp Pulse Resp BP Pulse Ox
98.5 F 64 18 115/44 100
07/02/24 07:47 07/02/24 07:47 07/02/24 07:47 07/02/24 07:47 07/02/24 07:47
Vital Signs
Temp Pulse Resp BP Pulse Ox
98.5 F 64 18 115/44 100
07/02/24 07:47 07/02/24 07:47 07/02/24 07:47 07/02/24 07:47 07/02/24 07:47
Intake & Output
06/30/24 07/01/24 07/02/24 07/03/24
07:59 07:59 07:59 07:59
Output Total 2724 / 2724
Balance -2724 / -2724
Physical Exam
Physical Exam
GEN: No distress, awake, alert, oriented x3. sitting in chair
HEENT: supple, anicteric, mmm, eomi
LUNGS: Few crackles B/L
CV: Irreg and sarah, S1/S2, no murmur
ABD: soft, BS+, NT/ND
EXT: No cyanosis, clubbing. 3+ edema of B/L LE
NEURO: Gross non-focal
SKIN: Warm, pink, dry. No rash
[2024-07-02] MEDS: LASIX 60 MG IV ×2 (10:33→17:30)
--- NOTE | 2024-07-02 13:30 | W.PN.HOSP.TC ---
Today's Communication/Plan
-
Monitor vital signs and see plan
PT/OT
Continue with IV Lasix
Check echo
Assessment / Plan
Assessment / Plan
General: Comfortable and Conversant
HEENT: Anicteric and Moist mucous membranes
Respiratory: Clear, Non Labored Respirations and Decreased Breath Sounds (Bilateral bases)
Cardiac: S1/S2, Irregular Rhythm, Bradycardia and Murmur
GI: Soft, Non Tender and Distended
Musculoskeletal: No Clubbing, No Cyanosis and Other (+4 pitting edema bilateral lower extremities)
Skin: Warm, Dry and Other (Mild erythema bilateral lower extremities)
Neuro: Awake, Alert, Oriented and Nonfocal/grossly intact
Psych: Calm
Acute on Chronic HFpEF
-Consult Cardiology
-Echo Feb 2024: Normal left ventricular chamber size myocardial thickness and systolic function. Left ventricular ejection fraction 55%.
Check echo
-Continue Lasix 60mg IV BID
-Monitor Is&Os and Daily Weights
Coronary Artery Disease s/p LAD Stent in 1998
-Continue Plavix
Permanent Atrial Fibrillation s/p Watchman Device 01/2024
-Continue Plavix
-Hold nebivolol due to relative bradycardia
Hyperlipidemia
-Continue atorvastatin
BPH
-Continue finasteride
GERD
-Continue famotidine
Hx Traumatic Intracranial Hemorrhage 08/2023
DVT proph: Lovenox
Code Status: DNR
I spent a total of 51 minutes with the patient or on the floor. More than 50% of this time involved counseling and coordination of care.
Anticipated Discharge: > 48 hours
Subjective/Interval History
-
Date of Service: July 02, 2024
denies pain
Objective Data
-
Labs:
Laboratory Results
07/02/24
07:59
WBC 4.7 L
Hgb 12.0 L
Hct 36.5 L
Plt Count 152
Sodium 142
Potassium 3.7
Chloride 98
Carbon Dioxide 32 H
BUN 24 H
Creatinine 0.8
Glucose 101 H
Calcium 9.3
Vital Signs:
Vital Signs
Temp Pulse Resp BP Pulse Ox
97.5 F 51 18 113/58 100
07/02/24 11:21 07/02/24 11:21 07/02/24 11:21 07/02/24 11:21 07/02/24 11:21
I&O
07/01/24 07/02/24 07/03/24
06:59 06:59 06:59
Output Total 7605 / 272
Balance -2724 / -2724
[2024-07-02] MEDS: LOVENOX 40 MG SC (17:35)
[2024-07-02] MEDS: LIDOCAINE 4% PATCH 1 PATCH TOPICAL (21:16)
[2024-07-03 03:42] VITALS: BP 104/55
[2024-07-03 05:49] VITALS: BMI 24.8
[2024-07-03 07:41] VITALS: BP 135/60
[2024-07-03] MEDS: LASIX 60 MG IV ×2 (08:01→17:47)
[2024-07-03] MEDS: LIPITOR 80 MG PO (09:25)
[2024-07-03] MEDS: PEPCID 20 MG PO (09:25)
[2024-07-03] MEDS: PLAVIX 75 MG PO (09:25)
[2024-07-03 09:26] LABS: Blood Urea Nitrogen 32 mg/dl (9-20); Calcium 9.5 mg/dl (8.4-10.2); Carbon Dioxide 28 mmol/L (22-30); Chloride 102 mmol/L (98-107); Estimated Creatinine Clearance 60 ml/min; Glucose 106 mg/dl (70-99); Potassium 3.9 mmol/L (3.5-5.1); Sodium 145 mmol/L (135-145); eGFR > 60.00
[2024-07-03] MEDS: PROSCAR 5 MG PO (09:26)
--- NOTE | 2024-07-03 09:45 | W.PN.CARDCBS ---
Today's Communication / Plan
-
Continue IV Lasix
Check echo
Might consider Farxiga versus Jardiance
Impression / Plan
-
PCP: Yashira Contreras MD
CDY: Miguel A Valero MD
Impression:
Acute on chronic HF with preserved EF
LE edema
cough
Permanent Afib
s/p Watchman device implant 02/02/2024
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
HTN
CAD/PCI LAD BMS 1998
Hyperlipidemia
EMILY/CPAP
RBBB
chronic HFpEF
GERD
Gout
Depression
DDD
IgA deficiency
R shoulder rep
Cardiovascular diagnostic testing:
03/22/2024 SHEMAR post watchman: Normal LV size and function, EF 55%, mildly dilated RV, normal RV function, moderate biatrial enlargement. Well-seated number 31 mm Watchman FLX pro. No thrombus on the device. No perivalvular leak. Mild MR, mild AI,
mild , moderate TR shunt across interatrial septum consistent with post transseptal puncture with recent Watchman procedure
12/09/2023 echo: Normal LV size, EF 50%, mild cLVH mild MR, mild (21/11/1.6 cm�), mild AI, mild to moderate TR
11/20/2017: Lexiscan stress test small, mild, partially reversible anterior apical defect consistent with small residual ischemia versus soft tissue attenuation artifact
Plan:
He has had good diuresis and weight is down 5 pounds in the past 24 hours
He initially refused lab but now agrees to get labs done
He has history of intolerance to spironolactone with breast tenderness. He had cough on CATALINO inhibitors and valsartan. Had edema on amlodipine and nifedipine. Diltiazem is listed as an allergy.
Consider addition of SGLT2 inhibitor
remains in afib with slow vent response on tele. s/post 31mm Watchman device implant 02/02/24. cont Plavix. Was not able to tolerate combination of ASA and Plavix due to nosebleeds.
PREADMIT DATA:
83-year-old male presents for hospital admission from cardiology office today due to concerns for acute on chronic heart failure with preserved EF. He has experienced a 15 to 20 pound weight gain with worsening bilateral pitting lower extremity
edema, dyspnea on exertion with orthopnea and PND, and dry cough, that did not improve with up titration of outpatient oral diuretics. Cough has been present for a month, mostly dry but some clear sputum. No fevers, chills. proBNP 06/23/2024 was
4388. At that time he was advised to continue the higher dose of Lasix 40 mg twice daily, but had no improvement in symptoms. Patient was concerned that cough was due to nebivolol and it was stopped for a few days but restarted when cough didn't
improve.
Also with recent history of Watchman implant 02/02/2024. Post watchman SHEMAR 03/22/2024 showed well-seated Watchman device with no thrombus.. Eliquis was stopped and he was transitioned to Plavix and aspirin. He developed nosebleeds so aspirin was
stopped and he is currently on Plavix alone.
Progress Note - Social Service Technician
Subjective
Date of Service: July 03, 2024
No complaints per
Objective
Labs:
07/03/24 08:51
Labs
Hgb 12.0 g/dL (13.0-18.0) L 07/02/24 07:59
Hct 36.5 % (39.0-52.0) L 07/02/24 07:59
Plt Count 152 10^3/uL (130-400) 07/02/24 07:59
Sodium 145 mmol/L (135-145) 07/03/24 08:51
Potassium 3.9 mmol/L (3.5-5.1) 07/03/24 08:51
BUN 32 mg/dl (9-20) H 07/03/24 08:51
Creatinine 0.8 mg/dL (0.7-1.3) 07/03/24 08:51
Glucose 106 mg/dl (70-99) H 07/03/24 08:51
Troponins
07/01/24
09:47
Troponin I < 0.012
Vital Signs and I&O:
Vital Signs
Temp Pulse Resp BP Pulse Ox
97.8 F 55 18 135/60 96
07/03/24 07:41 07/03/24 08:01 07/03/24 07:41 07/03/24 08:01 07/03/24 07:41
Vital Signs
Temp Pulse Resp BP Pulse Ox
97.8 F 55 18 135/60 96
07/03/24 07:41 07/03/24 08:01 07/03/24 07:41 07/03/24 08:01 07/03/24 07:41
Intake & Output
07/01/24 07/02/24 07/03/24 07/04/24
06:59 06:59 06:59 06:59
Intake Total 720 / 720
Output Total 2725 / 2725 1935 / 1934
Balance -2725 / -2725 -1215 / -1215
Physical Exam
Physical Exam
General: Well developed, well nourished in NAD.
Neck: Supple, no JVD, HJR, carotids +2 B/L, no bruits bilaterally.
Heart: Non displaced PMI, irregular, no murmurs, No S3, S4, no rubs.
Lungs: Scattered rhonchi
Extremities: Mild lower extremity edema bilaterally.
Neuro: Grossly nonfocal, awake, alert and oriented x3.
[2024-07-03 11:05] VITALS: BP 114/56
[2024-07-03 12:23] LABS: % Basophils 0.6 % (0-2); % Eosinophils 3.7 % (0-6); % Immature Granulocytes 0.2 % (0-0.5); % Lymphocytes 19.9 % (20.5-51.1); % Monocytes 18.5 % (1.7-9.3); % Neutrophils 57.1 % (42.2-75.2); Absolute Eosinophils 0.2 10^3/uL (0-0.7); Absolute Lymphocytes 1.1 10^3/uL (1.2-3.4); Absolute Neutrophils 3.1 10^3/uL (1.4-6.5); Hematocrit 35.2 % (39.0-52.0); Hemoglobin 11.5 g/dL (13.0-18.0); Mean Corp Hgb Conc. 32.7 g/dL (33.0-37.0); Mean Corpuscular Hgb 29.6 pg (27.0-31.0); Mean Corpuscular Volume 90.7 fL (80.0-94.0); Mean Platelet Volume 10.6 fL (7.4-10.4); Nucleated Red Blood Cells % 0 % (-); Platelet Count 152 10^3/uL (130-400); Red Blood Cell Count 3.88 10^6/uL (4.70-6.10); Red Cell Dist. Width 15.5 % (11.5-14.5); White Blood Cell Count 5.3 10^3/uL (4.8-10.8)
--- NOTE | 2024-07-03 13:31 | W.PN.HOSP.TC ---
Today's Communication/Plan
-
monitor vital signs
see plan
Check echo
Continue with IV diuresis
PT/OT
Assessment / Plan
Assessment / Plan
General: Comfortable and Conversant
HEENT: Anicteric and Moist mucous membranes
Respiratory: Clear, Non Labored Respirations and Decreased Breath Sounds (Bilateral bases)
Cardiac: S1/S2, Irregular Rhythm, Bradycardia and Murmur
GI: Soft, Non Tender and Distended
Musculoskeletal: No Clubbing, No Cyanosis and Other (+4 pitting edema bilateral lower extremities)
Skin: Other (Mild erythema bilateral lower extremities)
Neuro: Awake, Alert, Oriented and Nonfocal/grossly intact
Psych: Calm
Acute on Chronic HFpEF
-Consult Cardiology
-Echo Feb 2024: Normal left ventricular chamber size myocardial thickness and systolic function. Left ventricular ejection fraction 55%.
Check echo
-Continue Lasix 60mg IV BID
-Monitor Is&Os and Daily Weights
Coronary Artery Disease s/p LAD Stent in 1998
-Continue Plavix
Permanent Atrial Fibrillation s/p Watchman Device 01/2024
-Continue Plavix
-Hold nebivolol due to relative bradycardia
Hyperlipidemia
-Continue atorvastatin
BPH
-Continue finasteride
GERD
-Continue famotidine
Hx Traumatic Intracranial Hemorrhage 08/2023
DVT proph: Lovenox
Code Status: DNR
I spent a total of 52 minutes with the patient or on the floor. More than 50% of this time involved counseling and coordination of care.
Anticipated Discharge: 24 - 48 hours
Subjective/Interval History
-
Date of Service: July 03, 2024
Denies pain
Objective Data
-
Labs:
Laboratory Results
07/03/24 07/03/24
08:51 12:08
WBC 5.3
Hgb 11.5 L
Hct 35.2 L
Plt Count 152
Sodium 145
Potassium 3.9
Chloride 102
Carbon Dioxide 28
BUN 32 H
Creatinine 0.8
Glucose 106 H
Calcium 9.5
Vital Signs:
Vital Signs
Temp Pulse Resp BP Pulse Ox
98.2 F 56 18 114/56 97
07/03/24 11:05 07/03/24 11:05 07/03/24 11:05 07/03/24 11:05 07/03/24 11:05
I&O
07/02/24 07/03/24 07/04/24
06:59 06:59 06:59
Intake Total 720 / 720
Output Total 5 / 5 1934 / 1934
Balance -2725 / -2725 -1215 / -1215
[2024-07-03 14:41] VITALS: BP 113/55
[2024-07-03] MEDS: LOVENOX 40 MG SC (17:40)
[2024-07-03 19:40] VITALS: BP 124/52
[2024-07-03] MEDS: XANAX 0.25 MG PO (21:06)
[2024-07-03] MEDS: LIDOCAINE 4% PATCH 1 PATCH TOPICAL (21:06)
[2024-07-03 23:15] VITALS: BP 145/84
[2024-07-04] VITALS (7 sets, daily range): BP systolic 105–123; BP diastolic 52–83; PULSE 90; BMI 24.7
[2024-07-04 08:38] LABS: % Basophils 0.7 % (0-2); % Eosinophils 4.1 % (0-6); % Immature Granulocytes 0.3 % (0-0.5); % Monocytes 15.4 % (1.7-9.3); % Neutrophils 57.5 % (42.2-75.2); Absolute Eosinophils 0.3 10^3/uL (0-0.7); Absolute Lymphocytes 1.3 10^3/uL (1.2-3.4); Absolute Monocytes 0.9 10^3/uL (0.1-0.6); Absolute Neutrophils 3.5 10^3/uL (1.4-6.5); Hematocrit 39.1 % (39.0-52.0); Mean Corp Hgb Conc. 33.2 g/dL (33.0-37.0); Mean Corpuscular Hgb 30.4 pg (27.0-31.0); Mean Corpuscular Volume 91.6 fL (80.0-94.0); Nucleated Red Blood Cells % 0 % (-); Platelet Count 167 10^3/uL (130-400); Red Blood Cell Count 4.27 10^6/uL (4.70-6.10); Red Cell Dist. Width 15.5 % (11.5-14.5)
[2024-07-04] MEDS: LASIX 60 MG IV ×2 (09:05→15:48)
[2024-07-04 09:08] LABS: Blood Urea Nitrogen 33 mg/dl (9-20); Calcium 9.1 mg/dl (8.4-10.2); Carbon Dioxide 36 mmol/L (22-30); Chloride 97 mmol/L (98-107); Estimated Creatinine Clearance 60 ml/min; Glucose 87 mg/dl (70-99); Potassium 3.5 mmol/L (3.5-5.1); Sodium 142 mmol/L (135-145); eGFR > 60.00
[2024-07-04] MEDS: PLAVIX 75 MG PO (09:08)
[2024-07-04] MEDS: PEPCID 20 MG PO (09:08)
[2024-07-04] MEDS: LIPITOR 80 MG PO (09:08)
[2024-07-04] MEDS: PROSCAR 5 MG PO (09:08)
--- NOTE | 2024-07-04 11:29 | W.PN.CARDCBS ---
Addendum entered and electronically signed by Lorenzo Alarcon MD 07/04/24 13:23:
I saw and examined the patient.
The SHOWER DOORS AND PANELS FABRICATOR or PA's note was reviewed and I agree with the note.
Comment: General: Well developed, well nourished in NAD.
Neck: Supple, no JVD, HJR, carotids +2 B/L, no bruits bilaterally.
Heart: Non displaced PMI, irregular, no murmurs, No S3, S4, no rubs.
Lungs: Scattered rhonchi
Extremities: No clubbing, cyanosis or edema bilaterally.
Neuro: Grossly nonfocal, awake, alert and oriented x3.
He has diuresed significantly. Weight is currently 143 pounds and he claims his dry weight is 140 pounds. Will try another day of IV Lasix. Echocardiogram similar to prior study except right ventricle appears hypokinetic.
Original Note:
Today's Communication / Plan
-
Cont Lasix 60 mg IV BID
Impression / Plan
-
PCP: Yashira Contreras MD
CDY: Miguel A Valero MD
Impression:
Acute on chronic HF with preserved EF
LE edema
cough
Permanent Afib
s/p Watchman device implant 02/02/2024
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
HTN
CAD/PCI LAD BMS 1998
Hyperlipidemia
EMILY/CPAP
RBBB
chronic HFpEF
GERD
Gout
Depression
DDD
IgA deficiency
R shoulder rep
11/20/2017: Lexiscan stress test small, mild, partially reversible anterior apical defect consistent with small residual ischemia versus soft tissue attenuation artifact
Echo 12/09/23: Normal LV size, EF 50%, mild cLVH mild MR, mild (21/11/1.6 cm�), mild AI, mild to moderate TR
SHEMAR post watchman 03/22/24: Normal LV size and function, EF 55%, mildly dilated RV, normal RV function, moderate biatrial enlargement. Well-seated number 31 mm Watchman FLX pro. No thrombus on the device. No perivalvular leak. Mild MR, mild AI,
mild , moderate TR shunt across interatrial septum consistent with post transseptal puncture with recent Watchman procedure
Echo 07/04/24: EF 55 to 60%, mild MR, mild peak/mean 22/12 mmHg, moderate to severe TR with PAP 58 mmHg, severely dilated RA, dilated and hypokinetic RV
Plan:
-Weight down 15 lbs this admission depending on accuracy of weights and patient feels weight loss is actually closer to 22 lbs compared to his home scale. Patient reports symptomatic improvement in SOB, but ongoing cough which upsets him.
-Cont Lasix 60 mg IV BID. Cre stable at 0.8. Patient was taking Lasix 40 mg PO BID prior to admission
-EF preserved and stable by echo.
-No CATALINO/ARB due to cough with CATALINO and ARB in the past
-Cont nebivolol 5 mg HS
-Patient is not on spironolactone due to breast tenderness with spironolactone in the past.
-Patient is not interested in trying SGLT-2
-CXR on admission 07/01/24 without acute disease. Offered a trial of Robitussin and patient says he already tried it and it does not work, no Robitussin on AUG. Reviewed that cough could be due to resolving CHF which patient dismissed. TT to
hospitalist attending to review and see if any other interventions would be appropriate.
-Patient with known permanent Afib.
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 Patient should remain on Plavix until 09/20/23. Patient was not able to tolerate the standard 6 month DAPT due to epistaxis
PREADMIT DATA:
83-year-old male presents for hospital admission from cardiology office today due to concerns for acute on chronic heart failure with preserved EF. He has experienced a 15 to 20 pound weight gain with worsening bilateral pitting lower extremity
edema, dyspnea on exertion with orthopnea and PND, and dry cough, that did not improve with up titration of outpatient oral diuretics. Cough has been present for a month, mostly dry but some clear sputum. No fevers, chills. proBNP 06/23/2024 was
4388. At that time he was advised to continue the higher dose of Lasix 40 mg twice daily, but had no improvement in symptoms. Patient was concerned that cough was due to nebivolol and it was stopped for a few days but restarted when cough didn't
improve.
Also with recent history of Watchman implant 02/02/2024. Post watchman SHEMAR 03/22/2024 showed well-seated Watchman device with no thrombus.. Eliquis was stopped and he was transitioned to Plavix and aspirin. He developed nosebleeds so aspirin was
stopped and he is currently on Plavix alone.
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
Subjective
Date of Service: July 04, 2024
He says he is coughing and this upsets him, he feels he should be completely better by now
Objective
Labs:
07/04/24 07:01
07/04/24 07:01
Labs
Hgb 13.0 g/dL (13.0-18.0) 07/04/24 07:01
Hct 39.1 % (39.0-52.0) 07/04/24 07:01
Plt Count 167 10^3/uL (130-400) 07/04/24 07:01
Sodium 142 mmol/L (135-145) 07/04/24 07:01
Potassium 3.5 mmol/L (3.5-5.1) 07/04/24 07:01
BUN 33 mg/dl (9-20) H 07/04/24 07:01
Creatinine 0.8 mg/dL (0.7-1.3) 07/04/24 07:01
Glucose 87 mg/dl (70-99) 07/04/24 07:01
Vital Signs and I&O:
Vital Signs
Temp Pulse Resp BP Pulse Ox
97.6 F 59 16 105/83 100
07/04/24 07:20 07/04/24 07:20 07/04/24 07:20 07/04/24 07:20 07/04/24 07:20
Vital Signs
Temp Pulse Resp BP Pulse Ox
97.6 F 59 16 105/83 100
07/04/24 07:20 07/04/24 07:20 07/04/24 07:20 07/04/24 07:20 07/04/24 07:20
Intake & Output
07/02/24 07/03/24 07/04/24 07/05/24
06:59 06:59 06:59 06:59
Intake Total 720 / 720 1440 / 1440
Output Total 2725 / 2725 1935 / 1935 2074 / 2074
Balance -2725 / -2725 -1215 / -1215 -635 / -635
Physical Exam
Physical Exam
GEN: AAOx3
HEENT: EOMI
LUNGS: RA. No audible wheeze
CV: Afib on tele as reviewed by me
ABD: ND
EXT: No edema B/L
NEURO: Gross non-focal
SKIN: No rash
--- NOTE | 2024-07-04 16:15 | W.PN.HOSP.TC ---
Today's Communication/Plan
-
Continue IV diuresis
Monitor cough, consider trial of benzonatate
Trend weights, BMP
Hold nebivolol for relative bradycardia
Assessment / Plan
Assessment / Plan
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
#Pulmonary hypertension
-Echocardiogram here showed preserved LVEF though severe RV systolic dysfunction
-Has significant pulmonary hypertension now etiology is unclear, presumed group 2 with HFpEF history
-Not currently on GDMT; Home medications include Lasix 40 mg twice daily
-Transition to IV Lasix 60 mg twice daily here, weight down near 15 pounds
-Does have significant symptoms still, possibly due to poor RV function
-Continue IV Lasix for now, trend BMP closely and I's/O's
-Avoid CATALINO/ARB due to associated cough in the past
-Could consider GDMT with SGLT2 or MRA
#Persistent cough
-Suspect that this is related to severely enlarged left atrium, impingement on recurrent laryngeal nerve
-Optimistically this will improve as he continues to diuresis though may be chronic issue at this point
-Will continue to monitor, trial benzonatate if needed for symptomatic relief
#CAD s/p LAD stent
#Dyslipidemia
-Placed in 1998; Home meds include nebivolol, Plavix, high intensity statin
-No signs or symptoms of coronary ischemia throughout this hospitalization
#Permanent AF s/p Watchman device
-Watchman device placed in January 2024
-No longer on full dose anticoagulants
-Does take nebivolol nightly at home, held for bradycardia
-Heart rate currently near 60/min
#BPH
-Home medications include finasteride, not on alpha-1 inhibitor
-No signs of urine retention at this time
#GERD
-Not currently on PPI therapy, does take famotidine twice daily
-No known history of Clement's esophagus or erosive disease
#H/O traumatic ICH
#H/O IgA deficiency
DVT prophylaxis: Lovenox
Diet: Cholesterol-lowering
CODE STATUS: DNR
Anticipated Discharge: 24 - 48 hours
Subjective/Interval History
-
Date of Service: July 04, 2024
Seen and examined at the bedside. No acute events reported overnight. AFVSS this morning on room air
He continues to complain of a persistent dry cough. States it is very bothersome. Denies dyspnea, wheezing
Denies any acute complaints as of this morning
Objective Data
-
Labs:
Laboratory Results
07/04/24
07:01
WBC 6.0
Hgb 13.0
Hct 39.1
Plt Count 167
Sodium 142
Potassium 3.5
Chloride 97 L
Carbon Dioxide 36 H
BUN 33 H
Creatinine 0.8
Glucose 87
Calcium 9.1
Vital Signs:
Vital Signs
Temp Pulse Resp BP Pulse Ox
99 F 80 16 123/52 98
07/04/24 15:24 07/04/24 15:24 07/04/24 15:24 07/04/24 15:24 07/04/24 15:24
I&O
07/03/24 07/04/24 07/05/24
06:59 06:59 06:59
Intake Total 720 / 720 1440 / 1440
Output Total 1934 / 1934
Balance -1215 / -1215 -635 / -635
Review of Systems
-
History Source: Patient
All other systems: Reviewed and negative
Physical Exam
-
General: Well Developed, Well Nourished, No Apparent Distress and Comfortable
HEENT: Normocephalic, Atraumatic, Moist Mucous Membranes and Anicteric
Respiratory: Crackles (Bibasilar) and Non Labored Respirations; Negative Accessory Resp Muscle Use
Cardiac: Regular Rhythm and S1/S2; Negative Murmur, Rub or Gallop
GI: Soft, Nontender, Nondistended and Normal Bowel Sounds
Musculoskeletal: No Clubbing, No Cyanosis and No Edema
Skin: Warm and Dry; Negative Rash
Neuro: AO x 3 and Nonfocal/Grossly Intact
Psych: Calm
Data Reviewed
-
Labs: Labs Reviewed by me, Discussed with Physician (Cardiology) and Discussed with Patient
--- NOTE | 2024-07-04 16:31 | CM ---
manager database reviewed patient's chart and met with patient and patient lives alone in a one story home, one step to enter, patient is independent with adl's and uses a cane or walker with ambulation, patient also uses a wheelchair. per patient he
has benefits [facility] the [facility] and shoe caser will reach out to [facility] to see how patient's prescriptions are covered.
Plan; Home when stable
[facility]
[2024-07-04] MEDS: LOVENOX 40 MG SC (17:21)
[2024-07-04] MEDS: XANAX 0.25 MG PO (21:40)
[2024-07-04] MEDS: LIDOCAINE 4% PATCH 1 PATCH TOPICAL (21:40)
[2024-07-05 03:00] VITALS: BP 130/61
[2024-07-05 06:00] VITALS: BMI 24.0
[2024-07-05 07:26] VITALS: BP 141/63
[2024-07-05 07:58] LABS: % Basophils 0.5 % (0-2); % Eosinophils 3.3 % (0-6); % Immature Granulocytes 0.2 % (0-0.5); % Lymphocytes 20.4 % (20.5-51.1); % Monocytes 16.4 % (1.7-9.3); % Neutrophils 59.2 % (42.2-75.2); Absolute Eosinophils 0.2 10^3/uL (0-0.7); Absolute Lymphocytes 1.3 10^3/uL (1.2-3.4); Absolute Monocytes 1.1 10^3/uL (0.1-0.6); Absolute Neutrophils 3.9 10^3/uL (1.4-6.5); Hematocrit 41.2 % (39.0-52.0); Hemoglobin 13.5 g/dL (13.0-18.0); Mean Corp Hgb Conc. 32.8 g/dL (33.0-37.0); Mean Corpuscular Hgb 30.1 pg (27.0-31.0); Mean Corpuscular Volume 91.8 fL (80.0-94.0); Mean Platelet Volume 10.9 fL (7.4-10.4); Nucleated Red Blood Cells % 0 % (-); Platelet Count 176 10^3/uL (130-400); Red Blood Cell Count 4.49 10^6/uL (4.70-6.10); Red Cell Dist. Width 15.2 % (11.5-14.5); White Blood Cell Count 6.6 10^3/uL (4.8-10.8)
[2024-07-05 08:35] LABS: Blood Urea Nitrogen 30 mg/dl (9-20); Carbon Dioxide 37 mmol/L (22-30); Chloride 95 mmol/L (98-107); Estimated Creatinine Clearance 60 ml/min; Glucose 92 mg/dl (70-99); Magnesium 2.2 mg/dl (1.6-2.3); Sodium 141 mmol/L (135-145); eGFR > 60.00
[2024-07-05] MEDS: KCL 40 MEQ PO ×2 (09:07→12:25)
[2024-07-05] MEDS: PLAVIX 75 MG PO (09:07)
[2024-07-05] MEDS: PEPCID 20 MG PO (09:08)
[2024-07-05] MEDS: LIPITOR 80 MG PO (09:08)
[2024-07-05] MEDS: PROSCAR 5 MG PO (09:08)
[2024-07-05] MEDS: LASIX 60 MG IV (09:08)
--- NOTE | 2024-07-05 09:33 | CM ---
Addendum entered by Teresa Shrestha 07/05/24 11:44:
Patient is for possible discharge to home today if patient needs any medications he is requesting a script and [facility] and [facility].
Original Note:
correctional counselor/case manager continues to follow with patient and patient is a and patient belongs to [facility] [phone], Pharmacy [phone] . Per the [facility] patient's medications are [facility] by the [facility] and the most he would have to
pay is $11 per month copay.
[facility]
Plan; Home when stable.
[2024-07-05 09:38] VITALS: BP 147/74
[2024-07-05 11:21] VITALS: BP 118/54
--- NOTE | 2024-07-05 11:34 | W.PN.HOSP.TC ---
Today's Communication/Plan
-
Transition to oral Lasix with potassium supplement
BMP in 5 days as OP
Discharge
Assessment / Plan
Assessment / Plan
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
#Pulmonary hypertension
-Echocardiogram here showed preserved LVEF though severe RV systolic dysfunction
-Has significant pulmonary hypertension now etiology is unclear, presumed group 2 with HFpEF history
-Not currently on GDMT; Home medications include Lasix 40 mg twice daily
-Transition to IV Lasix 60 mg twice daily here, weight down near 15 pounds
-Does have significant symptoms still, possibly due to poor RV function
-Continue IV Lasix for now, trend BMP closely and I's/O's
-Transition to oral Lasix 60 mg twice daily, 20 mEq KCl daily
-BMP 3 to 5 days after discharge
#Persistent cough
-Suspect that this is related to severely enlarged left atrium, impingement on recurrent laryngeal nerve
-Optimistically this will improve as he continues to diuresis though may be chronic issue at this point
-Trial benzonatate, will give short course after discharge if efficacious
#CAD s/p LAD stent
#Dyslipidemia
-Placed in 1998; Home meds include nebivolol, Plavix, high intensity statin
-No signs or symptoms of coronary ischemia throughout this hospitalization
#Permanent AF s/p Watchman device
-Watchman device placed in January 2024
-No longer on full dose anticoagulants
-Does take nebivolol nightly at home, held for bradycardia
-Currently in rate controlled AF
#BPH
-Home medications include finasteride, not on alpha-1 inhibitor
-No signs of urine retention at this time
#GERD
-Not currently on PPI therapy, does take famotidine twice daily
-No known history of Clement's esophagus or erosive disease
#Hypokalemia secondary to IV Lasix
-40 mEq x 2 of KCl given prior to DC
#H/O traumatic ICH
#H/O IgA deficiency
DVT prophylaxis: Lovenox
Diet: Cholesterol-lowering
CODE STATUS: DNR
Anticipated Discharge: Today
Subjective/Interval History
-
Date of Service: July 05, 2024
Seen and examined at the bedside. No acute events reported overnight. AFVSS this morning
States that he feels well, still has a cough that is annoying but otherwise states he is ready to go home
Denies any acute complaints
Objective Data
-
Labs:
Laboratory Results
07/05/24
07:14
WBC 6.6
Hgb 13.5
Hct 41.2
Plt Count 176
Sodium 141
Potassium 3.0 L
Chloride 95 L
Carbon Dioxide 37 H
BUN 30 H
Creatinine 0.8
Glucose 92
Calcium 9.0
Vital Signs:
Vital Signs
Temp Pulse Resp BP Pulse Ox
98.1 F 81 18 118/54 99
07/05/24 11:21 07/05/24 11:21 07/05/24 11:21 07/05/24 11:21 07/05/24 11:21
I&O
07/04/24 07/05/24 07/06/24
06:59 06:59 06:59
Intake Total 1440 / 1440 1440 / 1440
Output Total 2074 / 2074 2800 / 2800
Balance -635 / -635 -1360 / -1360
Review of Systems
-
History Source: Patient
All other systems: Reviewed and negative
Physical Exam
-
General: Well Developed, Well Nourished, No Apparent Distress and Comfortable
HEENT: Normocephalic, Atraumatic, Moist Mucous Membranes and Anicteric
Respiratory: Clear to Auscultation and Non Labored Respirations
Cardiac: S1/S2 and Irregular Rhythm; Negative Murmur, Rub, JVD, Gallop or Tachycardic
GI: Soft, Nontender, Nondistended and Normal Bowel Sounds
Musculoskeletal: No Clubbing, No Cyanosis and No Edema
Skin: Warm and Dry; Negative Rash
Neuro: AO x 3 and Nonfocal/Grossly Intact
Psych: Calm
Data Reviewed
-
Labs: Labs Reviewed by me, Discussed with Physician (Cardiology) and Discussed with Patient
[2024-07-05] MEDS: TESSALON PERLES 100 MG PO (12:25)
--- NOTE | 2024-07-05 13:31 | W.PN.CARDCBS ---
Addendum entered and electronically signed by Miguel A Shepard MD 07/05/24 14:42:
Attending addendum: Patient seen and examined. He will be assessed in the office later this week. Generally feeling well. Breathing better cough slightly improved. Overall euvolemic and stable for discharge.
Original Note:
Today's Communication / Plan
-
Lasix 60 mg PO BID
Holding nebivolol due to bradycardia overnight, will reassess in the office
Impression / Plan
-
PCP: Dr. Kyrie Navarro
CDY: Miguel A Valero MD
Impression:
Acute on chronic HF with preserved EF
LE edema
cough
Permanent Afib
s/p Watchman device implant 02/02/2024
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
HTN
CAD/PCI LAD BMS 1998
Hyperlipidemia
EMILY/CPAP
RBBB
chronic HFpEF
GERD
Gout
Depression
DDD
IgA deficiency
R shoulder rep
Lexiscan stress test 11/20/2017: small, mild, partially reversible anterior apical defect consistent with small residual ischemia versus soft tissue attenuation artifact
Echo 12/09/23: Normal LV size, EF 50%, mild cLVH mild MR, mild (21/11/1.6 cm�), mild AI, mild to moderate TR
SHEMAR post watchman 03/22/24: Normal LV size and function, EF 55%, mildly dilated RV, normal RV function, moderate biatrial enlargement. Well-seated number 31 mm Watchman FLX pro. No thrombus on the device. No perivalvular leak. Mild MR, mild AI,
mild , moderate TR shunt across interatrial septum consistent with post transseptal puncture with recent Watchman procedure
Echo 07/04/24: EF 55 to 60%, mild MR, mild peak/mean 22/12 mmHg, moderate to severe TR with PAP 58 mmHg, severely dilated RA, dilated and hypokinetic RV
Plan:
-Weight is down another 4 lbs overnight for a total of 19 lbs based on scales at and 26 lbs according to patient who references his home scale. Discharge weight is 139 lbs on 07/05/24.
-Patient was diuresed with Lasix 60 mg IV BID and will be d/c'd to home on Lasix 60 mg PO BID, patient was taking Lasix 40 mg BID prior to admission.
-EF preserved and stable by echo.
-No CATALINO/ARB due to cough with CATALINO and ARB in the past
-Outpatient dose of nebivolol 5 mg HS has been placed on hold on day of d/c due to overnight bradycardia. Can reassess in the office on 07/07/24 and restart if HR stable.
-Patient is not on spironolactone due to breast tenderness with spironolactone in the past.
-Patient is not interested in trying SGLT-2
-Patient with known permanent Afib. Nebivolol as above.
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 Patient should remain on Plavix until 09/20/23. Patient was not able to tolerate the standard 6 month DAPT due to epistaxis
-Cardiology f/u arranged
PREADMIT DATA:
83-year-old male presents for hospital admission from cardiology office today due to concerns for acute on chronic heart failure with preserved EF. He has experienced a 15 to 20 pound weight gain with worsening bilateral pitting lower extremity
edema, dyspnea on exertion with orthopnea and PND, and dry cough, that did not improve with up titration of outpatient oral diuretics. Cough has been present for a month, mostly dry but some clear sputum. No fevers, chills. proBNP 06/23/2024 was
4388. At that time he was advised to continue the higher dose of Lasix 40 mg twice daily, but had no improvement in symptoms. Patient was concerned that cough was due to nebivolol and it was stopped for a few days but restarted when cough didn't
improve.
Also with recent history of Watchman implant 02/02/2024. Post watchman SHEMAR 03/22/2024 showed well-seated Watchman device with no thrombus.. Eliquis was stopped and he was transitioned to Plavix and aspirin. He developed nosebleeds so aspirin was
stopped and he is currently on Plavix alone.
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
Subjective
Date of Service: July 05, 2024
He is still coughing, but nonproductive
Objective
Labs:
07/05/24 07:14
07/05/24 07:14
Labs
Hgb 13.5 g/dL (13.0-18.0) 07/05/24 07:14
Hct 41.2 % (39.0-52.0) 07/05/24 07:14
Plt Count 176 10^3/uL (130-400) 07/05/24 07:14
Sodium 141 mmol/L (135-145) 07/05/24 07:14
Potassium 3.0 mmol/L (3.5-5.1) L 07/05/24 07:14
BUN 30 mg/dl (9-20) H 07/05/24 07:14
Creatinine 0.8 mg/dL (0.7-1.3) 07/05/24 07:14
Glucose 92 mg/dl (70-99) 07/05/24 07:14
Vital Signs and I&O:
Vital Signs
Temp Pulse Resp BP Pulse Ox
98.1 F 81 18 118/54 99
07/05/24 11:21 07/05/24 11:21 07/05/24 11:21 07/05/24 11:21 07/05/24 11:21
Vital Signs
Temp Pulse Resp BP Pulse Ox
98.1 F 81 18 118/54 99
07/05/24 11:21 07/05/24 11:21 07/05/24 11:21 07/05/24 11:21 07/05/24 11:21
Intake & Output
07/03/24 07/04/24 07/05/2408/25
06:59 06:59 06:59 06:59
Intake Total 720 / 720 1440 / 1440 1440 / 1440
Output Total 1934 / 1934 2074 / 2074 2800 / 2800
Balance -1215 / -1215 -635 / -635 -1360 / -1360
Physical Exam
Physical Exam
GEN: AAOx3
HEENT: EOMI
LUNGS: RA. No audible wheeze
CV: Afib on tele as reviewed by me
ABD: ND
EXT: No edema B/L
NEURO: Gross non-focal
SKIN: No rash
--- NOTE | 2024-07-05 15:21 | W.DCSUMMARY ---
Discharge Summary
Discharge Data
Date of Admission: 07/01/24
Date of Discharge: 07/05/24
-
Pending Results: No
Hospital Course
83-year-old male with HFpEF/RV failure, CAD s/p PCI, AF s/p watchman, BPH, GERD, H/O ICH that presented with decompensated right heart failure as well as symptomatic complaint of cough. Chest x-ray on arrival showed signs of pulmonary congestion
consistent with decompensated heart failure. He was started on IV diuretic regimen with 60 mg Lasix twice daily with subsequent symptomatic improvement. His home medication of nebivolol was held due to relative bradycardia while here (heart rate
low 50s). Volume status improved and he was ultimately transition to oral Lasix at 60 mg twice daily. Was given short-term prescription of KCl due to hypokalemia secondary to diuresis. Repeat TTE in the hospital redemonstrated preserved LVEF but
did show significant RV systolic dysfunction and dilation.
Concerning his cough, it was persistent throughout hospital stay despite diuresis. Review of his echocardiogram showed marked left atrial enlargement, suspect impingement upon recurrent laryngeal/phrenic nerve leading to chronic cough. He has
follow-up appointments with pulmonology and cardiology after his discharge which he was encouraged to keep. Gave him a short course of benzonatate for symptomatic relief of cough
Discharge Plan
-
Patient Disposition: Home (Routine Discharge)
Discharge Diagnosis/Procedures: Acute on chronic HFpEF/RV failure
Cough
Condition: Fair
Diet: 2 Gram Sodium and No added salt
Activity: As tolerated
Driving Restrictions: Not until seen by your Dr
Bathing Restrictions: None
Blood Work: BMP to recheck kidney function and potassium levels this upcoming Thursday
Specialty Instructions: Weigh Daily- Call MD for wt gain/loss 3 lbs overnight/5 lbs in 1 week
Activity Restrictions/Additional Instructions:
After discharge you should follow-up with your family doctor within 1 to 2 weeks
You should also have follow-up with cardiology within 1 to 2 weeks after discharge. Referral for cardiology provided below if needed. Contact office to schedule
Instructions: *[facility] Heart Failure Instructions
Referrals:
Miguel A Valero MD [Active] - 07/07/24 12:40 pm (You have an appt to see Dr. Valero's physician ssn/ssbn assistant navigator, Amber, at the [place] office on 07/07/24 at 12:40 PM. You are then scheduled to see Dr. Valero 10/06/24 at 11 AM in the [place] office. Please
call [phone] if you need to reschedule.)
UNKNOWN - PT DOES,NOT KNOW [Family Provider] -
Additional Discharge Medication Instructions: Increase Lasix to 60 mg twice daily
Start potassium chloride 20 mEq daily
Start benzonatate 100 mg twice daily as needed for cough
Stop taking nebivolol until seen by your family doctor or supply aide
Prescriptions:
New
furosemide [Lasix] 40 mg tablet
60 mg PO BID 30 Days Qty: 90 0RF
potassium chloride 20 mEq packet
20 meq PO DAILY 30 Days Qty: 30 0RF
benzonatate 100 mg capsule
100 mg PO BID PRN (Reason: cough) 7 Days Qty: 14 0RF
Continued
atorvastatin 80 MG tablet
80 mg PO DAILY
finasteride 5 mg Tablet
5 mg PO DAILY
cholecalciferol (vitamin D3) [Vitamin D3] 50 mcg (2,000 unit) Tablet
50 mcg PO DAILY
PreserVision AREDS-2 250-90-40-1 mg Capsule
1 tab PO BID
ascorbic acid (vitamin C) [Vitamin C] 1,000 mg Tablet
1,000 mg PO DAILY
lidocaine 5 % Adhesive Patch,Medicated
1 patch TOPICAL HS
fluticasone propionate 50 mcg/actuation [place],Suspension
2 spray INTRANASAL DAILYPRN PRN (Reason: congestion)
nitroglycerin [Nitrostat] 0.4 mg Tablet, Sublingual
0.4 mg SUBLINGUAL Q5M PRN (Reason: chest pain)
Systane (PF) 0.4-0.3 % Dropperette
1 drp BOTH EYES Q4HPRN PRN (Reason: dry eye)
clopidogrel [Plavix] 75 mg tablet
75 mg PO DAILY Qty: 30 5RF
famotidine 40 mg Tablet
40 mg PO BID
zinc sulfate 50 mg zinc (220 mg) capsule
220 mg PO DAILY
alprazolam 0.25 mg Tablet
0.25 mg PO HS Qty: 7 0RF
Held
nebivolol 5 mg Tablet
5 mg PO HS
Hold Instructions: Until seen by PCP or supply aide
Discontinued
furosemide 40 mg Tablet
40 mg PO BID
Discharge Orders:
Discharge Patient (As Directed); Ordered 07/05/24
Ordered By: Lorenzo Garcia
Discharge Date and Time
Print Language: GABONESE
== END 2024-07-05 16:26 | disposition home or self-care (01) | DRG 291 ==
LOC: 4 WEST ACU 14:15
PROVIDERS: Physician Assistant Medical; ADMITTING PHYSICIAN Internal Medicine; ATTENDING PHYSICIAN Internal Medicine; EMERGENCY PHYSICIAN Emergency Medicine
DX: I11.0 Hypertensive heart disease with heart failure (principal); I50.33 Acute on chronic diastolic (congestive) heart failure; I48.21 Permanent atrial fibrillation; Z87.891 Personal history of nicotine dependence; I50.82 Biventricular heart failure; I25.10 Atherosclerotic heart disease of native coronary artery without angina pectoris; Z95.5 Presence of coronary angioplasty implant and graft; Z79.02 Long term (current) use of antithrombotics/antiplatelets; Z95.818 Presence of other cardiac implants and grafts; E78.5 Hyperlipidemia, unspecified; N40.0 Benign prostatic hyperplasia without lower urinary tract symptoms; K21.9 Gastro-esophageal reflux disease without esophagitis; Z66 Do not resuscitate; Z59.89 Other problems related to housing and economic circumstances
CPT/HCPCS: 71046; 80048; 80053; 83735; 83880; 84443; 84484; 85025; 85027; 93005; 93306; 96374; 97116; 97162; 97166; 99285

== ENCOUNTER 2025-03-01 23:59 | Emergency (ER) | payer MEDICARE, BC, OTHER, SELFPAY ==
[2025-03-02 00:03] VITALS: BMI 26.2
[2025-03-02 00:07] VITALS: BP 146/57
[2025-03-02 01:00] VITALS: BP 105/53
[2025-03-02 02:00] VITALS: BP 157/62
[2025-03-02 02:04] LABS: Hematocrit 38.1 % (39.0-52.0); Hemoglobin 12.7 g/dL (13.0-18.0); Mean Corp Hgb Conc. 33.3 g/dL (33.0-37.0); Mean Corpuscular Volume 91.6 fL (80.0-94.0); Nucleated Red Blood Cells % 0 % (-); Platelet Count 112 10^3/uL (130-400); Red Cell Dist. Width 14.8 % (11.5-14.5)
[2025-03-02] MEDS: TYLENOL 1000 MG PO (02:28)
[2025-03-02 02:31] LABS: ALT (SGPT) 42 U/L (0-50); AST (SGOT) 40 U/L (17-59); Albumin 4.3 g/dl (3.5-5.0); Alkaline Phosphatase 134 U/L (38-126); Blood Urea Nitrogen 33 mg/dl (9-20); Calcium 8.8 mg/dl (8.4-10.2); Carbon Dioxide 32 mmol/L (22-30); Chloride 103 mmol/L (98-107); Estimated Creatinine Clearance 54 ml/min; Glucose 102 mg/dl (70-99); Potassium 4.6 mmol/L (3.5-5.1); Sodium 141 mmol/L (135-145); Total Protein 6.3 g/dl (6.3-8.2); eGFR > 60.00
[2025-03-02 02:37] LABS: Troponin I 0.015 ng/ml
[2025-03-02 03:00] VITALS: BP 143/57
--- NOTE | 2025-03-02 03:18 | ED.GENMED ---
History of Present Illness
General
Chief Complaint: Extremity Pain (non-traumatic)
Source: patient
Exam Limitations: none
Time Seen by Provider: 03/02/25 02:00
Nursing documentation reviewed up to this point in time: agreed with
History of Present Illness
History of Present Illness:
84-year-old male past medical history of A-fib, heart disease, previous stent, hypertension, hyperlipidemia presenting to the emergency department today with concerns of left arm pain mainly from the elbow to the wrist over the past 2 days denies
any specific injuries. Denies any specific chest pain shortness of breath nausea vomiting or diaphoresis. He did take 4 nitros prior to arrival without resolution of symptoms did have potentially slight improvement.
Past History
Past History
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 RBBB, IBS, Eczema, ) and Other (Raynaud's
disease, Right BBB Cerebral hemorrhage, Chronic venous insufficiency, back and neck pain, Neuropathy, Sleep apnea, ); Negative NIDDM
ED Past Surgical History: Cardiac (PTCA with stent to proximal LAD 1998, A. fib cardioversion March 2010, Watchman procedure), Orthopedic (carpal tunnel, ) and Other (Left lower extremity there is vein stripping, cataracts, hemorrhoidectomy,
Septoplasty. )
Social History
Tobacco: Former smoker (Cigar occasionally and didn't inhale)
Alcohol: Occasional
Drug: None
Personal:
Living: with family
Employment: Retired
Family History
Family History: Hypertension; Negative Sudden
Review of Systems
Review of Systems
Allergies reviewed?: Yes
All Other Systems: ROS reviewed and negative except as documented in HPI and ROS
Phy Exam
Physical Exam
Physical Exam:
GENERAL: Alert , in no apparent distress
EYE: pupils equal and reactive
NECK: Supple, no significant adenopathy.
ENT: o/p clr, mmm.
CARDIAC: Regular rate and rhythm .
LUNGS: Clear breath sounds bilaterally, no acute respiratory distress, no wheezes/rales/rhonchi
ABDOMEN: Soft, without focal tenderness, no r/g, no cvat
NEUROLOGICAL: Alert and oriented, no focal neuro deficits
SKIN: Warm and dry, skin intact.
MUSCULOSKELETAL: No edema, well perfused.
PSYCH: Normal and appropriate interaction.
Course
Orders/Labs/Results
Orders:
Orders
03/02/25 01:43
EKG [Electrocardiogram (*1)] Urgent
Reason for Study: Other
Other Reason for Exam: left ar pain only
EKG- Treatment ONCE
03/02/25 01:51
Complete Blood Count/With Diff Urgent
Comprehensive Metabolic Panel Urgent
Troponin I Urgent
03/02/25 02:00
Chest [CR Chest - 2 Views ] Routine
Comment:
Reason For Exam: cp arm pain
03/02/25 02:08
Acetaminophen [Tylenol] 1,000 mg PO NOW STA
Abnormal Lab Results
03/02/25
01:51
RBC 4.16 L 10^6/uL
(4.70-6.10)
Hgb 12.7 L g/dL
(13.0-18.0)
Hct 38.1 L %
(39.0-52.0)
RDW 14.8 H %
(11.5-14.5)
Plt Count 112 L 10^3/uL
(130-400)
MPV 11.3 H fL
(7.4-10.4)
Absolute Monos (auto) 0.7 H 10^3/uL
(0.1-0.6)
Monocytes % 12.6 H %
(1.7-9.3)
Carbon Dioxide 32 H mmol/L
(22-30)
BUN 33 H mg/dl
(9-20)
Glucose 102 H mg/dl
(70-99)
Total Bilirubin 1.5 H mg/dl
(0.2-1.3)
Alkaline Phosphatase 134 H U/L
(38-126)
03/02/25 01:51
03/02/25 01:51
Vital Signs
Initial and Last Documented VS:
Initial Vital Signs
Pulse Resp
70 20
03/02/25 00:06 03/02/25 00:06
Last Documented Vital Signs
Temp Pulse Resp BP Pulse Ox
98.0 F 44 24 118/62 96
03/02/25 00:11 03/02/25 04:00 03/02/25 04:00 03/02/25 04:00 03/02/25 04:00
MDM/Problems Addressed
MDM/Problems Addressed:
84-year-old male presenting to the emergency department today with concerns of left arm pain over the past 2 days. No chest pain or shortness of breath associated. Vital signs normal on arrival EKG without emergent findings labs showing slightly
elevated BUN to creatinine ratio but otherwise unremarkable. Here workup is reassuring. Patient in no distress. Troponins negative. Patient's arm pain has been for multiple days. Patient does have a history of some neck issues symptoms could be
radicular. He was advised for orthopedic follow-up. Return precautions given.
*Pulse Oximetry
SaO2: 100
Patient hypoxic: no (96)
*Critical Care Note
Total Time (30-74mins, 75-104mins- exclusive of procedures): Not Applicable
ED Attending Note
-
Portions of this chart may have been created with voice recognition software.� Occasional wrong word or��sound alike� substitutions may have occurred due to the inherent limitations of voice recognition software.
Discharge Plan
Departure
Patient Disposition: Home (Routine Discharge)
Date of Disposition: 03/02/25
Time of Disposition: 04:43
Patient with high blood pressure during this ER visit?: No
Condition: Good
Covid-19: Not Applicable
Discharge Problem:
Arm pain
Instructions: Muscle and Bone Pain (DC)
Prescriptions:
No Action
atorvastatin 80 MG tablet
80 mg PO DAILY
finasteride 5 mg Tablet
5 mg PO DAILY
cholecalciferol (vitamin D3) [Vitamin D3] 50 mcg (2,000 unit) Tablet
50 mcg PO DAILY
PreserVision AREDS-2 250-90-40-1 mg Capsule
1 tab PO BID
ascorbic acid (vitamin C) [Vitamin C] 1,000 mg Tablet
1,000 mg PO DAILY
lidocaine 5 % Adhesive Patch,Medicated
1 patch TOPICAL HS
fluticasone propionate 50 mcg/actuation [place],Suspension
2 spray INTRANASAL DAILYPRN PRN (Reason: congestion)
nitroglycerin [Nitrostat] 0.4 mg Tablet, Sublingual
0.4 mg SUBLINGUAL Q5M PRN (Reason: chest pain)
Systane (PF) 0.4-0.3 % Dropperette
1 drp BOTH EYES Q4HPRN PRN (Reason: dry eye)
nebivolol 5 mg Tablet
5 mg PO HS
clopidogrel [Plavix] 75 mg tablet
75 mg PO DAILY Qty: 30 5RF
famotidine 40 mg Tablet
40 mg PO BID
zinc sulfate 50 mg zinc (220 mg) capsule
220 mg PO DAILY
furosemide [Lasix] 40 mg tablet
60 mg PO BID 30 Days Qty: 90 0RF
potassium chloride 20 mEq packet
20 meq PO DAILY 30 Days Qty: 30 0RF
benzonatate 100 mg capsule
100 mg PO BID PRN (Reason: cough) 7 Days Qty: 14 0RF
alprazolam 0.25 mg Tablet
0.25 mg PO HS Qty: 7 0RF
Referrals:
Kyrie Navarro MD [Family Provider, Internal Medicine]
Activity Restrictions/Additional Instructions:
You came to the emergency department today with concerns of arm pain. Here you had a reassuring assessment without evidence of cardiac problems. This could be from your neck issues. Please follow closely with orthopedics and return for any
worsening or progressive symptoms.
Interventions
Interventions:
*Risk Screen - Suicide Last Done: 03/02/25 00:03
*General Assessment Last Done: 03/02/25 00:03
*Neglect/Abuse Screening Last Done: 03/02/25 00:03
*ED- Fall Risk Assessment Last Done: 03/02/25 00:03
*ED COVID-19 Vaccine History Last Done: 03/02/25 00:03
ED-Skin Assessment Last Done: 03/02/25 00:10
ED-Peripheral Vascular Assessment Last Done: 03/02/25 00:03
ED-Musculoskeletal Assessment Last Done: 03/02/25 00:03
Discharge Date and Time
Print Language: PORTUGUESE
[2025-03-02 04:00] VITALS: BP 118/62
== END 2025-03-02 05:43 | disposition home or self-care (01) ==
LOC: EMR 23:59
PROVIDERS: EMERGENCY PHYSICIAN Emergency Medicine; FAMILY PHYSICIAN Internal Medicine
DX: M79.632 Pain in left forearm (principal); I25.10 Atherosclerotic heart disease of native coronary artery without angina pectoris; I48.0 Paroxysmal atrial fibrillation; I10 Essential (primary) hypertension; E78.00 Pure hypercholesterolemia, unspecified; I45.10 Unspecified right bundle-branch block; I25.2 Old myocardial infarction; I87.2 Venous insufficiency (chronic) (peripheral); G47.30 Sleep apnea, unspecified; K21.9 Gastro-esophageal reflux disease without esophagitis; F41.9 Anxiety disorder, unspecified; I73.00 Raynaud's syndrome without gangrene; K58.9 Irritable bowel syndrome, unspecified; G62.9 Polyneuropathy, unspecified; L30.9 Dermatitis, unspecified; Z86.73 Personal history of transient ischemic attack (TIA), and cerebral infarction without residual deficits; Z95.5 Presence of coronary angioplasty implant and graft; Z87.891 Personal history of nicotine dependence; Z85.820 Personal history of malignant melanoma of skin; Z82.49 Family history of ischemic heart disease and other diseases of the circulatory system
CPT/HCPCS: 99284; 71046; 80053; 84484; 85025; 93005

== ENCOUNTER 2025-03-25 02:00 | Observation (INO) | payer MEDICARE, BC, OTHER, SELFPAY ==
[2025-03-24 19:19] VITALS: BP 116/78
[2025-03-24 19:53] LABS: Hematocrit 39.7 % (39.0-52.0); Hemoglobin 13.1 g/dL (13.0-18.0); Mean Corp Hgb Conc. 33.0 g/dL (33.0-37.0); Mean Corpuscular Volume 91.5 fL (80.0-94.0); Nucleated Red Blood Cells % 0 % (-); Platelet Count 119 10^3/uL (130-400); Red Cell Dist. Width 14.6 % (11.5-14.5)
[2025-03-24 20:03] LABS: ALT (SGPT) 69 U/L (0-50); AST (SGOT) 63 U/L (17-59); Albumin 4.7 g/dl (3.5-5.0); Alkaline Phosphatase 210 U/L (38-126); Blood Urea Nitrogen 31 mg/dl (9-20); Calcium 9.5 mg/dl (8.4-10.2); Carbon Dioxide 33 mmol/L (22-30); Chloride 100 mmol/L (98-107); Glucose 117 mg/dl (70-99); Potassium 3.7 mmol/L (3.5-5.1); Sodium 142 mmol/L (135-145); Total Protein 7.1 g/dl (6.3-8.2); eGFR > 60.00
[2025-03-24 22:48] VITALS: BP 186/74
--- NOTE | 2025-03-24 23:26 | ED.GENMED ---
ED Provider Triage
<Jaxon Stephens MD, Resident - Last Filed: 03/25/25 01:05>
-
Patient seen by provider in Triage?: Seen in Triage
History of Present Illness
<Jaxon Stephens MD, Resident - Last Filed: 03/25/25 01:05>
General
Chief Complaint: Skin Problem
Source: patient
Exam Limitations: none
Time Seen by Provider: 03/24/25 22:54
History of Present Illness
History of Present Illness:
84 y/o patient states rapidly spreading edema of the left lower leg associated with moderate constant pain. Initially started as a red spot on the bottom of his leg near ankle and started to spread upwards towards knee. Has had cellulitis 8 episodes
in the past 10 years and states this episode is similar in presentation. Not able to bear weight on the affected leg. No fever, chills,nausea, vomiting, drainage, foul odour, numbness/tingling. No preceding trauma.
Past History
<Jaxon Stephens MD, Resident - Last Filed: 03/25/25 01:05>
Past History
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 RBBB, IBS, Eczema, ) and Other (Raynaud's
disease, Right BBB Cerebral hemorrhage, Chronic venous insufficiency, back and neck pain, Neuropathy, Sleep apnea, ); Negative NIDDM
ED Past Surgical History: Cardiac (PTCA with stent to proximal LAD 1998, A. fib cardioversion March 2010, Watchman procedure), Orthopedic (carpal tunnel, ) and Other (Left lower extremity there is vein stripping, cataracts, hemorrhoidectomy,
Septoplasty. )
Social History
Tobacco: Former smoker (Cigar occasionally and didn't inhale)
Alcohol: Occasional
Drug: None
Personal:
Living: with family
Employment: Retired
Family History
Family History: Hypertension; Negative Sudden
Review of Systems
<Jaxon Stephens MD, Resident - Last Filed: 03/25/25 01:05>
Review of Systems
All Other Systems: ROS reviewed and negative except as documented in HPI and ROS
Constitutional: Denies weight loss or night sweats
EENT: Reports no symptoms
Respiratory: Reports no symptoms
Cardiac: Reports no symptoms
ABD/GI: Reports no symptoms
Psychiatric: Reports no symptoms
Phy Exam
<Jaxon Stephens MD, Resident - Last Filed: 03/25/25 01:05>
General Physical Exam
General Presentation: well appearing and no apparent distress
General Skin: warm, dry and feels hot
General Habitus: normal and elderly
General Mental: alert
Cardiovascular Exam
Cardiovascular Exam: other (systolic ejection murmur 3/6 on the right upper sternal border )
Pulmonary Exam
Pulmonary Exam: lungs clear and no respiratory distress
Gastrointestinal Exam
Gastrointestinal Exam: normal bowel sounds, non tender, soft and non distended
Musculoskeletal Exam
Musculoskeletal Exam: edema (Left lower extremity compared to the right lower extremity)
Skin Exam
Skin Exam: erythema, redness, warmth and other (Right lower leg is erythematous which extends from bottom of leg near ankle to lower part of knee, warm , ill defined, tender to palpation, distal pulses 2+. )
Course
<Jaxon Stephens MD, Resident - Last Filed: 03/25/25 01:05>
Orders/Labs/Results
Orders:
Orders
03/24/25 19:36
Complete Blood Count/With Diff Urgent
Comprehensive Metabolic Panel Urgent
Lactic Acid Urgent
Blood Culture Urgent
KYLA[facility] Source: Blood/Venous
Specimen Description:
03/24/25 23:21
US Periph Venous LOWER Ext LT Urgent
Comment:
Reason For Exam: LLE redness, swelling
03/25/25 00:39
Clindamycin HCl [Cleocin] 450 mg PO NOW STA
03/25/25 00:52
Lactate Level [Lactic Acid] Urgent
03/25/25 00:59
CeFAZolin 2 GRAM [Ancef] 2 grams in 10 ml IV NOW
Abnormal Lab Results
03/24/25
19:36
RBC 4.34 L 10^6/uL
(4.70-6.10)
RDW 14.6 H %
(11.5-14.5)
Plt Count 119 L 10^3/uL
(130-400)
MPV 11.1 H fL
(7.4-10.4)
Absolute Monos (auto) 0.9 H 10^3/uL
(0.1-0.6)
Lymphocytes % 19.1 L %
(20.5-51.1)
Monocytes % 14.5 H %
(1.7-9.3)
Carbon Dioxide 33 H mmol/L
(22-30)
BUN 31 H mg/dl
(9-20)
Glucose 117 H mg/dl
(70-99)
Lactic Acid 2.8 H mmol/L
(0.7-2.0)
Total Bilirubin 1.7 H mg/dl
(0.2-1.3)
AST 63 H U/L
(17-59)
ALT 69 H U/L
(0-50)
Alkaline Phosphatase 210 H U/L
(38-126)
03/24/25 19:36
03/24/25 19:36
Vital Signs
Initial and Last Documented VS:
Initial Vital Signs
Temp Pulse Resp BP Pulse Ox
36.6 C 68 18 116/78 97
03/24/25 19:19 03/24/25 19:19 03/24/25 19:19 03/24/25 19:19 03/24/25 19:19
Last Documented Vital Signs
Temp Pulse Resp BP Pulse Ox
36.8 C 70 17 186/74 97
03/24/25 22:48 03/25/25 00:46 03/24/25 22:48 03/24/25 22:48 03/25/25 00:45
<Junaid Castrejon MD - Last Filed: 03/25/25 01:03>
Orders/Labs/Results
Orders:
Orders
03/24/25 19:36
Complete Blood Count/With Diff Urgent
Comprehensive Metabolic Panel Urgent
Lactic Acid Urgent
Blood Culture Urgent
KYLAH Source: Blood/Venous
Specimen Description:
03/24/25 23:21
US Periph Venous LOWER Ext LT Urgent
Comment:
Reason For Exam: LLE redness, swelling
03/25/25 00:39
Clindamycin HCl [Cleocin] 450 mg PO NOW STA
03/25/25 00:52
Lactate Level [Lactic Acid] Urgent
03/25/25 00:59
CeFAZolin 2 GRAM [Ancef] 2 grams in 10 ml IV NOW
Abnormal Lab Results
03/24/25
19:36
RBC 4.34 L 10^6/uL
(4.70-6.10)
RDW 14.6 H %
(11.5-14.5)
Plt Count 119 L 10^3/uL
(130-400)
MPV 11.1 H fL
(7.4-10.4)
Absolute Monos (auto) 0.9 H 10^3/uL
(0.1-0.6)
Lymphocytes % 19.1 L %
(20.5-51.1)
Monocytes % 14.5 H %
(1.7-9.3)
Carbon Dioxide 33 H mmol/L
(22-30)
BUN 31 H mg/dl
(9-20)
Glucose 117 H mg/dl
(70-99)
Lactic Acid 2.8 H mmol/L
(0.7-2.0)
Total Bilirubin 1.7 H mg/dl
(0.2-1.3)
AST 63 H U/L
(17-59)
ALT 69 H U/L
(0-50)
Alkaline Phosphatase 210 H U/L
(38-126)
03/24/25 19:36
03/24/25 19:36
Vital Signs
Initial and Last Documented VS:
Initial Vital Signs
Temp Pulse Resp BP Pulse Ox
36.6 C 68 18 116/78 97
03/24/25 19:19 03/24/25 19:19 03/24/25 19:19 03/24/25 19:19 03/24/25 19:19
Last Documented Vital Signs
Temp Pulse Resp BP Pulse Ox
36.8 C 70 17 186/74 97
03/24/25 22:48 03/25/25 00:46 03/24/25 22:48 03/24/25 22:48 03/25/25 00:45
<Jaxon Stephens MD, Resident - Last Filed: 03/25/25 01:05>
MDM/Problems Addressed
Differential Diagnosis Includes:
cellulitis, erysipelas, chronic venous dermatitis, DVT, Necrotizing fascitis
MDM/Problems Addressed:
84 y/o male with streaking redness/ pain of the left lower leg since 2 days. On physical exam, erythema, tender to touch, ill defined, and warm. Will order peripheral venous lower extremity ultrasound to rule out DVT, and then decide on which
antibiotic to administer.
<Jaxon Stephens MD, Resident - Last Filed: 03/25/25 01:05>
*Pulse Oximetry
SaO2: 99
Oxygen Mode of Delivery: Room air
<Junaid Castrejon MD - Last Filed: 03/25/25 01:03>
Patient Management
Social determinants of health affecting care: Living situation (Lives independently) and Poor social support (No social support at home)
Discussion with other providers: Hospitalist (Discussed with hospitalist)
<Jaxon Stephens MD, Resident - Last Filed: 03/25/25 01:05>
Update Note
Update Note:
- Lower extremity u/s is negative for DVT
- Will start patient on ancef and admit to hospital
- Is now able to bear weight
ED Attending Note
<Jaxon Stephens MD, Resident - Last Filed: 03/25/25 01:05>
-
Portions of this chart may have been created with voice recognition software.� Occasional wrong word or��sound alike� substitutions may have occurred due to the inherent limitations of voice recognition software.
<Junaid Castrejon MD - Last Filed: 03/25/25 01:03>
ED Attending Note
Patient seen and examined by attending physician: Yes
I performed a history and physical exam of patient and discussed management with resident, I reviewed resident's note and agree with documented findings and plan of care.: Yes
ED Attending Note:
I have seen and evaluated the patient with a [id number] encounter. I have spoken to the resident and involved in the medical history, the physical exam, medical decision making.
Evaluation and management service: agree unless noted differently below.
Results interpretation: agree unless noted differently below.
Focused HPI: 84-year-old male with history as noted presents to the ER for evaluation of left lower extremity redness and swelling. Patient reports symptoms have been progressive over the past 3 days. He reports pain and swelling in the lower
leg/calf. He says pain is worse when he walks. He says that he has had similar episodes with cellulitis in the past. Was initially seen in urgent care but was referred to the ER for assessment. He denies any history of DVT/PE. He was previously
on Eliquis for A-fib but this was discontinued status post Watchman procedure.
Physical exam: Awake and alert nondistressed. Vital signs significant for hypertension. Afebrile. He has +2 edema in the left lower leg with erythema extending from the dorsum of the foot up terminates just distal to the knee. Strong left DP
pulse palpable. Tiny wound on the left first toe.
Medical Decision Makin-year-old male presents for evaluation of left lower extremity swelling and redness, pain. Vitals and exam as above. Sent for ultrasound of the leg which was negative for DVT. Overall clinical picture is consistent with
acute cellulitis. No signs of systemic toxicity however patient currently lives independently in the community has been having issues with ambulation due to his symptoms and does not feel comfortable with discharge�he is not sure how he will be
able to obtain his prescription for antibiotics and is concerned about his ability to get around. Will admit for continued management. Discussed case with hospitalist.
Discharge Plan
Departure
Prescriptions:
No Action
atorvastatin 80 MG tablet
80 mg PO DAILY
finasteride 5 mg Tablet
5 mg PO DAILY
cholecalciferol (vitamin D3) [Vitamin D3] 50 mcg (2,000 unit) Tablet
50 mcg PO DAILY
PreserVision AREDS-2 250-90-40-1 mg Capsule
1 tab PO BID
ascorbic acid (vitamin C) [Vitamin C] 1,000 mg Tablet
1,000 mg PO DAILY
lidocaine 5 % Adhesive Patch,Medicated
1 patch TOPICAL HS
fluticasone propionate 50 mcg/actuation [place],Suspension
2 spray INTRANASAL DAILYPRN PRN (Reason: congestion)
nitroglycerin [Nitrostat] 0.4 mg Tablet, Sublingual
0.4 mg SUBLINGUAL Q5M PRN (Reason: chest pain)
Systane (PF) 0.4-0.3 % Dropperette
1 drp BOTH EYES Q4HPRN PRN (Reason: dry eye)
nebivolol 5 mg Tablet
5 mg PO HS
clopidogrel [Plavix] 75 mg tablet
75 mg PO DAILY Qty: 30 5RF
famotidine 40 mg Tablet
40 mg PO BID
zinc sulfate 50 mg zinc (220 mg) capsule
220 mg PO DAILY
furosemide [Lasix] 40 mg tablet
60 mg PO BID 30 Days Qty: 90 0RF
potassium chloride 20 mEq packet
20 meq PO DAILY 30 Days Qty: 30 0RF
benzonatate 100 mg capsule
100 mg PO BID PRN (Reason: cough) 7 Days Qty: 14 0RF
alprazolam 0.25 mg Tablet
0.25 mg PO HS Qty: 7 0RF
Referrals:
Kyrie Navarro MD [Family Provider, Internal Medicine]
Interventions
Interventions:
*Risk Screen - Suicide Last Done: 03/24/25 19:22
*General Assessment Last Done: 03/24/25 23:29
*Neglect/Abuse Screening Last Done: 03/24/25 23:29
*ED- Fall Risk Assessment Last Done: 03/24/25 23:29
*ED COVID-19 Vaccine History Last Done: 03/24/25 23:29
ED-Skin Assessment Last Done: 03/24/25 23:29
Discharge Date and Time
Print Language: INDONESIAN
[2025-03-25] VITALS (7 sets, daily range): BP systolic 109–149; BP diastolic 35–92; BMI 25.3
[2025-03-25] MEDS: ANCEF 10 IV ×3 (01:08→17:10)
--- NOTE | 2025-03-25 01:43 | HPS.HSE ---
Family Physician
-
Family Physician: Kyrie Navarro MD
Chief Complaint
-
Left lower leg cellulitis
History of Present Illness
This is a 81-year-old male with past medical history significant for permanent atrial fibrillation status post Watchman procedure, CAD, hyperlipidemia, hypertension, GERD, history of IgG deficiency, CHF with preserved EF who presents to the
emergency department after being seen in urgent care for left lower leg swelling and redness.
He reports approximately 3 days of left lower extremity swelling and redness. Reports some pain as well as tenderness to palpation. He denies having any fevers or chills. He denies any weight gain. Reports no swelling of his right lower
extremity. He reports history of chronic venous insufficiency in addition to his congestive heart failure. He reports compliance with his diuretic regimen.
He denies any recent antibiotic use. His last hospitalization was in June.
In the emergency department patient was afebrile, blood pressure was 180/74 pulse was 70 and he was satting 97% on room air. CBC was completely unremarkable. Electrolytes shows no acute abnormality with normal BUN and creatinine. He has mild
elevations in T. bili Christos to 1.7 ALT and AST to the 60s.
Stat ultrasound of the left lower extremity was negative for DVT.
Medical History
Past Medical History
Past Medical History: Reports Other
Additional Past Medical History:
Coronary Artery Disease s/p LAD Stent in 1998
Chronic HFpEF
Permanent Atrial Fibrillation
Traumatic Intracranial Hemorrhage 08/2023
Essential Hypertension
Hyperlipidemia
Anxiety/Depression
Spinal Stenosis
BPH
Irritable Bowel Syndrome
Past Surgical History: Reports Other
Additional Past Surgical History:
Cardiac Stent
Watchman Device
Varicose Vein Stripping
Melanoma Removal
Hemorrhoidectomy
Rotator Cuff Repair
Carpal Tunnel Release
Social History
Tobacco: Other (Former pipe smoking, but quit over 40 years ago)
Alcohol: Occasional
Family History
Family History: Not pertinent
Allergies / Home Medications
Allergies reflects when Allergies were last updated in [employer].
Home Medications with original date entered in [employer]
Allergy/Medication List:
Allergies
Allergy/AdvReac Type Severity Reaction Status Date / Time
amlodipine Allergy Severe Swelling Verified 04/11/24 14:46
diltiazem Allergy Severe edema Verified 04/11/24 14:46
montelukast sodium Allergy Severe Rash Verified 04/11/24 14:46
[From Singulair]
nifedipine [Nifedipine] Allergy Severe edma Verified 04/11/24 14:46
ramipril [From Altace] Allergy Severe cough Verified 04/11/24 14:46
valsartan [From Diovan] Allergy Severe COUGH Verified 04/11/24 14:46
codeine Allergy Mild Nausea Verified 04/11/24 14:46
tramadol Allergy Mild Pharmacy Verified 04/17/24 21:00
to Review
dapagliflozin [From Farxiga] Allergy Pharmacy Verified 04/17/24 21:01
to Review
FERNANDO Inhibitors AdvReac Severe cough Verified 04/11/24 14:46
[Fernando Inhibitors]
oxycodone HCl [From Percocet] AdvReac Severe stomach Verified 04/11/24 14:46
ache
spironolactone AdvReac Severe tenderness Verified 04/11/24 14:46
of breast
tamsulosin AdvReac Severe lightheaded Verified 04/11/24 14:46
Home Medications
atorvastatin 80 mg tablet 80 mg PO DAILY High cholesterol 10/30/17
cholecalciferol (vitamin D3) 50 mcg (2,000 unit) tablet (Vitamin D3) 50 mcg PO DAILY Supplement 08/07/23
finasteride 5 mg tablet 5 mg PO DAILY prostate issues 08/07/23
omeprazole 40 mg capsule,delayed release 20 mg PO DAILY Gastrointestinal Issue 08/07/23
vit C 250 mg-vit E 90 mg-zinc 40 mg-copper 1 [id number] capsule (PreserVision AREDS-2) 1 tab PO BID Supplement 08/07/23
ascorbic acid (vitamin C) 1,000 mg tablet (Vitamin C) 1,000 mg PO DAILY Supplement 08/28/23
fluticasone propionate 50 mcg/actuation nasal spray,suspension 2 spray intranasal DAILY PRN congestion 08/28/23
lidocaine 5 % topical patch 1 patch topical DAILY PRN apply to back (L4-L5) 08/28/23
alprazolam 0.25 mg tablet 0.25 mg PO HS #7 tabs 09/10/23
zinc sulfate 50 mg zinc (220 mg) capsule 220 mg (4.4 x 50 mg zinc (220 mg)) PO DAILY #30 caps 09/10/23
furosemide 40 mg tablet 40 mg PO 1400 02/02/24
nebivolol 5 mg tablet 5 mg PO HS 02/02/24
nitroglycerin 0.4 mg sublingual tablet (Nitrostat) 0.4 mg sublingual Q5M PRN chest pain 02/02/24
peg 400-propylene glycol (PF) 0.4 %-0.3 % eye drops in a dropperette (Systane (PF)) 1 drp ophthalmic (eye) 6XD PRN dry eye 02/02/24
aspirin 81 mg capsule 81 mg PO DAILY Blood clot prevention/tx #30 caps 03/22/24
clopidogrel 75 mg tablet (Plavix) 75 mg PO DAILY Blood clot prevention/tx #30 tabs 03/22/24
furosemide 80 mg tablet 80 mg PO DAILY AT 0700 03/22/24
tramadol 50 mg tablet 50 mg PO Q8H PRN Pain #10 tabs 04/08/24
prednisone 10 mg tablet 10 mg PO DAILY #20 tabs 04/11/24
tramadol 50 mg tablet 50 mg PO Q8H PRN Pain #7 tabs 04/11/24
Review of Systems
-
Constitutional: Reports No Symptoms
EENT: Reports No Symptoms
Respiratory: Reports No Symptoms
Cardiac: Reports No Symptoms
Abdomen/GI: Reports No Symptoms
: Reports No Symptoms
Musculoskeletal: Reports Edema
Skin: Reports Rash
Neurological: Reports No Symptoms
Endocrine: Reports No Symptoms
Hematologic/Lymphatic: Reports No Symptoms
Psych: Reports No Symptoms
Physical Exam
Vital Signs
Vital Signs
Temp Pulse Resp BP Pulse Ox
98.3 F 70 17 186/74 97
03/24/25 22:48 03/25/25 00:46 03/24/25 22:48 03/24/25 22:48 03/25/25 00:45
Physical Exam
General: Comfortable and Conversant
HEENT: Anicteric and Moist mucous membranes
Respiratory: Clear, Non Labored Respirations and Decreased Breath Sounds (Bilateral bases)
Cardiac: S1/S2, Irregular Rhythm, Bradycardia and Murmur
GI: Soft, Non Tender and Distended
Rectal: Deferred by Provider
Musculoskeletal: No Clubbing, No Cyanosis and Other (+4 pitting edema bilateral lower extremities)
Skin: Warm, Dry and Other (Mild erythema bilateral lower extremities)
Neuro: Awake, Alert, Oriented and Nonfocal/grossly intact
Psych: Calm
Laboratory Results
-
03/24/25 19:36
03/24/25 19:36
Laboratory Results
Lactic Acid 1.4 mmol/L (0.7-2.0) 03/25/25 00:52
Total Bilirubin 1.7 mg/dl (0.2-1.3) H 03/24/25 19:36
AST 63 U/L (17-59) H 03/24/25 19:36
ALT 69 U/L (0-50) H 03/24/25 19:36
Alkaline Phosphatase 210 U/L (38-126) H 03/24/25 19:36
Data Reviewed
-
Ultrasound: Report Reviewed by me
Lab Data: Labs Reviewed by me
Old Records: Reviewed
Impression/Plan
-
IMPRESSION:
84-year-old with history of CHF with preserved EF, chronic venous insufficiency, hypertension, hyperlipidemia, prominent atrial fibrillation status post Watchman presents to the emergency department with isolated left lower extremity swelling and
redness consistent with cellulitis. Exam shows significant edema just in the left lower extremity with tenderness to palpation and erythematous changes. The extremity is negative for DVT on ultrasound.
PLAN:
Cellulitis -suspect left lower extremity cellulitis
-Admit to [facility]
-Blood culture sent
-Check MRSA swab
-IV cefazolin for now
-Keep left lower extremity elevated
-Pain control
CHF -overall patient appears to be euvolemic with no swelling in the right lower extremity, no JVD and no respiratory symptoms
-Continue his home Lasix of 40 mg twice daily
� Continue his Nebivolol
� For his CAD continue his statin
Atrial fibrillation
� Continue his beta-wu Nebivolol
� Status post watchman
BPH
- continue finasteride
LFT changes - mild elevation in bili and transaminases. No abdominal discomfort. No overall volume overload. Had similar when he had prior CHF exacerbation
- check lfts
- trend for now
- continue diuresis
DVT prophylaxis�Lovenox subcu
CODE STATUS�full code
--- NOTE | 2025-03-25 05:03 | PTCARENOTE ---
Pt received from ED via stretcher. Ambulated to bed w/assist x1 and SPC. AAOx3, pleasant, [facility]. Oriented to surroundings and plan of care discussed. Admission and assessment completed. Med Rec updated per pt med list. LLE warm, red, edematous,
(cellulitis marked prior to arrival to unit) elevated per MD order. Instructed to ring for assist when OOB, verbalizes understanding. Kept NPO for abd U/S. Reports pain in LLE 01/05, denies need for analgesic. #20 RFA INT flushed and patent,
redressed. Call nick w/in reach and safe environment maintained.
[2025-03-25 06:56] LABS: Hematocrit 34.4 % (39.0-52.0); Hemoglobin 11.6 g/dL (13.0-18.0); Mean Corp Hgb Conc. 33.7 g/dL (33.0-37.0); Mean Corpuscular Volume 92.2 fL (80.0-94.0); Platelet Count 104 10^3/uL (130-400); Red Cell Dist. Width 14.6 % (11.5-14.5)
[2025-03-25 07:26] LABS: ALT (SGPT) 57 U/L (0-50); AST (SGOT) 46 U/L (17-59); Albumin 3.6 g/dl (3.5-5.0); Alkaline Phosphatase 172 U/L (38-126); Blood Urea Nitrogen 29 mg/dl (9-20); Calcium 8.9 mg/dl (8.4-10.2); Carbon Dioxide 34 mmol/L (22-30); Chloride 105 mmol/L (98-107); Estimated Creatinine Clearance 49 ml/min; Glucose 102 mg/dl (70-99); Potassium 4.7 mmol/L (3.5-5.1); Sodium 144 mmol/L (135-145); Total Protein 5.6 g/dl (6.3-8.2); eGFR > 60.00
[2025-03-25] MEDS: PROSCAR 5 MG PO (08:24)
[2025-03-25] MEDS: PEPCID 20 MG PO (08:24)
[2025-03-25] MEDS: LIPITOR 80 MG PO (08:24)
[2025-03-25] MEDS: LASIX 40 MG PO ×2 (08:24→14:59)
[2025-03-25] MEDS: REMOVE LIDOCAINE PATCH REMOVE (08:25)
--- NOTE | 2025-03-25 10:50 | W.PN.HOSP.TC ---
Today's Communication/Plan
-
IV Cefazolin
LLE Elevation
Assessment / Plan
Assessment / Plan
IMPRESSION:
84-year-old with history of CHF with preserved EF, chronic venous insufficiency, hypertension, hyperlipidemia, prominent atrial fibrillation status post Watchman presents to the emergency department with isolated left lower extremity swelling and
redness consistent with cellulitis. Exam shows significant edema just in the left lower extremity with tenderness to palpation and erythematous changes. The extremity is negative for DVT on ultrasound.
Left lower extremity Cellulitis
-Blood culture sent
-MRSA screen negative
-IV cefazolin, day 2
-Keep left lower extremity elevated
-Pain control
CHF -overall patient appears to be euvolemic with no swelling in the right lower extremity, no JVD and no respiratory symptoms
- Continue his home Lasix of 40 mg PO twice daily
� Continue his Nebivolol
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
Atrial fibrillation
� Continue his beta-uw Nebivolol
� Status post watchman
BPH
- continue finasteride
Transaminitis
-resolving
-US pending
DVT prophylaxis�Lovenox subcu
CODE STATUS�full code
Anticipated Discharge: 24 - 48 hours
Subjective/Interval History
-
Date of Service: March 25, 2025
left leg redness and swelling
Objective Data
-
Labs:
Laboratory Results
03/25/25
06:32
WBC 4.3 L
Hgb 11.6 L
Hct 34.4 L
Plt Count 104 L
Sodium 144
Potassium 4.7 D
Chloride 105
Carbon Dioxide 34 H
BUN 29 H
Creatinine 1.0
Glucose 102 H
Calcium 8.9
Total Bilirubin 1.1
AST 46
ALT 57 H
Alkaline Phosphatase 172 H
Vital Signs:
Vital Signs
Temp Pulse Resp BP Pulse Ox
98.1 F 53 17 138/64 95
03/25/25 07:35 03/25/25 08:24 03/25/25 07:35 03/25/25 08:24 03/25/25 07:35
Review of Systems
-
History Source: Patient
All other systems: Reviewed and negative
Physical Exam
-
General: Well Developed, Well Nourished and No Apparent Distress
HEENT: Normocephalic, Atraumatic and Moist Mucous Membranes
Respiratory: Clear to Auscultation and Non Labored Respirations
Cardiac: S1/S2, Murmur, Rub, Gallop and Tachycardic; Negative JVD
GI: Soft, Nontender, Nondistended and Normal Bowel Sounds
Musculoskeletal: No Clubbing, No Cyanosis and Other (left leg with receding redness from marked borders, + swelling )
Skin: Warm and Dry; Negative Rash
Neuro: AO x 3 and Nonfocal/Grossly Intact
Psych: Calm
Data Reviewed
-
Diagnostic Radiology: Report Reviewed by me
Labs: Labs Reviewed by me
[2025-03-25] MEDS: ASPIR LOW (ENTERIC COATED) 81 MG PO (14:59)
[2025-03-25] MEDS: CYMBALTA DELAYED RELEASE 20 MG PO (14:59)
--- NOTE | 2025-03-25 15:42 | CM ---
CM following re: discharge planning.
Reviewed pt's chart, met with pt.
Pt is an 84 year old male, admitted with OBS status and primary dx of Cellulitis. OBS status reviewed with the pt, declined to sign, JOHNSON letter placed on chart, pt has a copy.
Pt reports he lives alone in a [place] with a ramp, has 3 supportive daughters. Pt reports he ambulates with a walker, has a wheelchair and a cane. Pt reports he is [employer] , enrolled with [facility] for services. Pt reports he has caregiver
services 3 days per week 12 hours weekly provided by [facility]. Pt expressed his desire to return back home at discharge with resumptions of caregiver services and family support.
PCP: Kyrie Navarro
Pharmacy: [facility] and [facility]
D/C plan: per pt's request, home with resumptions of caregiver services and family support.
CM will follow with discharge plan updates as hospitalization progresses
[2025-03-25] MEDS: LOVENOX 40 MG SC (17:18)
[2025-03-25] MEDS: XANAX 0.25 MG PO (21:07)
[2025-03-25] MEDS: BYSTOLIC 5 MG PO (21:07)
[2025-03-25] MEDS: LIDOCAINE 4% PATCH 1 PATCH TOPICAL (21:07)
[2025-03-25] MEDS: OCUVITE SOFTGEL 1 CAP PO (21:07)
[2025-03-26] MEDS: ANCEF 10 IV ×2 (00:07→08:54)
[2025-03-26 05:47] VITALS: BMI 25.0
[2025-03-26 06:45] LABS: Hematocrit 35.5 % (39.0-52.0); Hemoglobin 11.7 g/dL (13.0-18.0); Mean Corp Hgb Conc. 33.0 g/dL (33.0-37.0); Mean Corpuscular Volume 92.0 fL (80.0-94.0); Platelet Count 110 10^3/uL (130-400); Red Cell Dist. Width 14.7 % (11.5-14.5)
[2025-03-26 07:08] LABS: Calcium 9.3 mg/dl (8.4-10.2); Carbon Dioxide 33 mmol/L (22-30); Chloride 105 mmol/L (98-107); Estimated Creatinine Clearance 54 ml/min; Glucose 99 mg/dl (70-99); Potassium 4.4 mmol/L (3.5-5.1); Sodium 143 mmol/L (135-145); eGFR > 60.00
[2025-03-26 07:18] LABS: Blood Urea Nitrogen 25 mg/dl (9-20)
[2025-03-26 07:22] VITALS: BP 137/58
--- NOTE | 2025-03-26 08:27 | W.PN.HOSP.TC ---
Today's Communication/Plan
-
OK for DC today
Assessment / Plan
Assessment / Plan
IMPRESSION:
84-year-old with history of CHF with preserved EF, chronic venous insufficiency, hypertension, hyperlipidemia, prominent atrial fibrillation status post Watchman presents to the emergency department with isolated left lower extremity swelling and
redness consistent with cellulitis. Exam shows significant edema just in the left lower extremity with tenderness to palpation and erythematous changes. The extremity is negative for DVT on ultrasound.
Abdominal US
IMPRESSION:
No sonographic evidence for an acute abnormality of the abdomen.
Left lower extremity Cellulitis
-improving on IV Cefazolin
-left leg only on one pillow - educated on importance of greater elevation to help with swelling
-OK to DC on 5 more days Keflex
CHF -overall patient appears to be euvolemic with no swelling in the right lower extremity, no JVD and no respiratory symptoms
- Continue his home Lasix of 40 mg PO twice daily
� Continue his Nebivolol
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
Atrial fibrillation
� Continue his beta-wu Nebivolol
� Status post watchman
BPH
- continue finasteride
Transaminitis
-resolving
-US pending
DVT prophylaxis�Lovenox subcu
CODE STATUS�full code
Anticipated Discharge: Today
Subjective/Interval History
-
Date of Service: March 26, 2025
overall feeling better
left leg still with swelling, less erythema
Objective Data
-
Labs:
Laboratory Results
03/26/25
06:05
WBC 5.2
Hgb 11.7 L
Hct 35.5 L
Plt Count 110 L
Sodium 143
Potassium 4.4
Chloride 105
Carbon Dioxide 33 H
BUN 25 H
Creatinine 0.9
Glucose 99
Calcium 9.3
Vital Signs:
Vital Signs
Temp Pulse Resp BP Pulse Ox
98.0 F 47 16 137/58 100
03/26/25 07:22 03/26/25 07:22 03/26/25 07:22 03/26/25 07:22 03/26/25 07:22
I&O
03/25/25 03/26/25 03/27/25
06:59 06:59 06:59
Intake Total 960 / 960
Output Total 1875 / 1875
Balance -915 / -915
Review of Systems
-
History Source: Patient
All other systems: Reviewed and negative
Physical Exam
-
General: No Apparent Distress
HEENT: PERRLA
Respiratory: Clear to Auscultation; Negative Wheezes
Cardiac: Regular Rhythm and S1/S2
GI: Soft, Nontender and Nondistended
Musculoskeletal: Other (LLE with edema, improving erythema )
Skin: Warm and Dry; Negative Rash
Neuro: AO x 3
Psych: Calm
Data Reviewed
-
Diagnostic Radiology: Report Reviewed by me
Labs: Labs Reviewed by me
[2025-03-26] MEDS: LASIX 40 MG PO (08:55)
[2025-03-26] MEDS: PEPCID 20 MG PO (08:55)
[2025-03-26] MEDS: OCUVITE SOFTGEL 1 CAP PO (08:55)
[2025-03-26] MEDS: PROSCAR 5 MG PO (08:55)
[2025-03-26] MEDS: CYMBALTA DELAYED RELEASE 20 MG PO (08:55)
[2025-03-26] MEDS: LIPITOR 80 MG PO (08:55)
[2025-03-26] MEDS: ASPIR LOW (ENTERIC COATED) 81 MG PO (08:55)
[2025-03-26] MEDS: REMOVE LIDOCAINE PATCH 1 PATCH REMOVE (08:57)
--- NOTE | 2025-03-26 09:40 | W.DS.TRANS ---
DC Summary - [employer]
-
Discharge Instructions:
Discharge Diagnosis/Procedures left leg cellulitis
Diet Regular
Activity As tolerated
Driving Restrictions As prior to admission
Bathing Restrictions None
Instructions:
Stand-Alone Forms:
Changes to Home Medications: Yes
Discharge Medications:
DC Medications w/original date entered in [employer]
atorvastatin 80 mg tablet 80 mg PO DAILY High cholesterol 10/30/17
cholecalciferol (vitamin D3) 50 mcg (2,000 unit) tablet (Vitamin D3) 50 mcg PO DAILY Supplement 08/07/23
finasteride 5 mg tablet 5 mg PO DAILY prostate issues 08/07/23
vit C 250 mg-vit E 90 mg-zinc 40 mg-copper 1 [id number] capsule (PreserVision AREDS-2) 1 tab PO BID Supplement 08/07/23
ascorbic acid (vitamin C) 1,000 mg tablet (Vitamin C) 1,000 mg PO DAILY Supplement 08/28/23
fluticasone propionate 50 mcg/actuation nasal spray,suspension 2 spray intranasal DAILYPRN PRN congestion 08/28/23
lidocaine 5 % topical patch 1 patch topical HS back 08/28/23
alprazolam 0.25 mg tablet 0.25 mg PO HS #7 tabs 09/10/23
nebivolol 5 mg tablet 5 mg PO HS Blood Pressure 02/02/24
nitroglycerin 0.4 mg sublingual tablet (Nitrostat) 0.4 mg sublingual Q5M PRN chest pain 02/02/24
peg 400-propylene glycol (PF) 0.4 %-0.3 % eye drops in a dropperette (Systane (PF)) 1 drp BOTH EYES Q4HPRN PRN dry eye 02/02/24
zinc sulfate 50 mg zinc (220 mg) capsule 220 mg PO DAILY Supplement 07/02/24
aspirin 81 mg capsule 81 mg PO DAILY 03/25/25
duloxetine 20 mg capsule,delayed release sprinkle 20 mg PO DAILY 03/25/25
furosemide 40 mg tablet (Lasix) 40 mg PO BID Heart Failure 03/25/25
cephalexin 500 mg capsule 500 mg PO QID #20 caps 03/26/25
famotidine 20 mg tablet 20 mg PO DAILY #30 tabs 03/26/25
Home Medication Changes
Take 5 more days of Keflex 500mg 4x/day (once every 6 hours)
Decrease Pepcid to 20mg daily (can take twice a day if necessary)
Pending Results: No
--- NOTE | 2025-03-26 10:01 | CM ---
CM following re: discharge planning.
Reviewed pt's chart, met with pt.
Discharge order noted. Pt is aware, expressed his agreement and he stated his daughter will transport home. Pt remains OBS status.
Pt stated he will resume outpatient therapy at [facility] that is scheduled for Thursday03/28/25.
D/C plan: home with outpatient therapy at [facility] and family support. Daughter to transport.
[2025-03-26 11:30] VITALS: BP 136/57
--- NOTE | 2025-03-26 12:42 | W.DCSUMMARY ---
Discharge Summary
Discharge Data
Date of Admission: 03/25/25
Date of Discharge: 03/26/25
-
Pending Results: No
Hospital Course
Discharging Physician : Dr. Abril Chan
Disposition : Home
Primary care physician : Dr. Kyrie Navarro
Principal Discharge diagnosis : Left lower extremity cellulitis
Hospital Course :
Mr. Freddie Solano is a 84 yo man with hx significant for permanent atrial fibrillation status post Watchman procedure, CAD, hyperlipidemia, hypertension, GERD, history of IgG deficiency, CHF with preserved EF who presents to the emergency department
after being seen in urgent care for left lower leg swelling and redness.
In the emergency department patient was afebrile, blood pressure was 180/74 pulse was 70 and he was satting 97% on room air. CBC was unremarkable. Electrolytes shows no acute abnormality with normal BUN and creatinine. He had mild elevations in
T. bili Christos to 1.7 ALT and AST to the 60s.
Stat ultrasound of the left lower extremity was negative for DVT.
He was admitted to medicine for treatment of LLE cellulitis and started on IV Cefazolin. Erythema improved over next 48 hours, not completely resolved. His leg remains swollen. Educated on importance of LLE elevation at home. He is discharged
with 5 additional days of Keflex 500mg QID.
Of note, US in ER showed enlarged LN in left groin likely reactive to cellulitis but to be repeated as outpatient to ensure resolution - patient aware of these results.
Transaminitis resolved prior to discharge and RUQ US WNL.
Time spent on discharge was 31 minutes.
Important imaging findings :
LE US
IMPRESSION:
No evidence of DVT of the left lower extremity.
Edematous change of the left calf.
Enlarged abnormal appearing lymph node in the left groin. Clinical and laboratory correlation recommended.
Procedure findings :
Discharge Plan
-
Patient Disposition: Home (Routine Discharge)
Discharge Diagnosis/Procedures: left leg cellulitis
Diet: Regular
Activity: As tolerated
Driving Restrictions: As prior to admission
Bathing Restrictions: None
Referrals:
Kyrie Navarro MD [Family Provider, Internal Medicine] - in less than 1 week
Additional Discharge Medication Instructions: Take 5 more days of Keflex 500mg 4x/day (once every 6 hours)
Decrease Pepcid to 20mg daily (can take twice a day if necessary)
Prescriptions:
New
famotidine 20 mg Tablet
20 mg PO DAILY Qty: 30 0RF
cephalexin 500 mg Capsule
500 mg PO QID Qty: 20 0RF
Continued
atorvastatin 80 MG tablet
80 mg PO DAILY
finasteride 5 mg Tablet
5 mg PO DAILY
cholecalciferol (vitamin D3) [Vitamin D3] 50 mcg (2,000 unit) Tablet
50 mcg PO DAILY
PreserVision AREDS-2 250-90-40-1 mg Capsule
1 tab PO BID
ascorbic acid (vitamin C) [Vitamin C] 1,000 mg Tablet
1,000 mg PO DAILY
lidocaine 5 % Adhesive Patch,Medicated
1 patch TOPICAL HS
fluticasone propionate 50 mcg/actuation [place],Suspension
2 spray INTRANASAL DAILYPRN PRN (Reason: congestion)
nitroglycerin [Nitrostat] 0.4 mg Tablet, Sublingual
0.4 mg SUBLINGUAL Q5M PRN (Reason: chest pain)
Systane (PF) 0.4-0.3 % Dropperette
1 drp BOTH EYES Q4HPRN PRN (Reason: dry eye)
nebivolol 5 mg Tablet
5 mg PO HS
zinc sulfate 50 mg zinc (220 mg) capsule
220 mg PO DAILY
furosemide [Lasix] 40 mg tablet
40 mg PO BID
aspirin 81 mg Capsule
81 mg PO DAILY
duloxetine 20 mg Capsule, Delayed Rel Sprinkle
20 mg PO DAILY
alprazolam 0.25 mg Tablet
0.25 mg PO HS Qty: 7 0RF
Discontinued
famotidine 40 mg Tablet
40 mg PO BID
Discharge Orders:
Discharge Patient (As Directed); Ordered 03/26/25
Ordered By: Abril Chan
Discharge Date and Time
Discharge Date/Time: 03/26/25 12:31
Print Language: [email or web address]
== END 2025-03-26 12:31 | disposition home or self-care (01) ==
LOC: 2 NORTH 02:00
PROVIDERS: Emergency Medicine; ADMITTING PHYSICIAN Internal Medicine; ATTENDING PHYSICIAN Student in an Organized Health Care Education/Training Program; EMERGENCY PHYSICIAN Emergency Medicine; FAMILY PHYSICIAN Internal Medicine
DX: L03.116 Cellulitis of left lower limb (principal); R60.0 Localized edema; M79.89 Other specified soft tissue disorders; I11.0 Hypertensive heart disease with heart failure; F41.9 Anxiety disorder, unspecified; I25.10 Atherosclerotic heart disease of native coronary artery without angina pectoris; E78.00 Pure hypercholesterolemia, unspecified; I48.21 Permanent atrial fibrillation; K21.9 Gastro-esophageal reflux disease without esophagitis; I25.2 Old myocardial infarction; I45.10 Unspecified right bundle-branch block; N40.0 Benign prostatic hyperplasia without lower urinary tract symptoms; K58.9 Irritable bowel syndrome, unspecified; I50.32 Chronic diastolic (congestive) heart failure; R74.01 Elevation of levels of liver transaminase levels; R59.0 Localized enlarged lymph nodes; I87.2 Venous insufficiency (chronic) (peripheral); I73.00 Raynaud's syndrome without gangrene; G47.30 Sleep apnea, unspecified; F32.A Depression, unspecified; Z85.828 Personal history of other malignant neoplasm of skin; Z86.73 Personal history of transient ischemic attack (TIA), and cerebral infarction without residual deficits; Z85.820 Personal history of malignant melanoma of skin; Z82.49 Family history of ischemic heart disease and other diseases of the circulatory system; Z87.891 Personal history of nicotine dependence; Z95.5 Presence of coronary angioplasty implant and graft; Z95.818 Presence of other cardiac implants and grafts; Z60.8 Other problems related to social environment; Z60.2 Problems related to living alone; Z79.02 Long term (current) use of antithrombotics/antiplatelets; Z79.899 Other long term (current) drug therapy; Z88.5 Allergy status to narcotic agent; Z88.8 Allergy status to other drugs, medicaments and biological substances
CPT/HCPCS: 76700; 80048; 80053; 80076; 83605; 83880; 85025; 85027; 87040; 87070; 93971; 96374; 99284; G0378

== ENCOUNTER → 2025-04-13 15:54 | Outpatient (REF) | payer MEDICARE, BC, OTHER, SELFPAY | LOC: MRI 15:54 | PROVIDERS: ATTENDING PHYSICIAN Internal Medicine | DX: M54.12 Radiculopathy, cervical region (principal) | CPT/HCPCS: 72141 ==